=== PATIENT | male | born 1965 | race Caucasian/White ===

== ENCOUNTER 2020-10-15 15:22 | Outpatient (REF) | payer OTHER, SELFPAY ==
--- NOTE | 2020-10-15 15:28 | XR_ITS ---
EXAMINATION: XR knee LT 4V, XR knee RT 4V CLINICAL INFORMATION: Bilateral knee pain. COMPARISON: None. TECHNIQUE: Standing AP and lateral views of both knees were obtained with tunnel and sunrise views of each knee. FINDINGS: Right knee: No bony abnormality. Joint spaces are maintained. Patellar alignment is normal. No joint effusion is demonstrated. Left knee: 4 views of left knee are also normal. XR/XR knee RT 4V IMPRESSION: Unremarkable examination.
--- NOTE | 2020-10-15 15:28 | XR_ITS ---
EXAMINATION: XR knee LT 4V, XR knee RT 4V CLINICAL INFORMATION: Bilateral knee pain. COMPARISON: None. TECHNIQUE: Standing AP and lateral views of both knees were obtained with tunnel and sunrise views of each knee. FINDINGS: Right knee: No bony abnormality. Joint spaces are maintained. Patellar alignment is normal. No joint effusion is demonstrated. Left knee: 4 views of left knee are also normal. XR/XR knee LT 4V IMPRESSION: Unremarkable examination.
[2020-10-15 17:05] LABS: Anion Gap 12 (12-20); Blood Urea Nitrogen 13 mg/dL (9-16); Calcium 9.6 mg/dL (8.4-10.2); Carbon Dioxide 30 mmol/L (22-29); Chloride 101 mmol/L (96-108); Cholesterol 216 mg/dL; Estimated Glomerular Filt Rate > 60; Glucose Fasting 91 mg/dL (60-99); HDL Cholesterol 62 mg/dL; LDL Cholesterol Calculated 140 mg/dl; Potassium 4.4 mmol/l (3.3-5.1); Sodium 139 mmol/L (135-145); Triglycerides 73 mg/dL
[2020-10-15 17:28] LABS: Prostate Specific Antigen Scr 1.41 ng/mL (<0.05-4.0); TSH reflex Free T4 1.76 mIU/mL (0.32-4.0)
== END 2020-10-15 15:23 | disposition home or self-care (01) ==
LOC: HO.HMGCLDS 15:22
PROVIDERS: PCP Nurse Practitioner Family; Visit Provider Nurse Practitioner Family
DX: Z00.00 Encounter for general adult medical examination without abnormal findings (principal); M25.561 Pain in right knee; M25.562 Pain in left knee; Z12.5 Encounter for screening for malignant neoplasm of prostate
CPT/HCPCS: 73564; 80048; 80061; 84153; 84443

== ENCOUNTER 2021-05-26 14:26 | Outpatient (REF) | payer OTHER, SELFPAY ==
[2021-05-26 17:20] LABS: Alanine Aminotransferase 43 U/L (0-40); Albumin Level 4.4 g/dL (3.5-5.0); Alkaline Phosphatase 45 U/L (39-117); Anion Gap 14 (12-20); Aspartate Amino Transferase 37 U/L (5-37); Bilirubin Total 1.7 mg/dL (0.0-1.0); Blood Urea Nitrogen 15 mg/dL (9-16); Calcium 9.6 mg/dL (8.4-10.2); Carbon Dioxide 26 mmol/L (22-29); Chloride 103 mmol/L (96-108); Cholesterol 199 mg/dL; Estimated Glomerular Filt Rate > 60; Glucose Fasting 100 mg/dL (60-99); HDL Cholesterol 71 mg/dL; LDL Cholesterol Calculated 114 mg/dl; Potassium 4.4 mmol/L (3.3-5.1); Sodium 139 mmol/L (135-145); Total Protein 6.9 g/dL (6.5-8.0); Triglycerides 71 mg/dL
[2021-05-26 17:41] LABS: TSH reflex Free T4 1.03 uIU/mL (0.32-4.0)
== END 2021-05-26 14:27 | disposition home or self-care (01) ==
LOC: HO.HMGCLDS 14:26
PROVIDERS: PCP Nurse Practitioner Family; Visit Provider Nurse Practitioner Family
DX: E78.5 Hyperlipidemia, unspecified (principal); I10 Essential (primary) hypertension
CPT/HCPCS: 36415; 80053; 80061; 84443

== ENCOUNTER 2021-06-07 15:42 | Outpatient (REF) | payer OTHER, SELFPAY ==
--- NOTE | ~2021-06-07 | XR_ITS ---
EXAMINATION: XR CERVICAL SPINE CLINICAL INFORMATION: Neck pain. COMPARISON: None TECHNIQUE: 3 views of the cervical spine were obtained. FINDINGS: No abnormal prevertebral soft tissue swelling is identified. C7 is not totally included on imaging. No acute fracture is identified. No subluxation is seen. Disc spaces are maintained. There is some marginal spurring present at the C5-C6 level. XR/XR cervical spine 3V IMPRESSION: Limited visualization of C7. Mild degenerative change at the C5-C6 disc space level.
== END 2021-06-07 15:43 | disposition home or self-care (01) ==
LOC: HO.HMGCX 15:42
PROVIDERS: PCP Nurse Practitioner Family; Visit Provider Nurse Practitioner Family
DX: M50.90 Cervical disc disorder, unspecified, unspecified cervical region (principal)
CPT/HCPCS: 72040

== ENCOUNTER 2021-09-15 14:31 | Outpatient (REF) | payer OTHER, SELFPAY ==
--- NOTE | ~2021-09-15 | MR_ITS ---
EXAMINATION: MR CERVICAL SPINE WITHOUT CONTRAST CLINICAL INFORMATION: Cervical disc disorder. COMPARISON: None available. TECHNIQUE: MRI of the cervical spine was performed using routine sequences without contrast. FINDINGS: The cervical vertebral bodies maintain normal heights and alignment. There is no significant disc height loss. Chronic fatty endplate changes are seen at C5-C6 and C6-C7. The cord signal appears normal. Fatty marrow changes are seen at the C7-T1 facets bilaterally. The imaged portions of the intracranial contents appear normal. The extraspinal soft tissues appear normal. SPINAL LEVELS: C2-C3: No posterior disc abnormality. Moderate right facet arthropathy. No spinal canal or neural foraminal stenosis. C3-C4: Disc osteophyte complex with uncovertebral hypertrophy and moderate left and mild right facet arthropathy resulting in severe left and moderate to severe right neural foraminal stenosis. No spinal canal stenosis. C4-C5: Disc osteophyte complex with uncovertebral hypertrophy and severe right facet arthropathy resulting in severe right and mild left neural foraminal stenosis. No spinal canal stenosis. C5-C6: Disc osteophyte complex with uncovertebral hypertrophy and mild facet arthropathy resulting in mild to moderate left and mild right neural foraminal stenosis. C6-C7: Central disc protrusion resulting in mild spinal canal stenosis. Left more than right uncovertebral hypertrophy and mild facet arthropathy results in moderate left and mild right neural foraminal stenosis. C7-T1: No posterior disc abnormality. No spinal canal or neural foraminal stenosis. MR/MR cervical spine wo con IMPRESSION: Multilevel degenerative spondylotic changes. No significant narrowing of the spinal canal. A central protrusion at C6-C7 mildly narrows the spinal canal. Multilevel neural foraminal stenosis is seen and appears severe on the left and moderate to severe on the right at C3-C4, severe on the right at C4-C5 and less advanced at other levels.
== END 2021-09-15 14:32 | disposition home or self-care (01) ==
LOC: HO.MRI 14:31
PROVIDERS: PCP Nurse Practitioner Family; Visit Provider Nurse Practitioner Family
DX: M50.90 Cervical disc disorder, unspecified, unspecified cervical region (principal); R20.0 Anesthesia of skin; R20.2 Paresthesia of skin; R93.7 Abnormal findings on diagnostic imaging of other parts of musculoskeletal system
CPT/HCPCS: 72141

== ENCOUNTER 2021-09-20 | Outpatient (REF) | payer OTHER, SELFPAY ==
[2021-09-21 12:58] LABS: Influenza A PCR NEGATIVE (Negative); Influenza B PCR NEGATIVE (Negative); Resp Syncy Virus RNA Qual PCR NEGATIVE (Negative); SARS COV2 PCR INHOUSE NEGATIVE (Negative)
== END 2021-09-20 00:01 | disposition home or self-care (01) ==
LOC: HO.LNP
PROVIDERS: Visit Provider Internal Medicine
DX: Z20.822 Contact with and (suspected) exposure to COVID-19 (principal); R43.9 Unspecified disturbances of smell and taste
CPT/HCPCS: 0241U

== ENCOUNTER 2022-01-19 13:24 | Outpatient (REF) | payer OTHER, SELFPAY ==
[2022-01-19 16:29] LABS: Appearance Urine CLEAR; Color Urine YELLOW; Glucose Urine UA NEG (NEG); Leukocyte Esterase Urine NEG (NEG); Nitrite Urine NEG (NEG); Urine Blood NEG (NEG); Urine Ketones NEG (NEG); Urine Protein NEG (NEG-TRACE)
[2022-01-19 16:39] LABS: Alanine Aminotransferase 30 U/L (0-40); Albumin Level 4.4 g/dL (3.5-5.0); Alkaline Phosphatase 42 U/L (39-117); Anion Gap 14 (12-20); Aspartate Amino Transferase 32 U/L (5-37); Bilirubin Total 1.8 mg/dL (0.0-1.0); Blood Urea Nitrogen 14 mg/dL (9-16); Calcium 9.9 mg/dL (8.4-10.2); Carbon Dioxide 29 mmol/L (22-29); Chloride 102 mmol/L (96-108); Estimated Glomerular Filt Rate > 60; Glucose Fasting 112 mg/dL (60-99); Potassium 4.9 mmol/L (3.3-5.1); Sodium 140 mmol/L (135-145); Total Protein 6.9 g/dL (6.5-8.0)
[2022-01-19 17:02] LABS: Prostate Specific Antigen Scr 1.43 ng/mL (<0.05-4.0); TSH reflex Free T4 1.72 uIU/mL (0.32-4.0)
== END 2022-01-19 13:25 | disposition home or self-care (01) ==
LOC: HO.HMGCLDS 13:24
PROVIDERS: Visit Provider Nurse Practitioner Family
DX: Z00.00 Encounter for general adult medical examination without abnormal findings (principal); Z12.5 Encounter for screening for malignant neoplasm of prostate
CPT/HCPCS: 36415; 80053; 81003; 84153; 84443

== ENCOUNTER 2022-01-21 10:33 | Emergency (ER) | payer OTHER, SELFPAY ==
--- NOTE | ~2022-01-21 | CT_ITS ---
EXAMINATION: CT ABDOMEN AND PELVIS WITHOUT CONTRAST CLINICAL INFORMATION: Right lower quadrant pain COMPARISON: None. TECHNIQUE: Multidetector volumetric imaging was performed from the lung bases through the pubic symphysis. Sagittal and coronal reformatted images were obtained on the technologist workstation. This CT examination was performed using dose optimization techniques as appropriate, variously including the following: *Automated exposure control *Adjustment of mA and/or kV according to patient size (this includes techniques or standardized protocols for targeted exams where dose is matched to indication/reason for exam; i.e. extremities or head) *Use of iterative reconstruction technique FINDINGS: The lack of intravenous contrast limits evaluation of the solid visceral organs including the liver, spleen, pancreas, and kidneys. LUNG BASES: Linear atelectasis at both lung bases. No focal consolidation or mass. Normal heart size. LIVER, GALLBLADDER, AND BILIARY TREE: There is patchy low density throughout the liver consistent with heterogeneous fatty infiltration. Motion artifact further limits evaluation. No gross focal abnormality seen. The gallbladder is unremarkable with no evidence of radiopaque gallstones, gallbladder wall thickening, or obvious pericholecystic inflammatory changes. PANCREAS: Limited non-contrast evaluation is normal. No [place]-pancreatic fluid. SPLEEN: Limited non-contrast evaluation is normal. ADRENAL GLANDS: Normal; no adrenal mass. KIDNEYS AND URETERS: Limited non-contrast evaluation is normal. No hydronephrosis, hydroureter, or calculi seen. No perinephric stranding. GASTROINTESTINAL TRACT: Small bowel and colon are non-dilated. No bowel wall thickening. No pericolonic inflammatory changes to suggest colitis or diverticulitis. Normal appendix. ABDOMINAL WALL: Fat-containing right inguinal hernia. LYMPH NODES: No pathologically enlarged lymph nodes in the abdomen or pelvis. VASCULAR: Normal caliber abdominal aorta. BLADDER: Unremarkable. PELVIC VISCERA: Normal noncontrast appearance of the prostate and seminal vesicles. OSSEOUS STRUCTURES: There is calcification in the L2-L3 disc. No acute osseous abnormality. CT/CT abdomen pelvis wo con IMPRESSION: Normal appendix. Fat-containing right inguinal hernia. Heterogeneous fatty infiltration of the liver. No additional findings to explain right lower quadrant abdominal pain.
[2022-01-21 11:01] VITALS: BP 145/96; PULSE 82; RESP 18; TEMP 36.8; O2SAT 98; BMI 31.4
--- NOTE | 2022-01-21 11:31 | ED_ITS ---
HPI - Abdominal Pain General Chief Complaint: Abdominal Pain Stated Complaint: R flank pain Time Seen by Provider: 01/21/22 11:28 Source: patient Mode of arrival: ambulatory Limitations: no limitations History of Present Illness HPI narrative: 56-year-old male came in for evaluation of her right lower quadrant pain. 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 Pain is worsening with movement, no other aggravating factor, pain is relieved by sitting still, no other associated nausea or vomiting or fever. No dysuria, no urinary frequency no bloody urine. Never had history of abdominal surgery. No history of kidney stones. Related Data Previous Rx's Medication Instructions Recorded ibuprofen 600 mg tablet 600 mg PO TID #90 tab 07/29/21 losartan 100 mg tablet 100 mg PO DAILY 90 Days #90 tab 08/24/21 lorazepam 1 mg tablet 1 mg PO DAILY PRN 30 Days #30 tab 10/04/21 sildenafil 50 mg tablet 50 mg PO DAILY PRN 7 Days #7 tab 11/26/21 cyclobenzaprine 10 mg tablet 10 mg PO TID PRN #10 tab 01/21/22 Allergies Allergy/AdvReac Type Severity Reaction Status Date / Time erythromycin base Allergy hives Verified 11/08/21 17:50 Review of Systems Review of Systems All other systems are reviewed and are negative Constitutional: Reports as per HPI and Reports no additional constitutional complaints Eyes: Reports as per HPI and Reports no additional eye complaints Reports system reviewed and no additional complaints, except as documented Cardiovascular: Reports as per HPI and Reports no additional cardiovascular complaints Respiratory: Reports as per HPI and Reports no additional respiratory complaints Gastrointestinal: Reports as per HPI and Reports no additional gastrointestinal complaints Genitourinary: Reports no additional female genitourinary complaints Musculoskeletal: Reports no additional musculoskeletal complaints Skin/Breast: Reports system reviewed and no additional complaints, except as docu Psychiatric: Reports no additional psychiatric complaints Endocrine: Reports no additional endocrine complaints Hematologic/Lymphatic: Reports no additional hematologic/lymphatic complaints Allergic/Immunologic: Reports no additional allergic/immunologic complaints Reports system reviewed and no additional complaints, except as documented and Reports Abnormal speech present [facility] Social History Social History Alcohol intake: current Alcohol intake frequency: a few times a week Alcohol type: beer, wine and hard liquor Patient Tobacco Use Status: Never used Tobacco Use of substances other than those prescribed or required for medical reasons: No Advance Directives: No Advance Directives Information Provided: No Physical Exam ED Vital Signs: Vital Signs - 24 hr 01/21/22 11:01 01/21/22 13:01 01/21/22 14:10 Temperature 98.2 F 98.1 F Pulse Rate 82 74 74 Respiratory Rate 18 18 18 Blood Pressure 145/96 H 145/91 H 148/91 H Pulse Oximetry 98 98 97 BMI result Body Mass Index 31.4 Vital signs have been reviewed as appeared to be correct. Blood pressure normal. Heart rate normal. Respiration rate normal. Temperature normal. Oxygen saturation normal. Appearance: Alert. Oriented X3. No acute distress. Head: Normal external exam. Normocephalic. Atraumatic. No Michael signs noted. No raccoon eyes noted Eyes: PERRLA. EOMI. Conjunctiva and sclera normal. Eyelids normal. ENT: TM's Normal. Pharynx normal. Uvula midline. Moist mucous membranes. No trismus noted. No drooling noted. No muffled voice noted. Neck: Normal inspection. Neck supple. FROM. No adenopathy. Thyroid Normal. No meningeal signs. No neck mass noted. CVS: Normal heart rate and rhythm. Heart sound normal. No murmurs noted. Pulses normal throughout. Respiratory: No respiratory distress. Painless inspiration. Breath sounds normal. No wheezes/rales/rhonchi noted. Chest nontender. No accessory muscle usage noted or decreased air movement noted. Abdomen: Soft and nontender. Bowel sounds normal in all 4 quadrants. No distention noted. No organomegaly noted. No visible injury noted. Back: No CVA tenderness. Full range of motion noted. Skin: Skin warm and dry. Normal skin color. Normal skin turgor. No rashes/lesions/lacerations noted. Extremities: No lower extremity edema. Extremities exhibit normal range of motion. Extremities nontender. Neuro: Oriented X 3. Cranial nerve exam: II-XII are grossly intact No motor deficit. No sensory deficit. Reflexes normal. Course Course Course Narrative: Assessment and plan. [age] year male came in with right side abdominal pain and right flank pain, patient had a new job that he needs to carry heavy boxes, CT of the abdomen and pelvis showed no acute intra-abdominal pathology. Patient's symp toms is likely to be a pulled muscle, on the labs showed incidental hyperkalemia, patient had a recent physical exam 2 days ago with normal blood workup. Patient was instructed to follow up with his primary doctor for repeat potassium in the future. MDM - Abdominal Pain Medical Records Attestation: I reviewed the patient's medical records. Lab Data Attestation: I reviewed the patient's lab results. Result diagrams: 01/21/22 12:12 01/21/22 12:12 Labs: Lab Results 01/21/22 01/21/22 01/21/22 Range/Units 12:12 12:12 12:12 WBC 4.5 L (4.8-10.8) X10*3/uL RBC 4.86 (4.60-5.80) X10*6/uL Hgb 16.1 (14.0-18.0) g/dl Hct 46.2 (42.0-52.0) % MCV 95.1 (80.0-98.0) fL MCH 33.1 H (27.0-33.0) pg MCHC 34.8 (31.0-36.0) g/dl RDW 12.1 (11.0-16.0) % Plt Count 181 (160-400) X10*3/uL MPV 10.0 (9.4-12.4) fL Immature Gran % (Auto) 0.9 H (0.0-0.4) % Neut % (Auto) 65.4 (45-73) % Lymph % (Auto) 21.8 (20-40) % [place] % (Auto) 9.9 (2-11) % Eos % (Auto) 1.3 (0-4) % Baso % (Auto) 0.7 (0-2) % Lymph # (Auto) 1.0 L (1.2-4.9) X10*3/uL [place] # (Auto) 0.4 (0.1-1.2) X10*3/uL Eos # (Auto) 0.1 (0.0-0.4) X10*3/uL Baso # (Auto) 0.0 (0.0-0.2) X10*3/uL Abs Immat Gran (auto) 0.04 H (0.00-0.03) X10*3/uL Absolute Neuts (auto) 2.9 (2.0-8.3) x10*3/uL Absolute Nucleated RBC 0.000 (0.0-0.012) X10*3/uL Nucleated RBC % (auto) 0.0 (0.0-0.2) /100WBC Sodium 139 (135-145) mmol/L Potassium 5.6 H (3.3-5.1) mmol/L Chloride 103 (96-108) mmol/L Carbon Dioxide 28 (22-29) mmol/L Anion Gap 14 (12-20) BUN 13 (9-16) mg/dL Creatinine 1.01 (0.5-1.4) mg/dL Estim Creat Clear Calc 109.6 Estimated GFR > 60 Random Glucose 118 H (60-115) mg/dL Calcium 10.2 (8.4-10.2) mg/dL Total Bilirubin 1.1 H (0.0-1.0) mg/dL Direct Bilirubin 0.3 (0.0-0.5) mg/dL AST 41 H (5-37) U/L ALT 37 (0-40) U/L Alkaline Phosphatase 40 (39-117) U/L Total Protein 7.6 (6.5-8.0) g/dL Albumin 4.5 (3.5-5.0) g/dL Lipase 51 (8-78) U/L Urine Color YELLOW Urine Appearance CLEAR Urine pH 6.0 (5.0-8.0) Ur Specific [place] 1.020 (1.005-1.025) Urine Protein NEG (NEG-TRACE) MG/DL Urine Glucose (UA) NEG (NEG) MG/DL Urine Ketones NEG (NEG) MG/DL Urine Blood NEG (NEG) Urine Nitrite NEG (NEG) Ur Leukocyte Esterase NEG (NEG) Imaging Data CT scan - abdomen: Attestation: I personally reviewed and interpreted this imaging study as follows: Radiologist's impression: Normal appendix. Fat-containing right inguinal hernia. Heterogeneous fatty infiltration of the liver. No additional findings to explain right lower quadrant abdominal pain. ? Discharge Plan Discharge Clinical Impression: Acute myofascial pain Patient Disposition: Home, Self-Care Instructions: Musculoskeletal Pain (ED) Prescriptions: New cyclobenzaprine 10 mg tablet 10 mg PO TID PRN (Reason: muscle spasm) Qty: 10 0RF No Action losartan 100 mg tablet 100 mg PO DAILY 90 Days Qty: 90 0RF sildenafil 50 mg tablet 50 mg PO DAILY PRN (Reason: sexual activity) 7 Days Qty: 7 0RF Rx Instructions: administer 30 minutes to 4 hours before activity ibuprofen 600 mg tablet 600 mg PO TID Qty: 90 0RF lorazepam 1 mg tablet 1 mg PO DAILY PRN (Reason: anxiety) 30 Days Qty: 30 0RF Referrals: Иван Riley, [employer] [Primary Care Provider] - 2 days
[2022-01-21] MEDS: 0.9 % Sodium Chloride 1,000 ML 999 ML IV (12:14)
[2022-01-21] MEDS: Morphine Sulfate 2 MG/ML CARTRIDGE 1 MG IVPUSH (12:18)
[2022-01-21 12:20] LABS: MANUAL DIFF FLAG NO
--- NOTE | 2022-01-21 12:21 | PC.NURSE ---
patient a&ox3, c/o rt lower back pain 06/21, iv inserted, labs drawn, urine obtained, pt medicated per order, will continue to monitor.
[2022-01-21 12:24] LABS: Basophils Percent Auto 0.7 % (0-2); Eosinophils Absolute Auto 0.1 X10*3/uL (0.0-0.4); Eosinophils Percent Auto 1.3 % (0-4); Hematocrit 46.2 % (42.0-52.0); Hemoglobin 16.1 g/dl (14.0-18.0); Imm Gran Abs Auto 0.04 X10*3/uL (0.00-0.03); Imm Gran Pct Auto 0.9 % (0.0-0.4); Lymphocytes Percent Auto 21.8 % (20-40); Mean Corpuscular HGB Conc 34.8 g/dl (31.0-36.0); Mean Corpuscular Hemoglobin 33.1 pg (27.0-33.0); Mean Corpuscular Volume 95.1 fL (80.0-98.0); Monocytes Absolute Auto 0.4 X10*3/uL (0.1-1.2); Monocytes Percent Auto 9.9 % (2-11); Neutrophils Absolute Auto 2.9 x10*3/uL (2.0-8.3); Neutrophils Percent Auto 65.4 % (45-73); Platelet Count 181 X10*3/uL (160-400); Red Blood Count 4.86 X10*6/uL (4.60-5.80); Red Cell Distribution Width 12.1 % (11.0-16.0); White Blood Count 4.5 X10*3/uL (4.8-10.8)
[2022-01-21 12:37] LABS: Appearance Urine CLEAR; Color Urine YELLOW; Glucose Urine UA NEG (NEG); Leukocyte Esterase Urine NEG (NEG); Nitrite Urine NEG (NEG); Urine Blood NEG (NEG); Urine Ketones NEG (NEG); Urine Protein NEG (NEG-TRACE)
[2022-01-21 12:39] LABS: Alanine Aminotransferase 37 U/L (0-40); Albumin Level 4.5 g/dL (3.5-5.0); Alkaline Phosphatase 40 U/L (39-117); Anion Gap 14 (12-20); Aspartate Amino Transferase 41 U/L (5-37); Bilirubin Direct 0.3 mg/dL (0.0-0.5); Bilirubin Total 1.1 mg/dL (0.0-1.0); Blood Urea Nitrogen 13 mg/dL (9-16); Calcium 10.2 mg/dL (8.4-10.2); Carbon Dioxide 28 mmol/L (22-29); Chloride 103 mmol/L (96-108); Creatinine Clr Calc Pharmacy 109.6; Estimated Glomerular Filt Rate > 60; Glucose Random 118 mg/dL (60-115); Lipase 51 U/L (8-78); Potassium 5.6 mmol/L (3.3-5.1); Sodium 139 mmol/L (135-145); Total Protein 7.6 g/dL (6.5-8.0)
[2022-01-21] MEDS: LORazepam 1 MG TABLET PO (12:53)
--- NOTE | 2022-01-21 12:54 | PC.NURSE ---
pt requested ativan which he takes at home for anxiety, provider notfied, patient was medicated per order, will continue to monitor.
[2022-01-21 13:01] VITALS: BP 145/91; PULSE 74; RESP 18; TEMP 36.7; O2SAT 98
--- NOTE | 2022-01-21 13:11 | PC.NURSE ---
pt a&ox3, vss, bp elevated - pt didn't take hypertension medication this morning, friend at bedside, will continue to monitor.
--- NOTE | 2022-01-21 13:26 | PC.NURSE ---
patients ivf continue to run slowly will continue to monitor.
[2022-01-21 14:10] VITALS: BP 148/91; PULSE 74; RESP 18; O2SAT 97
== END 2022-01-21 14:45 | disposition home or self-care (01) ==
PROVIDERS: Emergency Provider Emergency Medicine; PCP Nurse Practitioner Family
DX: M79.10 Myalgia, unspecified site (principal); E87.5 Hyperkalemia; I10 Essential (primary) hypertension; E78.5 Hyperlipidemia, unspecified
CPT/HCPCS: 36415; 74176; 80048; 80076; 81003; 83690; 85025; 96361; 96374; 99284; J2270

== ENCOUNTER 2022-03-30 14:48 | Outpatient (REF) | payer OTHER, SELFPAY ==
[2022-03-30 15:15] LABS: Binax Internal Control QC Valid; Binax Now Covid-19 Ag Negative (Negative)
[2022-03-30 16:58] LABS: Influenza A PCR NEGATIVE (Negative); Influenza B PCR NEGATIVE (Negative); Resp Syncy Virus RNA Qual PCR NEGATIVE (Negative); SARS COV2 PCR INHOUSE POSITIVE (Negative)
== END 2022-03-30 14:49 | disposition home or self-care (01) ==
LOC: HO.HMGCLDS 14:48
PROVIDERS: PCP Nurse Practitioner Family
DX: Z20.822 Contact with and (suspected) exposure to COVID-19 (principal); R05.9 Cough, unspecified
CPT/HCPCS: 0241U; 87811; C9803

== ENCOUNTER 2023-01-22 14:34 | Outpatient (REF) | payer OTHER, SELFPAY ==
--- NOTE | ~2023-01-22 | XR_ITS ---
EXAMINATION: XR CHEST CLINICAL INFORMATION: Shortness of breath COMPARISON: None TECHNIQUE: 2 views of the chest were obtained. FINDINGS: No significant abnormality is noted involving the heart, lungs, mediastinum, bony thorax or soft tissues. XR/XR chest 2V IMPRESSION: Unremarkable examination.
[2023-01-22 16:25] LABS: MANUAL DIFF FLAG NO
[2023-01-22 16:28] LABS: Basophils Percent Auto 0.8 % (0-2); Eosinophils Percent Auto 0.8 % (0-4); Hematocrit 47.3 % (42.0-52.0); Hemoglobin 16.8 g/dl (14.0-18.0); Imm Gran Abs Auto 0.04 X10*3/uL (0.00-0.03); Imm Gran Pct Auto 0.8 % (0.0-0.4); Lymphocytes Absolute Auto 0.9 X10*3/uL (1.2-4.9); Mean Corpuscular HGB Conc 35.5 g/dl (31.0-36.0); Mean Corpuscular Hemoglobin 33.2 pg (27.0-33.0); Mean Corpuscular Volume 93.5 fL (80.0-98.0); Mean Platelet Volume 10.1 fL (9.4-12.4); Monocytes Absolute Auto 0.5 X10*3/uL (0.1-1.2); Monocytes Percent Auto 10.9 % (2-11); Neutrophils Absolute Auto 3.2 x10*3/uL (2.0-8.3); Neutrophils Percent Auto 67.7 % (45-73); Platelet Count 198 X10*3/uL (160-400); Red Blood Count 5.06 X10*6/uL (4.60-5.80); Red Cell Distribution Width 12.1 % (11.0-16.0); White Blood Count 4.8 X10*3/uL (4.8-10.8)
[2023-01-22 16:38] LABS: D Dimer High Sensitivity < 150 NG/ML
[2023-01-22 16:42] LABS: Appearance Urine Cloudy; Color Urine Yellow; Glucose Urine UA Negative (Negative); Leukocyte Esterase Urine Negative (Negative); Nitrite Urine Negative (Negative); Urine Blood Negative (Negative); Urine Ketones Trace mg/dL (Negative); Urine Protein Negative (Neg-Trace)
[2023-01-22 17:00] LABS: Alanine Aminotransferase 73 U/L (0-40); Albumin Level 4.4 g/dL (3.5-5.0); Alkaline Phosphatase 40 U/L (39-117); Anion Gap 13 (12-20); Aspartate Amino Transferase 50 U/L (5-37); Bilirubin Total 1.8 mg/dL (0.0-1.0); Blood Urea Nitrogen 14 mg/dL (9-16); Calcium 9.8 mg/dL (8.4-10.2); Carbon Dioxide 28 mmol/L (22-29); Chloride 104 mmol/L (96-108); Estimated Glomerular Filt Rate > 60; Glucose Random 120 mg/dL (60-115); Potassium 4.6 mmol/L (3.3-5.1); Sodium 140 mmol/L (135-145); Total Protein 6.7 g/dL (6.5-8.0)
[2023-01-22 17:15] LABS: TSH reflex Free T4 1.57 uIU/mL (0.32-4.0)
== END 2023-01-22 14:35 | disposition home or self-care (01) ==
LOC: HO.HMGCX 14:34
PROVIDERS: PCP Nurse Practitioner Family; Visit Provider Nurse Practitioner Family
DX: R06.02 Shortness of breath (principal)
CPT/HCPCS: 36415; 71046; 80053; 81003; 84443; 85025; 85379

== ENCOUNTER 2023-02-01 12:08 | Outpatient (REF) | payer OTHER, SELFPAY ==
[2023-02-01 14:48] LABS: CDiff Gene PCR NEGATIVE (Negative)
[2023-02-01 16:30] LABS: Adenovirus F 40/41 Not Detected (Not Detect.); Astrovirus Not Detected (Not Detect.); Campylobacter Not Detected (Not Detect.); Cryptosporidium Not Detected (Not Detect.); Cyclospora cayetanensis Not Detected (Not Detect.); E. coli EAEC Not Detected (Not Detect.); E. coli EPEC Not Detected (Not Detect.); E. coli ETEC Not Detected (Not Detect.); E. coli STEC Not Detected (Not Detect.); Entamoeba histolytica Not Detected (Not Detect.); Giardia lamblia Not Detected (Not Detect.); Norovirus GI/GII Not Detected (Not Detect.); Plesiomonas shigelloides Not Detected (Not Detect.); Rotavirus A Not Detected (Not Detect.); Salmonella Not Detected (Not Detect.); Sapovirus Not Detected (Not Detect.); Shigella sp./EIEC Not Detected (Not Detect.); Vibrio Not Detected (Not Detect.); Vibrio Cholerae Not Detected (Not Detect.); Yersinia enterocolitica Not Detected (Not Detect.)
== END 2023-02-01 12:09 | disposition home or self-care (01) ==
LOC: HO.HMGCLNP 12:08
PROVIDERS: PCP Nurse Practitioner Family; Visit Provider Nurse Practitioner Family
DX: R19.7 Diarrhea, unspecified (principal)
CPT/HCPCS: 87338; 87493; 87507

== ENCOUNTER → 2023-03-15 08:04 | Outpatient (REF) | payer OTHER, SELFPAY ==
--- NOTE | 2023-03-15 08:06 | CA_ITS ---
Transthoracic Echocardiogram Patient (Last, First, Middle): Zenon France M Gender: Male Date of : 1965 Age: 58 Procedure Date: 03/15/2023 Procedure Type: Transthoracic Echocardiogram Location: OP Height: 187.96 cm Weight: 113.4 kg BSA: 2.39 m2 Heart Rate: bpm BP: 135 / 80 mmHg Straightedge Worker: JULIO Referring MD: Иван Riley [facility] Senior Sales Operations Analyst: Aaron Rubi MD Symptoms: R00.2 - Palpitations Study Quality: Adequate with contrast ECG Rhythm: Sinus Conclusions: - 1. Normal LV systolic function with LVEF of 55-60% with mild LVH with impaired relaxation filling pattern 2. Mildly dilated left atrium 3. Normal cardiac valvular Doppler 4. Mildly dilated ascending aorta at 3.9 cm 5. Normal RV systolic pressure 6. No gross pericardial effusion Findings Procedure Information Contrast agent, definity, is being given per protocol without apparent complications. Left Ventricle Normal left ventricular size and systolic function. There is mildly increased left ventricular wall thickness. The visually estimated ejection fraction is between 55-60%. Spectral Doppler is indicative of an impaired relaxation filling pattern. E/E prime ratio is between 8 and 15 consistent with indeterminate filling pressures. Wall Motion Rest Echo Findings The basal inferior and basal inferoseptal segments are hypokinetic. All other scored wall segments showed normal motion. Right Ventricle Mildly increased right ventricular cavity size. There is normal right ventricular systolic function. Atria The left atrium is mildly dilated. There is lipomatous hypertrophy of the interatrial septum. Interatrial shunt cannot be excluded. The right atrium is likely dilated. Aortic Valve The aortic valve was not well visualized. There is no aortic valve stenosis. There is no aortic valve regurgitation. Mitral Valve Likely normal mitral valve structure and function. There is trace mitral valve regurgitation. There is no mitral valve stenosis. Pulmonic Valve The pulmonic valve was not well visualized. Tricuspid Valve Likely normal tricuspid valve structure and function. Tricuspid regurgitation envelope is inadequate for calculation of right ventricular systolic pressure. Normal right atrial pressure. Great Vessels The pulmonary artery was not well visualized. There is mild dilatation of the ascending aorta. Venous The inferior vena cava is normal in size and collapses greater than 50% with inspiration. Pericardium/Pleural There is no evidence of pericardial effusion. Prior Study Comparison No prior study available for comparison. Measurements 2D Linear Measurements IVSd: 1.31 0.6-0.9/0.6-1.0 cm LVIDd: 4.37 3.9-5.3/4.2-5.9 cm LVIDd Index: 1.83 2.4-3.2/2.2-3.1 cm/m2 LVIDs: 3.15 2.0-3.6 cm LVPWd: 1.27 0.7-1.1 cm LA Diam: 3.70 2.7-3.8/3.0-4.0 cm LAIDs Index: 1.55 1.5-2.3 cm/m2 LV Mass: 262.34 67-162/88-224 g LV Mass Index: 109.77 43-95/49-115 g/m2 LVOT Diam: 2.20 3.0+(-)1.3 cm 2D Systolic Function EF 4C: 51.70 >55% EF 2C: 61.20 >55% EF BiP: 56.50 >55% Mitral Valve MV Pk E: 0.59 MV PK A: 0.70 MV Decel Time: 365.00 E/A: 0.80 E'Lateral: 10.80 E'Medial: 8.05 E/E' Med: 7.30 E/E' Lat: 5.40 PHT: 107.00 MVA PHT: 2.06 Decel [place]: 1.61 Aortic Valve AoV Pk [place]: 1.27 AoV Mn [place]: 0.95 AoV VTI: 0.31 AoV Pk Grad: 6.00 Aov Mn Grad: 4.00 LASHAE Cont.VTI: 2.95 LVOT LVOT Pk [place]: 1.02 LVOT Mn [place]: 0.69 LVOT VTI: 0.24 LVOT Pk Grad: 4.00 LVOT Mn Grad: 2.00 LVOT Diam: 2.20 LVOT Area: 3.80 Diastolic Function MV Pk E: 0.59 MV Pk A: 0.70 E/A: 0.80 E'Medial: 8.05 E/E' Med: 7.30 E' Laterial: 10.80 E/E' Lat: 5.40 Right Ventricle TAPSE (mm): 20.30 TVS' Tor[place]: 12.30 Tricuspid Valve RA Press: 3.00 Great Vessels Aorta Sinus of Valsalva: 4.30 2.0-3.[address] [place]: 3.56 1.7-3.4 cm Ao Asc: 3.90 2.1-3.4 cm Updated in Other Vendor System with Status of Final Aaron Rubi MD electronically signed on 03/16/2023 3:48:05 PM with status of Final
== END ==
LOC: HO.CARD 08:04
PROVIDERS: PCP Nurse Practitioner Family; Visit Provider Nurse Practitioner Family
DX: R00.2 Palpitations (principal); R06.02 Shortness of breath
CPT/HCPCS: 93306; Q9957

== ENCOUNTER → 2023-03-20 10:34 | Outpatient (REF) | payer OTHER, SELFPAY ==
--- NOTE | ~2023-03-20 | NM_ITS ---
EXERCISE MYOCARDIAL PERFUSION STUDY INDICATION: Shortness of breath, assess for coronary disease and ischemia TECHNIQUE: The patient was brought in for an exercise perfusion study on 03/20/2023. Patient performed exercise as per Michael protocol and was injected 30 mCi of sestamibi once target heart rate was achieved. Images were obtained using the SPECT gamma camera interlaced with the gating device. Images were obtained in supine position. Resting perfusion study was performed on 03/23/2023. Patient was administered 30 mCi of sestamibi intravenously at rest. Images were then obtained in supine position. Images were processed with the software and compared side to side in short axis, horizontal long axis and vertical long axis views. Total DLP 119mGy-cm. FINDINGS: Raw images were reviewed. The stress perfusion study showed no significant perfusion abnormality. Both uncorrected as well as CT attenuation corrected images were reviewed. The gated study shows normal LV systolic function with calculated LVEF of 70%. LV cavity is normal in size. The gated study shows normal wall thickening and contraction of segments. Resting study shows mildly diminished tracer uptake in the basal part of inferior wall. There is improvement with CT attenuation correction testing diaphragmatic attenuation artifact. Gating at rest reveals normal wall motion with ejection fraction at 53%. The findings are consistent with no clear reversible or fixed perfusion defects. NM/NM cardiolite stress test IMPRESSION: 1. Myocardial perfusion imaging study shows normal myocardial perfusion. 2. Gated LVEF is 70% during stress and 53% during rest. 3. Transient ischemic dilatation not present. EKG component of the test reported separately.
--- NOTE | 2023-03-20 10:36 | CA_ITS ---
Acquisition Time: 2023-03-20 11:09:43 Total Exercise Time: 00:09:15 Test Indications: SOB Medications: SEE H Protocol: CK Max HR: 148 BPM 90% of Pred: 163 BPM Max BP: 190/088 mmHG Max Work Load: 10.5 METS Exercise stress test exercise 9 min 15 sec of Ck protocol achieving 90% MPHR, with report of intermittent chest pains 5/10, which seemed to correlated with isolated PVCs, with exaggerated blood pressure response to exercise (baseline 122/90, max 190/88), without EKG changes. Nuclear images pending. Test reviewed with Dr. Peraza. Referred By: Иван Riley Overread By: MILLA EDWARD
== END ==
LOC: HO.CARD 10:34
PROVIDERS: PCP Nurse Practitioner Family; Visit Provider Nurse Practitioner Family
DX: R00.2 Palpitations (principal); R06.02 Shortness of breath
CPT/HCPCS: 78452; 93017; A9500

== ENCOUNTER → 2023-03-29 13:08 | Outpatient (BNVA) | payer OTHER, SELFPAY | PROVIDERS: PCP Nurse Practitioner Family; Visit Provider Nurse Practitioner Family | DX: R40.0 Somnolence (principal); R00.2 Palpitations; R06.02 Shortness of breath; R06.83 Snoring | CPT/HCPCS: 99202 ==

== ENCOUNTER → 2023-04-10 13:35 | Outpatient (REF) | payer OTHER, SELFPAY ==
--- NOTE | 2023-04-10 13:38 | HM_ITS ---
* Total monitoring time about 2 days. * Underlying rhythm is sinus. Average ventricular rate 90/Min. * Evidence of atrial fibrillation/flutter with rapid rates. [place] 30%. Longest 1hour 40 minutes. Fastest 157/Min. * Rare PVCs. One episode of 9 beat run. Monomorphic. * No significant pauses or high-grade AV blocks. * Symptoms in patient diary and patient markers correlate with atrial fibrillation. MTDD
== END ==
LOC: HO.CARD 13:35
PROVIDERS: Visit Provider Nurse Practitioner Family
DX: R00.2 Palpitations (principal)
CPT/HCPCS: 93225

== ENCOUNTER → 2023-05-03 13:07 | Outpatient (REF) | payer OTHER, SELFPAY | LOC: HO.SL 13:07 | PROVIDERS: Visit Provider Nurse Practitioner Family | DX: G47.33 Obstructive sleep apnea (adult) (pediatric) (principal); R40.0 Somnolence; R00.2 Palpitations; R06.02 Shortness of breath | CPT/HCPCS: 95806 ==

== ENCOUNTER → 2023-05-10 14:12 | Outpatient (BNVA) | payer OTHER, SELFPAY | PROVIDERS: PCP Nurse Practitioner Family; Referring Provider Nurse Practitioner Family; Visit Provider Internal Medicine | DX: I48.91 Unspecified atrial fibrillation (principal); I10 Essential (primary) hypertension; E66.01 Morbid (severe) obesity due to excess calories; F10.10 Alcohol abuse, uncomplicated; Z68.32 Body mass index [BMI] 32.0-32.9, adult | CPT/HCPCS: 99202 ==

== ENCOUNTER 2023-06-21 09:16 | Outpatient (AMB) | payer OTHER, SELFPAY ==
--- NOTE | 2023-06-21 10:01 | MHC.OFFWIV ---
Intake Vital Signs 06/21/23 10:02 Height 6 ft 2 in BP 120/92 H Blood Pressure Location Rt brachial Position Sitting Pulse 72 Pulse Source Pulse Oximeter Temp 98 F Temp Source Oral Pulse Oximetry (%) 98 Oxygen Delivery Method Room Air Intake Visit Reasons: EST/rash on left arm spreading Intake Note: Pt is here today for rash all over body, pt states its just itchy Patient Tobacco Use Status: Never used Tobacco Allergies erythromycin base Allergy (Verified 06/21/23 10:02) hives HPI HPI Comments History of Present Illness Details The patient presents to urgent care for evaluation of hives. He states that they started yesterday on his abdomen and have since spread to his arms and legs chest and back. It is quite itchy. He states that his medications have been stable he has not changed anything recently he did changes detergent a little while ago and is unsure if this is relating to the problem. PFSH Family History Maternal Grandmother Mental health disorder Social History (Updated 05/10/23 @ 14:17 by Marya Singh) Housing: Condominium Alcohol intake: current Alcohol intake frequency: 0-2 drinks per day Alcohol type: beer, wine and hard liquor Patient Tobacco Use Status: Never used Tobacco e-Cigarette/Vaping Use: Never Used service: No Current occupational status: employed Current occupation: [employer] Current occupational exposures/hazards: No Cognitive needs: No Hearing needs: No Vision needs: No Review of Systems Eyes Reports no additional complaints ENT Reports Normal hearing present and Denies dysphagia Card Denies dyspnea and Denies slow heart rate Resp Denies cough and Denies dyspnea GI Denies dysphagia and Denies heartburn Denies dysuria Musc Denies tingling Skin/Breast Reports lesions, Denies skin ulcer and Denies unusual bruising Neuro Reports Normal hearing present, Denies Sensory deficit (Neuro), Denies tingling and Denies paresthesias Physical Exam Vital Signs: Last Vital Signs Temp 98 F 06/21/23 10:02 Pulse 72 06/21/23 10:02 BP 120/92 H 06/21/23 10:02 Pulse Ox 98 06/21/23 10:02 Oxygen Delivery Method Room Air 06/21/23 10:02 Const General: healthy appearing and no acute distress Resp Effort & Inspection: normal respiratory effort and able to speak in complete sentences Skin Other: Urticaria noted over the patient's chest abdomen back upper and lower extremities Neuro Cranial nerves: Yes Normal hearing present Sensory Exam: No Sensory deficit (Neuro) Assessment & Plan Assessment & Plan (1) Urticaria: Code(s): L50.9 - Urticaria, unspecified Plan Urticaria. Unclear etiology but patient likely allergic to something in his environment. Discussed that patient should review this with his significant other and change anything that has been new in the household. No new medications. Patient interested in starting on prednisone. Advised to continue to use Benadryl 1-2 tablets every 4-6 hours as well. Medications: New prednisone Take 4 tabs p.o. daily x4 days 10 mg PO DAILY 16 tabs 0RF Coding Level of Care Code Est Pt Level 3 (34934) Diagnoses Urticaria L50.9
[2023-06-21 10:02] VITALS: BP 120/92; PULSE 72; TEMP 36.6; O2SAT 98
== END 2023-06-21 11:16 | disposition home or self-care (01) ==
PROVIDERS: PCP Nurse Practitioner Family; Visit Provider Emergency Medicine
DX: L50.9 Urticaria, unspecified (principal)
CPT/HCPCS: 99213

== ENCOUNTER → 2023-06-27 20:30 | Outpatient (REF) | payer OTHER, SELFPAY | LOC: HO.SL 20:30 | PROVIDERS: PCP Nurse Practitioner Family; Visit Provider Nurse Practitioner Family | DX: G47.30 Sleep apnea, unspecified (principal) | CPT/HCPCS: 95811 ==

== ENCOUNTER → 2023-06-27 22:39 | Outpatient (BNV) | payer OTHER, SELFPAY | PROVIDERS: PCP Nurse Practitioner Family; Visit Provider Psychiatry & Neurology Neurology | DX: G47.33 Obstructive sleep apnea (adult) (pediatric) (principal) | CPT/HCPCS: 95811 ==

== ENCOUNTER 2023-06-28 09:09 | Outpatient (REF) | payer OTHER, SELFPAY ==
[2023-06-28 11:08] LABS: MANUAL DIFF FLAG NO
[2023-06-28 11:38] LABS: Basophils Absolute Auto 0.1 X10*3/uL (0.0-0.2); Basophils Percent Auto 0.9 % (0-2); Eosinophils Absolute Auto 0.1 X10*3/uL (0.0-0.4); Eosinophils Percent Auto 1.9 % (0-4); Hematocrit 43.5 % (42.0-52.0); Hemoglobin 15.6 g/dl (14.0-18.0); Imm Gran Abs Auto 0.04 X10*3/uL (0.00-0.03); Imm Gran Pct Auto 0.7 % (0.0-0.4); Lymphocytes Absolute Auto 1.6 X10*3/uL (1.2-4.9); Mean Corpuscular HGB Conc 35.9 g/dl (31.0-36.0); Mean Corpuscular Hemoglobin 34.1 pg (27.0-33.0); Mean Platelet Volume 10.4 fL (9.4-12.4); Monocytes Absolute Auto 0.6 X10*3/uL (0.1-1.2); Monocytes Percent Auto 11.7 % (2-11); Neutrophils Absolute Auto 2.9 x10*3/uL (2.0-8.3); Neutrophils Percent Auto 54.8 % (45-73); Platelet Count 190 X10*3/uL (160-400); Red Blood Count 4.58 X10*6/uL (4.60-5.80); Red Cell Distribution Width 11.9 % (11.0-16.0); White Blood Count 5.4 X10*3/uL (4.8-10.8)
[2023-06-28 11:54] LABS: Appearance Urine Clear; Color Urine Yellow; Glucose Urine UA Negative (Negative); Leukocyte Esterase Urine Negative (Negative); Nitrite Urine Negative (Negative); PH 6.5 (5.0-9.0); Urine Blood Negative (Negative); Urine Ketones Negative (Negative); Urine Protein Negative (Neg-Trace)
[2023-06-28 11:56] LABS: Alanine Aminotransferase 75 U/L (0-40); Albumin Level 4.3 g/dL (3.5-5.0); Alkaline Phosphatase 44 U/L (39-117); Anion Gap 12 (12-20); Aspartate Amino Transferase 64 U/L (5-37); Bilirubin Total 1.6 mg/dL (0.0-1.0); Blood Urea Nitrogen 11 mg/dL (9-16); Calcium 9.5 mg/dL (8.4-10.2); Carbon Dioxide 27 mmol/L (22-29); Chloride 102 mmol/L (96-108); Cholesterol 197 mg/dL; Estimated Glomerular Filt Rate > 60; Glucose Fasting 93 mg/dL (60-99); HDL Cholesterol 71 mg/dL; LDL Cholesterol Calculated 97 mg/dl; Sodium 137 mmol/L (135-145); Triglycerides 149 mg/dL
[2023-06-28 12:05] LABS: Prostate Specific Antigen Scr 0.99 ng/mL (<0.05-4.0)
[2023-06-28 12:14] LABS: TSH reflex Free T4 3.38 uIU/mL (0.32-4.0)
== END 2023-06-28 09:10 | disposition home or self-care (01) ==
LOC: HO.HMGCLDS 09:09
PROVIDERS: PCP Nurse Practitioner Family; Visit Provider Nurse Practitioner Family
DX: Z00.00 Encounter for general adult medical examination without abnormal findings (principal); Z12.5 Encounter for screening for malignant neoplasm of prostate
CPT/HCPCS: 36415; 80053; 80061; 81003; 84153; 84443; 85025

== ENCOUNTER 2023-07-05 15:36 | Outpatient (AMB) | payer OTHER, SELFPAY ==
[2023-07-05 15:47] VITALS: BP 98/60; PULSE 76; O2SAT 95; BMI 32.5
--- NOTE | 2023-07-05 15:47 | A.OFFPC_ITS ---
Vital Signs 07/05/23 15:47 Height 6 ft 2 in Weight 253 lb 6 oz BMI 32.5 BP 98/60 Blood Pressure Location Lt brachial Position Sitting Pulse 76 Pulse Source Pulse Oximeter Pulse Oximetry (%) 95 Oxygen Delivery Method Room Air Intake Visit Reasons: 4m follow up, sob, anxiety Allergies erythromycin base Allergy (Verified 07/05/23 17:18) hives Tobacco use date assessed: 07/05/23 Dental Screening Dental Screen Date: 07/05/23 Did you have a dental visit in the last 12 months?: Yes Did you have a dental problem in the last 6 months where you did not have access to dental care?: No Was dental information given to patient?: Patient has dentist HPI 4m follow up, sob, anxiety HPI Details Pt reports intermittent shortness of breath while golfing. He reports not having this in a while. Pt is very anxious and reports that lorazepam helps the shortness of breath, but not always. He describes frequent palpitations, that come and go. Denies any chest pain, dizziness, or headache. Hx of afib, seeing cardiology. EKG shows pt is now in a-flutter. Sending pt to ER, report called in. NOTE: awaiting results of recent sleep study PFSH Family History Maternal Grandmother Mental health disorder Social History (Updated 05/10/23 @ 14:17 by Marya Singh) Housing: Condominium Alcohol intake: current Alcohol intake frequency: 0-2 drinks per day Alcohol type: beer, wine and hard liquor Patient Tobacco Use Status: Never used Tobacco e-Cigarette/Vaping Use: Never Used service: No Current occupational status: employed Current occupation: [employer] Current occupational exposures/hazards: No Cognitive needs: No Hearing needs: No Vision needs: No Questionnaire Thrive Questionnaire Date Thrive assessed: 03/06/23 ESTHELA-7 AMB Questionnaire ESTHELA-7 Date ESTHELA - 7 assessed: 03/06/23 Source: Developed by Drs. Luis Chaudhry, Fani Maldonado, Peter Pineda and colleagues, with an educational mahesh from [employer]. Review of Systems Const Reports as per HPI Physical exam (Primary Care) Vital Signs: Last Vital Signs Pulse 76 07/05/23 15:47 BP 98/60 07/05/23 15:47 Pulse Ox 95 07/05/23 15:47 Oxygen Delivery Method Room Air 07/05/23 15:47 BMI result Body Mass Index 32.5 Tobacco/Smoking Status: Tobacco use Status Tobacco use date assessed 07/05/23 07/05/23 15:58 Patient Tobacco Use Status Never used Tobacco 07/05/23 15:51 e-Cigarette/Vaping Use Never Used 07/05/23 15:51 Thrive Assessment: Date of Thrive Assessment Date Thrive assessed 03/06/23 07/05/23 15:51 Const General: cooperative Nutritional Appearance: obese Orientation/consciousness: patient oriented x3 Resp Effort & Inspection: normal respiratory effort Auscultation: clear to auscultation bilaterally Cardio Other: a-flutter Rate: tachycardic Neuro General: patient oriented x3 Psych Appearance: grossly normal Mental Status: mental status grossly normal Speech and movement: Normal speech and movement present Affect: normal affect Attitude: cooperative Thought process: Normal thought process present Thought content: Normal thought content present Insight: Good insight present (Psych) Judgement: Good judgement present (Psych) Assessment and Plan Assessment & Plan (1) Palpitations: Code(s): R00.2 - Palpitations (2) Anxiety: Code(s): F41.9 - Anxiety disorder, unspecified (3) Atrial flutter: Code(s): I48.92 - Unspecified atrial flutter Plan The patient agreed to the use of a veterinary medical officer for this encounter. Scribed for CLARY Buckley by Rosina Mosquera veterinary medical officer, on 07/05/2023 at 16:00 EST. Coding Level of Care Code Est Pt Level 3 (72500) Diagnoses Palpitations R00.2 Anxiety F41.9 Atrial flutter I48.92
== END 2023-07-05 17:02 | disposition home or self-care (01) ==
PROVIDERS: Visit Provider Nurse Practitioner Family
DX: R00.2 Palpitations (principal); F41.9 Anxiety disorder, unspecified; I48.92 Unspecified atrial flutter
CPT/HCPCS: 99213

== ENCOUNTER 2023-07-05 17:15 | Emergency (ER) | payer OTHER, SELFPAY ==
--- NOTE | ~2023-07-05 | XR_ITS ---
EXAMINATION: XR CHEST CLINICAL INFORMATION: Shortness of breath. COMPARISON: 01/22/2023. TECHNIQUE: 2 views of the chest were obtained. FINDINGS: The cardiomediastinal silhouette is stable. Minimal lingular scarring is again seen. There is no focal lung consolidation or pleural effusion. The bony structures and soft tissues are unremarkable. XR/XR chest 2V IMPRESSION: No active cardiopulmonary disease.
--- NOTE | 2023-07-05 17:17 | ED.GENADULT ---
HPI - General Adult General Chief complaint: Arrhythmia/Palpitations Stated complaint: abnormal ekg Time Seen by Provider: 07/05/23 17:59 Source: patient and family Mode of arrival: ambulatory Limitations: no limitations History of Present Illness HPI narrative: 58-year-old male with history of atrial fibrillation, sleep apnea presents with atrial fibrillation/atrial flutter with rapid ventricular response. Patient was meeting his new primary care provider and he was noted to have a heart rate of 150. EKG was performed and demonstrated atrial flutter with variable response. When patient has the symptoms, he notes that he feels ?cruddy. ? The symptoms include lightheadedness and shortness of breath. Patient reports feeling that way approximately 50% the time. He does note that he tends to be in that rhythm when he feels poorly. It is affecting his quality of life. Therefore, he describes the symptoms as moderate to severe in nature. He denies any chest pain. Sometimes he will take an extra dose of 1 of his cardiac medications. He was seen approximately 6 weeks oboe by Cardiology who had out of diltiaze. He was on blood thinning medications. Patient denies any recent fevers, chills, cough, mucus production. Denies any nausea, vomiting, diarrhea. Denies any concerns for dehydration. Related Data Home Medications Medication Instructions Recorded Confirmed omeprazole 20 mg tablet,delayed 20 mg PO DAILY PRN 03/06/23 05/10/23 release Previous Rx's Medication Instructions Recorded losartan 100 mg tablet 100 mg PO DAILY #90 tabs 03/23/23 apixaban 5 mg tablet (Eliquis) 5 mg PO BID 30 days #60 tabs 04/19/23 diltiazem HCl 120 mg 120 mg PO DAILY #90 caps 05/10/23 capsule,extended release 24 hr lorazepam 1 mg tablet 1 mg PO DAILY PRN anxiety 30 days 05/14/23 #30 tabs metoprolol succinate 50 mg 50 mg PO DAILY #30 tabs 07/05/23 tablet,extended release 24 hr Allergies Allergy/AdvReac Type Severity Reaction Status Date / Time erythromycin base Allergy hives Verified 07/05/23 17:18 Review of Systems Review of Systems: CONSTITUTIONAL: Denies weight loss, fever and chills. HEENT: Denies changes in vision and hearing. RESPIRATORY: + SOB - cough. CV: Denies palpitations no CP. GI: Denies abdominal pain, nausea, vomiting and diarrhea. : Denies dysuria and urinary frequency. MSK: Denies myalgia and joint pain. SKIN: Denies rash and pruritus. NEUROLOGICAL: Denies headache and syncope. PSYCHIATRIC: Denies recent changes in mood. Denies anxiety and depression. All other ROS are negative unless in HPI [facility] Family History Family History Maternal Grandmother Mental health disorder Social History Social History Housing: [facility] [place] Alcohol intake: current Alcohol intake frequency: 0-2 drinks per day Alcohol type: beer, wine and hard liquor Patient Tobacco Use Status: Never used Tobacco e-Cigarette/Vaping Use: Never Used Advance Directives: No Advance Directives Information Provided: Yes service: No Current occupational status: employed Current occupation: [employer] Current occupational exposures/hazards: No Cognitive needs: No Hearing needs: No Vision needs: No Physical Exam ED Vital Signs: Vital Signs - 24 hr 07/05/23 17:19 Temperature 98 F Pulse Rate 94 Respiratory Rate 19 Blood Pressure 138/93 H Pulse Oximetry 98 Oxygen Delivery Method Room Air BMI result Body Mass Index 32.5 GEN: Well developed, no acute distress, alert, oriented HEENT: Normocephalic, atraumatic, normal external ears, nose appears normal, no oropharyngeal edema or exudates Eyes: Normal to appearance Neck: Supple, no lymphadenopathy Respiratory: Talks in complete sentences, no respiratory distress, clear to auscultation bilaterally Cardiovascular: Irregularly irregular rhythm, no murmurs rubs or gallops Abdomen: Soft, nontender, nondistended, no guarding, no rebound Back: No CVA tenderness Extremities: No clubbing cyanosis or edema Neurologic: No focal neurologic deficits, cranial nerves 2-12 intact, strength is 5/5 bilaterally Skin: No rash Course Course Course Narrative: RME- 58 year old male presents for evaluation of shortness of breath. He presents from outpatient office for a flutter. Pre- hospital HR was 124. Plan for ekg, labs chest x-ray. He is anticoagulated on Eliquis due to a fib. Maintained on Cardizem Reevaluation(s) Reevaluation #1: The workup is complete. Reviewed laboratory analysis with the patient. I contacted the patient's commercial collections driver. We will increase his metoprolol to 50 mg daily from 25 mg. He will continue with his usual Cardizem dose. He will continue anticoagulation. He will return for any worsening concerning symptoms. Time: 18:44 Medical Decision Making Medical Decision Making [facility] Narrative: 58-year-old male with paroxysmal atrial fibrillation presents with atrial fibrillation with rapid ventricular response. Differential diagnosis includes atrial fib, a flutter, SVT V-tach, VFib. Patient is significantly symptomatic. Will place patient on a quality assurance monitor final, try check routine laboratory analysis, consider intravenous doses of rate control medications. Will contact patient's commercial collections driver. Will determine if patient needs to be admitted for rate control versus rhythm control Differential Diagnosis Differential Diagnoses: The differential diagnosis associated with the presentation includes (See above) Admission/Observation Consideration of admission/observation: Escalation of care including admission/observation considered Consult Healthcare Provider Management of the patient was discussed with: Laboratory Coordinator (Sap Bi Developer) Lab Data [facility] Lab Attestation statement: I reviewed the patient's lab results. 07/05/23 17:34 07/05/23 17:34 Labs: Lab Results 07/05/23 07/05/23 07/05/23 Range/Units 17:34 17:34 17:34 WBC 6.9 (4.8-10.8) X10*3/uL RBC 5.09 (4.60-5.80) X10*6/uL Hgb 17.3 (14.0-18.0) g/dl Hct 47.8 (42.0-52.0) % MCV 93.9 (80.0-98.0) fL MCH 34.0 H (27.0-33.0) pg MCHC 36.2 H (31.0-36.0) g/dl RDW 11.9 (11.0-16.0) % Plt Count 183 (160-400) X10*3/uL MPV 9.4 (9.4-12.4) fL Immature Gran % (Auto) 0.6 H (0.0-0.4) % Neut % (Auto) 76.3 H (45-73) % Lymph % (Auto) 12.6 L (20-40) % [place] % (Auto) 9.4 (2-11) % Eos % (Auto) 0.4 (0-4) % Baso % (Auto) 0.7 (0-2) % Lymph # (Auto) 0.9 L (1.2-4.9) X10*3/uL [place] # (Auto) 0.7 (0.1-1.2) X10*3/uL Eos # (Auto) 0.0 (0.0-0.4) X10*3/uL Baso # (Auto) 0.1 (0.0-0.2) X10*3/uL Abs Immat Gran (auto) 0.04 H (0.00-0.03) X10*3/uL Absolute Neuts (auto) 5.3 (2.0-8.3) x10*3/uL Absolute Nucleated RBC 0.000 (0.0-0.012) X10*3/uL Nucleated RBC % (auto) 0.0 (0.0-0.2) /100WBC PT 13.4 H (11.1-13.3) SEC INR 1.1 (0.9-1.1) APTT 33.4 (26.0-36.4) SEC Sodium 139 (135-145) mmol/L Potassium 4.5 (3.3-5.1) mmol/L Chloride 105 (96-108) mmol/L Carbon Dioxide 22 (22-29) mmol/L Anion Gap 17 (12-20) BUN 9 (9-16) mg/dL Creatinine 1.06 (0.5-1.4) mg/dL Estim Creat Clear Calc 103.6 Estimated GFR > 60 Random Glucose 110 (60-115) mg/dL Calcium 9.8 (8.4-10.2) mg/dL Magnesium 1.9 (1.6-2.6) mg/dL Total Bilirubin 1.7 H (0.0-1.0) mg/dL AST 76 H (5-37) U/L ALT 80 H (0-40) U/L Alkaline Phosphatase 48 (39-117) U/L Troponin I High Sens (<3.5-35.0) ng/L B-Natriuretic Peptide (<100) pg/mL Total Protein 7.2 (6.5-8.0) g/dL Albumin 4.3 (3.5-5.0) g/dL Lipase 28 (8-78) U/L 07/05/23 07/05/23 Range/Units 17:34 17:34 WBC (4.8-10.8) X10*3/uL RBC (4.60-5.80) X10*6/uL Hgb (14.0-18.0) g/dl Hct (42.0-52.0) % MCV (80.0-98.0) fL MCH (27.0-33.0) pg MCHC (31.0-36.0) g/dl RDW (11.0-16.0) % Plt Count (160-400) X10*3/uL MPV (9.4-12.4) fL Immature Gran % (Auto) (0.0-0.4) % Neut % (Auto) (45-73) % Lymph % (Auto) (20-40) % [place] % (Auto) (2-11) % Eos % (Auto) (0-4) % Baso % (Auto) (0-2) % Lymph # (Auto) (1.2-4.9) X10*3/uL [place] # (Auto) (0.1-1.2) X10*3/uL Eos # (Auto) (0.0-0.4) X10*3/uL Baso # (Auto) (0.0-0.2) X10*3/uL Abs Immat Gran (auto) (0.00-0.03) X10*3/uL Absolute Neuts (auto) (2.0-8.3) x10*3/uL Absolute Nucleated RBC (0.0-0.012) X10*3/uL Nucleated RBC % (auto) (0.0-0.2) /100WBC PT (11.1-13.3) SEC INR (0.9-1.1) APTT (26.0-36.4) SEC Sodium (135-145) mmol/L Potassium (3.3-5.1) mmol/L Chloride (96-108) mmol/L Carbon Dioxide (22-29) mmol/L Anion Gap (12-20) BUN (9-16) mg/dL Creatinine (0.5-1.4) mg/dL Estim Creat Clear Calc Estimated GFR Random Glucose (60-115) mg/dL Calcium (8.4-10.2) mg/dL Magnesium (1.6-2.6) mg/dL Total Bilirubin (0.0-1.0) mg/dL AST (5-37) U/L ALT (0-40) U/L Alkaline Phosphatase (39-117) U/L Troponin I High Sens 4.1 (<3.5-35.0) ng/L B-Natriuretic Peptide 77 (<100) pg/mL Total Protein (6.5-8.0) g/dL Albumin (3.5-5.0) g/dL Lipase (8-78) U/L Independent Interpretation I performed an independent interpretation of an: EKG (Atrial flutter with a heart rate of 106, no acute ST elevations or depressions) and Plain X-Ray (Chest: No acute cardiopulmonary disease) Independent Historian Clinical information obtained from an independent historian. History obtained from or confirmed by: Spouse External Record Review External record reviewed: Office record and Other Prescription Management I considered prescription management with: Other (Cardiac medication) Chronic Conditions Patient?s care impacted by: Other (Atrial fibrillation, sleep apnea) Discharge Plan Discharge Clinical Impression: Atrial fibrillation Patient Disposition: Home, Self-Care Instructions: A-fib (Atrial Fibrillation) (ED), Blood Thinners (ED) Additional Instructions: We are recommending that you increased her metoprolol from 25 mg daily to 50 mg daily. Prescriptions: New metoprolol succinate 50 mg tablet extended release 24 hr 50 mg PO DAILY Qty: 30 0RF Discontinued metoprolol succinate 25 mg tablet extended release 24 hr 25 mg PO DAILY 30 Days Qty: 30 3RF No Action losartan 100 mg tablet 100 mg PO DAILY Qty: 90 1RF Eliquis 5 mg tablet 5 mg PO BID 30 Days Qty: 60 2RF lorazepam 1 mg tablet 1 mg PO DAILY PRN (Reason: anxiety) 30 Days Qty: 30 1RF omeprazole 20 mg tablet,delayed release (DR/EC) 20 mg PO DAILY PRN diltiazem HCl 120 mg capsule,extended release 24hr 120 mg PO DAILY Qty: 90 3RF Referrals: Augustus Peraza MD [Physician] - 1 week
--- NOTE | 2023-07-05 17:18 | ECG_ITS ---
Test Reason : PAIN Blood Pressure : / mmHG Vent. Rate : 106 BPM Atrial Rate : 000 BPM P-R Int : 000 ms QRS Dur : 082 ms QT Int : 320 ms P-R-T Axes : 000 003 025 degrees QTc Int : 425 ms Atrial fibrillation with rapid ventricular response Abnormal ECG No previous ECGs available Referred By: Shawn Streeter Electronically Signed By:JERONIMO LARA
[2023-07-05 17:19] VITALS: BP 138/93; PULSE 94; RESP 19; TEMP 36.6; O2SAT 98; BMI 32.5
[2023-07-05 17:39] LABS: MANUAL DIFF FLAG NO
[2023-07-05 17:41] LABS: Basophils Absolute Auto 0.1 X10*3/uL (0.0-0.2); Basophils Percent Auto 0.7 % (0-2); Eosinophils Percent Auto 0.4 % (0-4); Hematocrit 47.8 % (42.0-52.0); Hemoglobin 17.3 g/dl (14.0-18.0); Imm Gran Abs Auto 0.04 X10*3/uL (0.00-0.03); Imm Gran Pct Auto 0.6 % (0.0-0.4); Lymphocytes Absolute Auto 0.9 X10*3/uL (1.2-4.9); Lymphocytes Percent Auto 12.6 % (20-40); Mean Corpuscular HGB Conc 36.2 g/dl (31.0-36.0); Mean Corpuscular Volume 93.9 fL (80.0-98.0); Mean Platelet Volume 9.4 fL (9.4-12.4); Monocytes Absolute Auto 0.7 X10*3/uL (0.1-1.2); Monocytes Percent Auto 9.4 % (2-11); Neutrophils Absolute Auto 5.3 x10*3/uL (2.0-8.3); Neutrophils Percent Auto 76.3 % (45-73); Platelet Count 183 X10*3/uL (160-400); Red Blood Count 5.09 X10*6/uL (4.60-5.80); Red Cell Distribution Width 11.9 % (11.0-16.0); White Blood Count 6.9 X10*3/uL (4.8-10.8)
[2023-07-05 17:56] LABS: Alanine Aminotransferase 80 U/L (0-40); Albumin Level 4.3 g/dL (3.5-5.0); Alkaline Phosphatase 48 U/L (39-117); Anion Gap 17 (12-20); Aspartate Amino Transferase 76 U/L (5-37); Bilirubin Total 1.7 mg/dL (0.0-1.0); Blood Urea Nitrogen 9 mg/dL (9-16); Calcium 9.8 mg/dL (8.4-10.2); Carbon Dioxide 22 mmol/L (22-29); Chloride 105 mmol/L (96-108); Creatinine Clr Calc Pharmacy 103.6; Estimated Glomerular Filt Rate > 60; Glucose Random 110 mg/dL (60-115); Lipase 28 U/L (8-78); Magnesium 1.9 mg/dL (1.6-2.6); Potassium 4.5 mmol/L (3.3-5.1); Sodium 139 mmol/L (135-145); Total Protein 7.2 g/dL (6.5-8.0)
[2023-07-05 17:58] LABS: INTERNATIONAL NORM RATIO 1.1 (0.9-1.1); Prothrombin Time 13.4 SEC (11.1-13.3)
[2023-07-05 18:00] LABS: Partial Thromboplastin Time 33.4 SEC (26.0-36.4)
[2023-07-05 18:01] LABS: B Type Natriuretic Peptide 77 pg/mL (<100)
[2023-07-05 18:03] LABS: Troponin-I High Sensitivity 4.1 ng/L (<3.5-35.0)
[2023-07-05] MEDS: Metoprolol Tartrate 25 MG TABLET PO (18:47)
== END 2023-07-05 19:05 | disposition home or self-care (01) ==
PROVIDERS: Physician Assistant; Emergency Provider Emergency Medicine; PCP Nurse Practitioner Family
DX: I48.20 Chronic atrial fibrillation, unspecified (principal); I48.0 Paroxysmal atrial fibrillation; R06.02 Shortness of breath; I10 Essential (primary) hypertension; E78.5 Hyperlipidemia, unspecified; Z79.01 Long term (current) use of anticoagulants
CPT/HCPCS: 36415; 71046; 80053; 83690; 83735; 83880; 84484; 85025; 85610; 85730; 93005; 99283

== ENCOUNTER → 2023-07-23 15:11 | Outpatient (REF) | payer OTHER, SELFPAY ==
--- NOTE | 2023-07-23 15:14 | HM_ITS ---
* Total monitoring time 3 days. * Underlying rhythm is sinus as well as atrial fibrillation. Atrial fibrillation burden 52%. Longest run 12 hours. Fastest 154/Min. * While in sinus, average ventricular rate 76/Min. * Rare supraventricular ectopy. * No significant pauses or AV blocks. * Shortness of breath and diarrhea associated with atrial fibrillation but sometimes also with sinus rhythm. MTDD
== END ==
LOC: HO.CARD 15:11
PROVIDERS: PCP Nurse Practitioner Family; Visit Provider Internal Medicine
DX: I48.91 Unspecified atrial fibrillation (principal)
CPT/HCPCS: 93242

== ENCOUNTER → 2023-07-23 15:14 | Outpatient (BNV) | payer OTHER, SELFPAY | PROVIDERS: PCP Nurse Practitioner Family; Visit Provider Internal Medicine | DX: I48.91 Unspecified atrial fibrillation (principal) | CPT/HCPCS: 93244 ==

== ENCOUNTER 2023-07-30 14:38 | Outpatient (REF) | payer OTHER, SELFPAY ==
--- NOTE | 2023-07-30 15:34 | PFT_ITS ---
FLOWS: 1. FEV1 77% of predicted at 3.25 L. 2. FVC 90% of predicted at 5.01 L. 3. FEV1 to FVC ratio of 0.65. 4. No bronchodilator response. LUNG VOLUMES: 1. Total lung capacity 85% of predicted at 6.61 L. 2. Residual volume 90% of predicted at 2.19 L. 3. Slow vital capacity 82% of predicted at 4.42 L. 4. Expiratory reserve volume 37% of predicted at 0.64 L. 5. Diffusion capacity is normal. IMPRESSION: Moderate obstructive ventilatory defect with no bronchodilator response. Zeke Mcfarland MD AP/MODL / [id number]
== END 2023-07-30 14:39 | disposition home or self-care (01) ==
LOC: HO.RESP 14:38
PROVIDERS: PCP Nurse Practitioner Family; Visit Provider Nurse Practitioner Family
DX: R06.02 Shortness of breath (principal)
CPT/HCPCS: 94010; 94727; 94729

== ENCOUNTER → 2023-07-30 15:34 | Outpatient (BNV) | payer OTHER, SELFPAY | PROVIDERS: PCP Nurse Practitioner Family; Visit Provider Internal Medicine Pulmonary Disease | DX: R06.02 Shortness of breath (principal) | CPT/HCPCS: 94060; 94727; 94729 ==

== ENCOUNTER 2023-07-31 15:29 | Outpatient (AMB) | payer OTHER, SELFPAY ==
--- NOTE | 2023-07-31 15:33 | MHC.OFFVIS ---
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 Allergies erythromycin base Allergy (Verified 07/31/23 15:39) hives Medication List - Last Reconciled 07/31/23 by Blanca Reid NP-C apixaban (Eliquis) 5 mg PO BID 30 days diltiazem HCl 120 mg PO DAILY lorazepam 1 mg PO DAILY PRN 30 days losartan 100 mg PO DAILY metoprolol succinate ER 50 mg PO DAILY ondansetron 8 mg PO Q12H PRN 10 days HPI [facility] follow up/ holter follow up HPI Details Zenon is a 58-year-old male with past medical history of hypertension, hyperlipidemia, obesity, newer heart palpitations with finding of paroxysmal atrial fibrillation which is being treated with heart rate control. Recent Holter monitor done any now presents for follow-up. Today he reports that he can tell when he is in AFib. He feels the heart palpitation, some weakness and shortness of breath. He has been having to adjust his activities accordingly. He denies any discomfort in the chest area, no PND, orthopnea or edema. No presyncope, syncope, falls. He has been playing golf a lot recently and notices that when he is a in AFib he has a much more difficult time. He was in the ER with AFib RVR on 07/05/2023 and his metoprolol dose was increased. Since that time he says he has been feeling just a little bit better however continues to have symptoms. He is very concerned about this AFib diagnosis and would like it better controlled. He has been taking his anticoagulation without interruption. He admits to drinking alcoholic beverages daily. 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 He has been diagnosed with sleep apnea but has not received his CPAP mask as of yet. [facility] Family History Maternal Grandmother Mental health disorder Social History Housing: Condominium Alcohol intake: current Alcohol intake frequency: 0-2 drinks per day Alcohol type: beer, wine and hard liquor Patient Tobacco Use Status: Never used Tobacco e-Cigarette/Vaping Use: Never Used service: No Current occupational status: employed Current occupation: [employer] Current occupational exposures/hazards: No Cognitive needs: No Hearing needs: No Vision needs: No Review of Systems Const All systems reviewed & are unremarkable except as noted in HPI and below ENT Denies dizziness Card Denies chest pain, Denies chest pain at rest, Denies chest pain with activity, Reports rapid heart rate, Denies pedal edema, Denies edema, Denies leg edema, Denies lightheadedness, Reports palpitations, Denies dyspnea, Reports dyspnea on exertion and Denies orthopnea Resp Denies cough, Denies dyspnea and Reports dyspnea on exertion GI Denies hematochezia and Denies change in stool character Musc Denies abnormal gait, Reports limited range of motion, Reports muscle cramps, Denies muscle weakness, Denies numbness, Denies radiating pain into limb, Denies stiffness and Denies tingling Neuro Denies abnormal gait, Denies dizziness, Denies numbness and Denies tingling Endo Reports palpitations Physical Exam Vital Signs: Last Vital Signs Pulse 87 07/31/23 15:34 BP 120/82 07/31/23 15:34 BMI result Body Mass Index 33.5 Const General: cooperative, healthy appearing, comfortable and no acute distress Orientation/consciousness: patient oriented x3 Neck Neck: Yes normal visual inspection Resp Effort & Inspection: normal respiratory effort Auscultation: clear to auscultation bilaterally, no crackles, no rales, no rhonchi and no wheezes Cardio Jugular venous distension: no JVD Rate: regular rate Rhythm: regular rhythm Heart sounds: S1 normal heart sound present, S2 normal heart sound present, no gallops, no murmurs and no rubs Neuro General: patient oriented x3 Extrem General: Yes normal to inspection Psych Appearance: grossly normal Mental Status: mental status grossly normal Speech and movement: Normal speech and movement present Assessment & Plan Assessment & Plan (1) New onset a-fib: Code(s): I48.91 - Unspecified atrial fibrillation Plan: Newer finding of atrial fibrillation, paroxysmal. A recent echocardiogram showed EF 55-60%. Nuclear stress test was normal. Patient is able to feel the heart palpitations and some increased shortness of breath with AFib. He is currently on metoprolol XL 50 mg daily and diltiazem CD 120 mg daily. He is on Eliquis for anticoagulation and reports compliance with his meds. A Holter monitor was done on 07/23/2023 for 3 days showing sinus rhythm with average heart rate 76, atrial fibrillation 52% of the time with fastest heart rate 154. He continues to drink alcohol daily. He is in need of weight loss. He has a newer diagnosis of moderate obstructive sleep apnea and is in need of CPAP. Will reach out to sleep medicine regarding his CPAP. He states it was ordered 3 weeks ago and he has not heard anything yet. Reviewed the need for alcohol cessation/reduction. He is aware of the need for weight loss but states that he is not able to exercise routinely with his atrial fibrillation. At time of this visit he is in sinus rhythm, heart tones regular, rate 87. Will plan to review medication management with Dr. 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 Patient may require anti arrhythmic to help suppress AFib. (2) Sleep apnea: Comment: Moderate degree of sleep apnea. The AHI was 22/hr and oxygen ros was 78% Code(s): G47.30 - Sleep apnea, unspecified Plan: As above. (3) Palpitations: Code(s): R00.2 - Palpitations (4) SOB (shortness of breath): Code(s): R06.02 - Shortness of breath (5) Excessive drinking alcohol: Code(s): F10.10 - Alcohol abuse, uncomplicated Plan: Daily alcohol use. Works as a buffet manager. Informed that alcohol can increase the incidence of atrial fibrillation. Recommended cessation/reduction Orders: Referrals Sleep Medicine Referral G47.30 - Sleep apnea, unspecified Coding Level of Care Code Est Pt Level 4 (29312) Diagnoses New onset a-fib I48.91 Sleep apnea G47.30 Palpitations R00.2 SOB (shortness of breath) R06.02 Excessive drinking alcohol F10.10 Time Spent (min) 30
[2023-07-31 15:34] VITALS: BP 120/82; PULSE 87; BMI 33.5
== END 2023-07-31 16:13 | disposition home or self-care (01) ==
PROVIDERS: PCP Nurse Practitioner Family; Visit Provider Nurse Practitioner Family
DX: I48.91 Unspecified atrial fibrillation (principal); G47.30 Sleep apnea, unspecified; R00.2 Palpitations; R06.02 Shortness of breath; F10.10 Alcohol abuse, uncomplicated
CPT/HCPCS: 99214

== ENCOUNTER → 2023-07-31 15:29 | Outpatient (BNVA) | payer OTHER, SELFPAY | PROVIDERS: PCP Nurse Practitioner Family; Visit Provider Nurse Practitioner Family | DX: I48.19 Other persistent atrial fibrillation (principal); R00.2 Palpitations; R06.02 Shortness of breath; G47.30 Sleep apnea, unspecified; F10.10 Alcohol abuse, uncomplicated; Z79.01 Long term (current) use of anticoagulants | CPT/HCPCS: 99212 ==

== ENCOUNTER 2023-09-20 15:00 | Outpatient (AMB) | payer OTHER, SELFPAY ==
[2023-09-20 15:02] VITALS: BP 124/82; PULSE 67; O2SAT 96; BMI 32.8
--- NOTE | 2023-09-20 15:02 | MHC.OFFVIS ---
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 His PFT showed underlying moderate obstructive ventilatory defect with no bronchodilator response. Patient denies any pulmonary related concerns or complaints, particularly dyspnea on exertion. He has also been recently diagnosed with AFib and now on rate control. PFSH Family History Maternal Grandmother Mental health disorder [facility] Alcohol intake: current Alcohol intake frequency: 0-2 drinks per day Alcohol type: beer, wine and hard liquor Patient Tobacco Use Status: Never used Tobacco e-Cigarette/Vaping Use: Never Used service: No Current occupational status: employed Current occupation: [employer] Current occupational exposures/hazards: No Cognitive needs: No Hearing needs: No Vision needs: No Review of Systems Const Denies daytime sleepiness, Denies excessive sweating, Denies fatigue, Denies fever(s), Denies lethargy, Denies malaise, Denies night sweats, Denies snoring and Denies weight loss Eyes Denies blurry vision and Denies itchy eyes ENT Denies nasal congestion, Denies post nasal drip, Denies sinus pain, Denies sinus pressure and Denies other ( Thrush) Card Denies chest pain, Denies pedal edema, Denies dyspnea, Denies orthopnea and Denies paroxysmal nocturnal dyspnea Resp Denies cough, Denies hemoptysis, Denies excessive phlegm production, Denies dyspnea, Denies snoring and Denies wheezing GI Denies abdominal pain and Denies heartburn Musc Denies myalgias, Denies arthralgias and Denies joint swelling Skin/Breast Denies rash Neuro Denies memory loss and Denies seizure-like activity Psych Denies abnormal sleep pattern, Denies anxiety and Denies memory loss Endo Denies excessive sweating, Denies fatigue and Denies heat intolerance Jerzy/Lymph Denies easy bruising Aller/Immun Denies itchy eyes, Denies seasonal rhinorrhea and Denies wheezing Physical Exam Vital Signs: Last Vital Signs Pulse 67 09/20/23 15:02 BP 124/82 09/20/23 15:02 Pulse Ox 96 09/20/23 15:02 Oxygen Delivery Method Room Air 09/20/23 15:02 BMI result Body Mass Index 32.8 Const General: no acute distress and alert Nutritional Appearance: not obese Orientation/consciousness: Other orientation findings ( oriented) HEENT Head: Yes atraumatic Eyes General: appearance normal, both eyes and all related structures Sclerae: sclerae normal EOM: EOMs intact bilaterally Neck Neck: Yes supple Lymphatic: no lymphadenopathy noted Resp Effort & Inspection: normal respiratory effort and no use of accessory muscles Auscultation: clear to auscultation bilaterally Cardio Rate: regular rate Rhythm: regular rhythm Heart sounds: no gallops, no murmurs and no rubs Skin General skin exam: other ( warm) Extrem General: No clubbing, No cyanosis and No edema Assessment & Plan Assessment & Plan (1) COPD (chronic obstructive pulmonary disease): Code(s): J44.9 - Chronic obstructive pulmonary disease, unspecified Plan: Pulmonary function test reviewed. Underlying COPD of unclear symptomatology. Will start on empiric Incruse. (2) Pulmonary nodules: Code(s): R91.8 - Other nonspecific abnormal finding of lung field Plan: Will obtain CT chest for evaluation of lung parenchyma. Orders: Orders CT chest wo IV con Today R91.8 - Other nonspecific abnormal finding of lung field Medications: New umeclidinium 62.5 mcg/actuation (Incruse Ellipta) 1 inh inhalation DAILY 1 ea 6RF 30 days J44.9 - Chronic obstructive pulmonary disease, unspecified Coding Level of Care Code New Pt Level 4 (34328) Diagnoses COPD (chronic obstructive pulmonary disease) J44.9 Pulmonary nodules R91.8
== END 2023-09-20 15:28 | disposition home or self-care (01) ==
PROVIDERS: PCP Nurse Practitioner Family; Referring Provider Nurse Practitioner Family; Visit Provider Internal Medicine Pulmonary Disease
DX: J44.9 Chronic obstructive pulmonary disease, unspecified (principal); R91.8 Other nonspecific abnormal finding of lung field
CPT/HCPCS: 99214

== ENCOUNTER → 2023-09-20 15:00 | Outpatient (BNVA) | payer OTHER, SELFPAY | PROVIDERS: PCP Nurse Practitioner Family; Referring Provider Nurse Practitioner Family; Visit Provider Internal Medicine Pulmonary Disease | DX: R91.8 Other nonspecific abnormal finding of lung field (principal); J44.9 Chronic obstructive pulmonary disease, unspecified | CPT/HCPCS: 99212 ==

== ENCOUNTER 2023-09-27 13:06 | Outpatient (AMB) | payer OTHER, SELFPAY ==
[2023-09-27 13:16] VITALS: BP 120/80; PULSE 70; BMI 32.5
--- NOTE | 2023-09-27 13:16 | A.OFFVIS_ITS ---
Intake Vital Signs 09/27/23 13:16 Height 6 ft 2 in Weight 253 lb 8.505 oz BMI 32.5 BP 120/80 Blood Pressure Location Lt brachial Position Sitting Pulse 70 Pulse Source Pulse Oximeter Intake Visit Reasons: f/u after testing Allergies erythromycin base Allergy (Verified 09/20/23 15:07) hives Medication List - Last Reconciled 09/27/23 by Teena Ravi NP apixaban (Eliquis) 5 mg PO BID 30 days cholecalciferol (vitamin D3) 1,250 mcg PO QWEEK diltiazem HCl 120 mg PO DAILY lorazepam 1 mg PO DAILY PRN 30 days metoprolol tartrate 50 mg orally 100mg in AM and 50mg in PM; milk thistle 150 mg PO BID omeprazole 20 mg PO DAILY ondansetron 8 mg PO Q12H PRN 10 days umeclidinium 62.5 mcg/actuation (Incruse Ellipta) 1 inh inhalation DAILY 30 days HPI HPI Comments History of Present Illness Details 58-year-old male presents today for a fo llow-up. He has a history of hypertesion, hyperlipidemia, PAD, and sleep apnea. He reports he has been doing well other than high stress and anxiety. Denies any chest pain, shortness of breath, swelling, syncope, or bleeding. He states he has just started using his CPAP this week and has already noticed a difference. He reports overall less atrial fibrillation episodes. Reports doing well on the medications. States he has been doing 100mg of metoprolol in the morning and 50mg in the evening due to having lower blood pressures in the evening. [facility] Family History Maternal Grandmother Mental health disorder Social History Housing: Condominium Alcohol intake: current Alcohol intake frequency: 0-2 drinks per day Alcohol type: beer, wine and hard liquor Patient Tobacco Use Status: Never used Tobacco e-Cigarette/Vaping Use: Never Used service: No Current occupational status: employed Current occupation: [employer] Current occupational exposures/hazards: No Cognitive needs: No Hearing needs: No Vision needs: No Review of Systems Const Denies chills, Denies fatigue, Denies fever(s), Denies frequent falls, Denies weakness, Denies weight gain and Denies weight loss ENT Denies dizziness Card Denies chest pain, Denies chest pain with activity, Denies syncope, Denies rapid heart rate, Denies pedal edema, Denies irregular heart rhythm, Denies leg edema, Denies lightheadedness, Denies palpitations, Denies dyspnea, Denies dyspnea on exertion, Denies orthopnea and Denies other (LOC) Resp Denies cough, Denies dyspnea and Denies dyspnea on exertion GI Denies hematochezia and Denies change in bowel habits Musc Denies abnormal gait, Denies arthralgias, Denies muscle weakness, Denies numbness, Denies radiating pain into limb and Denies tingling Neuro Denies abnormal gait, Denies dizziness, Denies syncope, Denies frequent falls, Denies numbness, Denies tingling and Denies weakness Endo Denies fatigue and Denies palpitations Physical Exam Vital Signs: Last Vital Signs Pulse 70 09/27/23 13:16 BP 120/80 09/27/23 13:16 BMI result Body Mass Index 32.5 Const General: healthy appearing and no acute distress Orientation/consciousness: patient oriented x3 HEENT Head: Yes normal to inspection Eyes General: appearance normal, both eyes and all related structures Neck Neck: Yes normal visual inspection Chest Chest palpation & inspection: normal inspection of the chest Resp Effort & Inspection: normal respiratory effort Auscultation: clear to auscultation bilaterally Cardio Jugular venous distension: no JVD Palpation: normal PMI Rate: regular rate Rhythm: regular rhythm Heart sounds: S1 normal heart sound present, S2 normal heart sound present, no click, no gallops, no murmurs and no rubs GI Inspection: Yes normal to inspection Palpation (GI): Soft to palpation Skin General skin exam: no rashes or lesions noted Neuro General: patient oriented x3 Extrem General: Yes normal to inspection Psych Appearance: grossly normal Office Procedures EKG Details: EKG today. Normal Sinus Rhythm. Rate 64bpm. QTc 404ms [id number], Complete Assessment & Plan Assessment & Plan (1) HTN (hypertension): Code(s): I10 - Essential (primary) hypertension Qualifiers: Hypertension type: essential hypertension Qualified Code(s): I10 - Essential (primary) hypertension (2) Atrial fibrillation: Code(s): I48.91 - Unspecified atrial fibrillation (3) Palpitations: Code(s): R00.2 - Palpitations Plan Continue medications as currently prescribed. Monitor blood pressures with medications. Discussed with patient reasons for his medications in detail. Patient reports understanding. Report any new or worsening symptoms. Coding Level of Care Code Est Pt Level 3 (02781) Diagnoses Essential hypertension I10 Hypertension type: essential hypertension Atrial fibrillation I48.91 Palpitations R00.2 CPT Codes EKG - CPT: 46751-[id number], Complete ([id number])
== END 2023-09-27 13:53 | disposition home or self-care (01) ==
PROVIDERS: PCP Nurse Practitioner Family; Visit Provider Nurse Practitioner
DX: I10 Essential (primary) hypertension (principal); I48.91 Unspecified atrial fibrillation; R00.2 Palpitations
CPT/HCPCS: 93010; 99213

== ENCOUNTER → 2023-09-27 13:06 | Outpatient (BNVA) | payer OTHER, SELFPAY | PROVIDERS: PCP Nurse Practitioner Family; Visit Provider Nurse Practitioner | DX: I48.91 Unspecified atrial fibrillation (principal); I10 Essential (primary) hypertension; R00.2 Palpitations | CPT/HCPCS: 93005; 99212 ==

== ENCOUNTER 2023-11-01 13:04 | Outpatient (REF) | payer OTHER, SELFPAY | END 2023-11-01 13:05 | disposition home or self-care (01) | LOC: HO.CT 13:04 | PROVIDERS: PCP Nurse Practitioner Family; Visit Provider Internal Medicine Pulmonary Disease | DX: R91.8 Other nonspecific abnormal finding of lung field (principal) | CPT/HCPCS: 71250 ==

== ENCOUNTER 2023-11-15 14:19 | Outpatient (AMB) | payer OTHER, SELFPAY ==
[2023-11-15 14:21] VITALS: BP 128/82; PULSE 66; O2SAT 97; BMI 32.5
--- NOTE | 2023-11-15 14:21 | MHC.OFFVIS ---
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 At the last office visit patient was started on Incruse with unclear benefit. He denies any acute exacerbations. His CT chest did not demonstrate significant pulmonary nodules or emphysema. PFSH Family History Maternal Grandmother Mental health disorder Social History Housing: Condominium Alcohol intake: current Alcohol intake frequency: 0-2 drinks per day Alcohol type: beer, wine and hard liquor Patient Tobacco Use Status: Never used Tobacco e-Cigarette/Vaping Use: Never Used service: No Current occupational status: employed Current occupation: [employer] Current occupational exposures/hazards: No Cognitive needs: No Hearing needs: No Vision needs: No Review of Systems Const Denies daytime sleepiness, Denies excessive sweating, Denies fatigue, Denies fever(s), Denies lethargy, Denies malaise, Denies night sweats, Denies snoring and Denies weight loss Eyes Denies blurry vision and Denies itchy eyes ENT Denies nasal congestion, Denies post nasal drip, Denies sinus pain, Denies sinus pressure and Denies other ( Thrush) Card Denies chest pain, Denies pedal edema, Denies dyspnea, Reports dyspnea on exertion, Denies orthopnea and Denies paroxysmal nocturnal dyspnea Resp Denies cough, Denies hemoptysis, Denies excessive phlegm production, Denies dyspnea, Reports dyspnea on exertion, Denies snoring and Denies wheezing GI Denies abdominal pain and Denies heartburn Musc Denies myalgias, Denies arthralgias and Denies joint swelling Skin/Breast Denies rash Neuro Denies memory loss and Denies seizure-like activity Psych Denies abnormal sleep pattern, Denies anxiety and Denies memory loss Endo Denies excessive sweating, Denies fatigue and Denies heat intolerance Jerzy/Lymph Denies easy bruising Aller/Immun Denies itchy eyes, Denies seasonal rhinorrhea and Denies wheezing Physical Exam Vital Signs: Last Vital Signs Pulse 66 11/15/23 14:21 BP 128/82 11/15/23 14:21 Pulse Ox 97 11/15/23 14:21 Oxygen Delivery Method Room Air 11/15/23 14:21 BMI result Body Mass Index 32.5 Const General: no acute distress and alert Nutritional Appearance: not obese Orientation/consciousness: Other orientation findings ( oriented) HEENT Head: Yes atraumatic Eyes General: appearance normal, both eyes and all related structures Sclerae: sclerae normal EOM: EOMs intact bilaterally Neck Neck: Yes supple Lymphatic: no lymphadenopathy noted Resp Effort & Inspection: normal respiratory effort and no use of accessory muscles Auscultation: clear to auscultation bilaterally Cardio Rate: regular rate Rhythm: regular rhythm Heart sounds: no gallops, no murmurs and no rubs Skin General skin exam: other ( warm) Extrem General: No clubbing, No cyanosis and No edema Assessment & Plan Assessment & Plan (1) COPD (chronic obstructive pulmonary disease): Code(s): J44.9 - Chronic obstructive pulmonary disease, unspecified Plan: Patient has misplaced his Incruse. Restart Incruse. (2) Pulmonary nodules: Code(s): R91.8 - Other nonspecific abnormal finding of lung field Plan: Results of CT chest reviewed, no worrisome nodules or emphysema at this time. Medications: Refilled umeclidinium 62.5 mcg/actuation (Incruse Ellipta) 1 inh inhalation DAILY 1 ea 6RF 30 days J44.9 - Chronic obstructive pulmonary disease, unspecified Coding Level of Care Code Est Pt Level 4 (93667) Diagnoses COPD (chronic obstructive pulmonary disease) J44.9 Pulmonary nodules R91.8
== END 2023-11-15 14:42 | disposition home or self-care (01) ==
PROVIDERS: PCP Nurse Practitioner Family; Visit Provider Internal Medicine Pulmonary Disease
DX: J44.9 Chronic obstructive pulmonary disease, unspecified (principal); R91.8 Other nonspecific abnormal finding of lung field
CPT/HCPCS: 99214

== ENCOUNTER → 2023-11-15 14:19 | Outpatient (BNVA) | payer OTHER, SELFPAY | PROVIDERS: PCP Nurse Practitioner Family; Visit Provider Internal Medicine Pulmonary Disease | DX: J44.9 Chronic obstructive pulmonary disease, unspecified (principal); R91.8 Other nonspecific abnormal finding of lung field | CPT/HCPCS: 99212 ==

== ENCOUNTER 2024-01-10 14:06 | Outpatient (AMB) | payer OTHER, SELFPAY ==
[2024-01-10 14:08] VITALS: BP 110/70; PULSE 90; BMI 33.6
--- NOTE | 2024-01-10 14:08 | MHC.OFFVIS ---
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 Accompanied by: Self / Same As Patient Allergies erythromycin base Allergy (Verified 11/15/23 14:26) hives Medication List - Last Reconciled 01/10/24 by Augustus Peraza MD apixaban (Eliquis) 5 mg PO BID 30 days cholecalciferol (vitamin D3) 1,250 mcg PO QWEEK diltiazem HCl 120 mg PO DAILY lorazepam 1 mg PO DAILY PRN 30 days metoprolol tartrate 100 mg PO BID milk thistle 150 mg PO BID omeprazole 20 mg PO DAILY ondansetron 8 mg PO Q12H PRN 10 days umeclidinium 62.5 mcg/actuation (Incruse Ellipta) 1 inh inhalation DAILY 30 days HPI HPI Comments History of Present Illness Details Zenon returns for follow-up regarding atrial fibrillation. He states for the most part he is doing okay. Some atrial fibrillation sensations every now and then and he states he can actually say when he is in it or not. He believes he is probably having it around 20% the time from his own assessment. He takes diltiazem as well as metoprolol. He states he does take additional metoprolol doses as necessary according to how he feels. Also on anticoagulation. No other complaints like angina. Unfortunately, he has not been able to lose weight. Alcohol intake is also just about the same as before. Not able to use CPAP. [facility] Medical History JOHNNIE (obstructive sleep apnea) Paroxysmal atrial fibrillation Family History Maternal Grandmother Mental health disorder [facility] Alcohol intake: current Alcohol intake frequency: 0-2 drinks per day Alcohol type: beer, wine and hard liquor Patient Tobacco Use Status: Never used Tobacco e-Cigarette/Vaping Use: Never Used service: No Current occupational status: employed Current occupation: [employer] Current occupational exposures/hazards: No Cognitive needs: No Hearing needs: No Vision needs: No Review of Systems Const Denies chills, Denies fatigue, Denies fever(s), Denies frequent falls, Denies weakness, Denies weight gain and Denies weight loss ENT Denies dizziness Card Denies chest pain, Denies leg edema, Denies lightheadedness, Denies palpitations, Denies dyspnea and Denies dyspnea on exertion Resp Denies cough, Denies dyspnea and Denies dyspnea on exertion GI Denies hematochezia Musc Denies abnormal gait, Denies muscle weakness, Denies numbness, Denies radiating pain into limb and Denies tingling Neuro Denies abnormal gait, Denies dizziness, Denies frequent falls, Denies numbness, Denies tingling and Denies weakness Endo Denies fatigue and Denies palpitations Physical Exam Vital Signs: Last Vital Signs Pulse 90 01/10/24 14:08 BP 110/70 01/10/24 14:08 BMI result Body Mass Index 33.6 Const General: comfortable and no acute distress Orientation/consciousness: patient oriented x3 HEENT Other: Unremarkable Head: Yes normal to inspection Neck Neck: Yes normal visual inspection Chest Chest palpation & inspection: normal inspection of the chest Resp Auscultation: clear to auscultation bilaterally Cardio Palpation: normal PMI Heart sounds: S1 normal heart sound present, S2 normal heart sound present, no gallops, no murmurs and no rubs GI Palpation (GI): Soft to palpation Back/Spine/Pelvis Other: unremarkable Skin General skin exam: no rashes or lesions noted Neuro General: patient oriented x3 Extrem General: Yes normal to inspection Psych Mental Status: mental status grossly normal Assessment & Plan Assessment & Plan (1) Paroxysmal atrial fibrillation: Code(s): I48.0 - Paroxysmal atrial fibrillation (2) HTN (hypertension): Code(s): I10 - Essential (primary) hypertension Qualifiers: Hypertension type: essential hypertension Qualified Code(s): I10 - Essential (primary) hypertension (3) Morbid obesity: Code(s): E66.01 - Morbid (severe) obesity due to excess calories (4) Excessive drinking alcohol: Code(s): F10.10 - Alcohol abuse, uncomplicated (5) JOHNNIE (obstructive sleep apnea): Code(s): G47.33 - Obstructive sleep apnea (adult) (pediatric) Plan Cardiac studies reviewed. In the echocardiogram, LVEF 55-60%. Described to have basal inferior/inferoseptal hypokinesis, but otherwise unremarkable. Normal myocardial perfusion imaging study. Hence above wall motion and finding could be artifactual. In the last Holter, atrial fibrillation was burden was almost 50%. We once again discussed about the pathophysiology of atrial fibrillation extensively including etiology. In his case, combination of morbid obesity, obstructive sleep apnea, excessive alcohol use. We specifically discussed about addressing each of this in detail. 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 Overall, difficult social situation but I suggested that he tries his best to get the above under control. He agrees. For medications, he is already on a good dose of beta-blockers as well as diltiazem. Remains on anticoagulation. No further changes. We will hold off antiarrhythmics considering the history of alcohol excess. Again holding off ablation for the same reason. That may be another option in the future however. Success rate will still be limited by uncontrolled risk factors. Follow-up in 6 months. Coding Level of Care Code Est Pt Level 4 (74958) Diagnoses Paroxysmal atrial fibrillation I48.0 Essential hypertension I10 Hypertension type: essential hypertension Morbid obesity E66.01 Excessive drinking alcohol F10.10 JOHNNIE (obstructive sleep apnea) G47.33
== END 2024-01-10 14:51 | disposition home or self-care (01) ==
PROVIDERS: PCP Nurse Practitioner Family; Visit Provider Internal Medicine
DX: I48.0 Paroxysmal atrial fibrillation (principal); I10 Essential (primary) hypertension; E66.01 Morbid (severe) obesity due to excess calories; F10.10 Alcohol abuse, uncomplicated; G47.33 Obstructive sleep apnea (adult) (pediatric)
CPT/HCPCS: 99214

== ENCOUNTER → 2024-01-10 14:06 | Outpatient (BNVA) | payer OTHER, SELFPAY | PROVIDERS: PCP Nurse Practitioner Family; Visit Provider Internal Medicine | DX: I48.0 Paroxysmal atrial fibrillation (principal); I10 Essential (primary) hypertension; G47.33 Obstructive sleep apnea (adult) (pediatric); E66.01 Morbid (severe) obesity due to excess calories; F10.10 Alcohol abuse, uncomplicated; Z68.33 Body mass index [BMI] 33.0-33.9, adult | CPT/HCPCS: 99212 ==

== ENCOUNTER 2024-04-17 14:12 | Outpatient (AMB) | payer OTHER, SELFPAY ==
[2024-04-17 14:21] VITALS: BP 118/70; PULSE 64; O2SAT 96; BMI 33.6
--- NOTE | 2024-04-17 14:21 | A.OFFPC_ITS ---
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 Accompanied by: Self / Same As Patient Allergies erythromycin base Allergy (Verified 04/17/24 14:40) hives Medication List - Last Reconciled 04/17/24 by VALERIE Douglas apixaban (Eliquis) 5 mg PO BID 30 days cholecalciferol (vitamin D3) 1,250 mcg PO QWEEK diltiazem HCl CD 120 mg PO DAILY gabapentin 100 mg PO BEDTIME lorazepam 1 mg PO DAILY PRN 30 days metoprolol tartrate 100 mg PO BID 90 days milk thistle 150 mg PO BID omeprazole 20 mg PO DAILY ondansetron 8 mg PO Q12H PRN 10 days umeclidinium 62.5 mcg/actuation (Incruse Ellipta) 1 inh inhalation DAILY 30 days Tobacco use date assessed: 04/17/24 Dental Screening Dental Screen Date: 04/17/24 Did you have a dental visit in the last 12 months?: Yes Did you have a dental problem in the last 6 months where you did not have access to dental care?: No Was dental information given to patient?: Patient has dentist HPI HPI Comments History of Present Illness Details Patient is a 59-year-old male here for physical exam. Is my 1st time meeting the patient. Patient is unknown when his last Tdap was will obtain records from previous provider Patient has a past medical history significant for: AFib-currently seeing Cardiology, also takes metoprolol, diltiazem, Eliquis. COPD-currently using Incruse Ellipta with [id number] effect. Has establish care with Pulmonary Medicine. Anxiety depression-patient is establish care with psychiatry. Utilizing gabapentin at night and lorazepam p.r.n. Vitamin-D deficiency-patient takes 14296 units per week Reflux-patient utilizing omeprazole 20 mg p.o. daily, will change the pantoprazole sodium 20 mg p.o. daily. Elevated LFTs-will redraw. Patient currently utilizing 150 mg milk this to p.o. b.i.d. daily. 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 [facility] JOHNNIE-patient has appointment upcoming with Sleep Medicine. Recently obtain CPAP machine. Will draw fasting labs. Patient's last colonoscopy in 2021. [facility] Medical History (Updated 04/17/24 @ 16:39 by VALERIE Douglas) JOHNNIE (obstructive sleep apnea) Paroxysmal atrial fibrillation Surgical History (Updated 04/17/24 @ 14:26 by Oren Don CMA) Hx of colonoscopy History of throat surgery Family History Maternal Grandmother Mental health disorder [facility] Alcohol intake: current Alcohol intake frequency: 0-2 drinks per day Alcohol type: beer, wine and hard liquor Patient Tobacco Use Status: Never used Tobacco e-Cigarette/Vaping Use: Never Used service: No Current occupational status: employed Current occupation: [employer] Current occupational exposures/hazards: No Cognitive needs: No Hearing needs: No Vision needs: No Questionnaire PHQ-9 Over the last 2 weeks, how often have you been bothered by any of the following problems? 1. Little interest or pleasure in doing things: several days 2. Feeling down, depressed, or hopeless: several days 3. Trouble falling or staying asleep, or sleeping too much: several days 4. Feeling tired or having little energy: several days 5. Poor appetite or overeating: several days 6. Feeling bad about yourself - or that you are a failure or have let yourself or your family down: several days 7. Trouble concentrating on things, such as reading the newspaper or watching television: not at all 8. Moving or speaking so slowly that other people could have noticed. Or the opposite - being so fidgety or restless that you have been moving around a lot more than usual: not at all 9. Thoughts that you would be better off or of hurting yourself in some way : not at all Total score: 6 Depression Screening Interpretation: Negative Depression Screening Done: Yes 76175 - PHQ-9 Billing: Yes Source: Developed by Drs. Luis Chaudhry, Fani B.Peter Avery and colleagues, with an educational mahesh from [employer]. Thrive Questionnaire Date Thrive assessed: 04/17/24 I am a: Patient What is your living situation today?: I have a steady place to live Within the past 12 months, did the food you bought not last and you didn't have the money to get more?: Never true Within the past 12 months, did you worry whether your food would run out before you got money to buy more?: Never true Do you have trouble paying for medicines?: No Do you have trouble getting transportation to medical appointments?: No Do you have trouble paying your heating and electricity bill?: No Do you have trouble taking care of your child, family member or friend?: No Do you have trouble with day-to-day activities such as bathing, preparing meals, shopping, managing finances, etc.?: No Are you currently unemployed and looking for a job?: No Are you interested in more education?: No Please select the resources that you would like help with: None Currently or been in a relationship where the following occur: no concerns reported THRIVE Score: 0 AUDIT C Alcohol Use Questionnaire (AUDIT-C) 1. How often do you have a drink containing alcohol?: 4 or more times a week 2. How many drinks containing alcohol do you have on a typical day when you are drinking?: 3 or 4 3. How often do you have six or more drinks on one occasion?: Never Total Score: 5 Score Reviewed/Action Taken: Yes ESTHELA-7 AMB Questionnaire ESTHELA-7 Date ESTHELA - 7 assessed: 04/17/24 Feeling nervous, anxious, or on edge: 2 = More than half the days Not being able to stop or control worryin = Several days Worrying too much about different things: 1 = Several days Trouble relaxin = Several days Being so restless that it is hard to sit still: 1 = Several days Becoming easily annoyed or irritable: 1 = Several days Feeling afraid as if something awful might happen: 1 = Several days Total ESTHELA-7 score (0-4 normal; 5-9 mild; 10-14 moderate; 15-21 severe): 8 Source: Developed by Drs. Luis Chaudhry, Peter Spencer and colleagues, with an educational mahesh from [employer]. ESTHELA-7 Assessment Billing ESTHELA-7 Assessment Tool: ESTHELA-7 Assessment 93630 Review of Systems Const All systems reviewed & are unremarkable except as noted in HPI and below Physical exam (Primary Care) Vital Signs: Last Vital Signs Pulse 64 04/17/24 14:21 BP 118/70 04/17/24 14:21 Pulse Ox 96 04/17/24 14:21 Oxygen Delivery Method Room Air 04/17/24 14:21 BMI result Body Mass Index 33.6 Tobacco/Smoking Status: Tobacco use Status Tobacco use date assessed 04/17/24 04/17/24 14:29 Patient Tobacco Use Status Never used Tobacco 04/17/24 14:21 e-Cigarette/Vaping Use Never Used 04/17/24 14:21 PHQ-9: PHQ-9 Score PHQ-9: Total score 6 04/17/24 14:30 Depression Screening Interpretation: Negative Thrive Assessment: Date of Thrive Assessment Date Thrive assessed 04/17/24 04/17/24 14:30 Currently or been in a relationship where the following occur: no concerns reported Assessment and Plan Assessment & Plan (1) Encounter for routine adult physical exam with abnormal findings: Comment: Will draw fasting labs. Will obtain Tdap status. Patient colonoscopy in 2021. Will draw PSA Code(s): Z00.01 - Encounter for general adult medical examination with abnormal findings (2) EtOH dependence: Comment: Will give referral to [facility]. Code(s): F10.20 - Alcohol dependence, uncomplicated Qualifiers: Substance use status: uncomplicated Qualified Code(s): F10.20 - Alcohol dependence, uncomplicated (3) JOHNNIE (obstructive sleep apnea): Comment: Patient has establish care with Sleep Medicine. Restarting CPAP machine. Code(s): G47.33 - Obstructive sleep apnea (adult) (pediatric) (4) Paroxysmal atrial fibrillation: Comment: Establish care with Cardiology. Currently utilize the medication metoprolol, Eliquis, diltiazem. Code(s): I48.0 - Paroxysmal atrial fibrillation (5) COPD (chronic obstructive pulmonary disease): Comment: Patient utilizes Incruse Ellipta inhaler. Has establish care with Pulmonary Medicine Code(s): J44.9 - Chronic obstructive pulmonary disease, unspecified Qualifiers: COPD type: unspecified COPD Qualified Code(s): J44.9 - Chronic obstructive pulmonary disease, unspecified (6) Anxiety: Comment: Has establish care with Psychiatry. Currently utilizing gabapentin at bedtime and lorazepam p.r.n. Code(s): F41.9 - Anxiety disorder, unspecified Plan: Draw labs. Plan Will follow-up with results. Orders: Orders Complete Blood Count Auto Diff Today Z13.0 - Encounter for screening for diseases of the blood and blood-forming organs and certain disorders involving the immune mechanism Comprehensive Met. Panel Today Z91.89 - Other specified personal risk factors, not elsewhere classified Vitamin B12 Today Z13.21 - Encounter for screening for nutritional disorder PSA,Total (Free>4and<10) Today Z12.5 - Encounter for screening for malignant neoplasm of prostate Vitamin D 25-OH (D2 and D3) Today Z13.21 - Encounter for screening for nutritional disorder Vitamin B6 Today Z13.21 - Encounter for screening for nutritional disorder UA CC w/rflx Micro + Cult Today Z13.89 - Encounter for screening for other disorder Lipid Panel Today Z13.220 - Encounter for screening for lipoid disorders Referrals Addiction Medicine Referral F10.20 - Alcohol dependence, uncomplicated Medications: New pantoprazole 20 mg PO DAILY 90 tabs 0RF Coding Level of Care Code Est Pt Prev Care 40-64y(88534) Diagnoses Encounter for routine adult physical exam with abnormal findings Z00.01 Uncomplicated alcohol dependence F10.20 Substance use status: uncomplicated JOHNNIE (obstructive sleep apnea) G47.33 Paroxysmal atrial fibrillation I48.0 Chronic obstructive pulmonary disease, unspecified COPD type J44.9 COPD type: unspecified COPD Anxiety F41.9 Additional Codes ESTHELA-7 Assessment Billing - ESTHELA-7 Assessment Tool: ESTHELA-7 Assessment 75843 ([id number]) Time Spent (min) 35
== END 2024-04-17 15:09 | disposition home or self-care (01) ==
PROVIDERS: PCP Nurse Practitioner Family; Visit Provider Nurse Practitioner Primary Care
DX: Z00.00 Encounter for general adult medical examination without abnormal findings (principal); F10.20 Alcohol dependence, uncomplicated; I48.0 Paroxysmal atrial fibrillation; J44.9 Chronic obstructive pulmonary disease, unspecified; G47.33 Obstructive sleep apnea (adult) (pediatric); F41.9 Anxiety disorder, unspecified
CPT/HCPCS: 99396

== ENCOUNTER 2024-06-26 15:06 | Outpatient (AMB) | payer OTHER, SELFPAY ==
[2024-06-26 15:11] VITALS: BP 124/68; PULSE 82; BMI 34.0
--- NOTE | 2024-06-26 15:11 | MHC.OFFVIS ---
Vital Signs 06/26/24 15:11 Height 6 ft 2 in Weight 264 lb 8.875 oz BMI 34.0 BP 124/68 Blood Pressure Location Lt brachial Position Sitting Pulse 82 Pulse Source Monitor Intake Visit Reasons: 6month f/u Allergies erythromycin base Allergy (Verified 04/17/24 14:40) hives Medication List - Last Reconciled 06/26/24 by Teena Ravi NP apixaban (Eliquis) 5 mg PO BID 30 days cholecalciferol (vitamin D3) 1,250 mcg PO QWEEK diltiazem HCl CD 120 mg PO DAILY lorazepam 1 mg PO DAILY PRN 30 days metoprolol tartrate 100 mg PO BID 90 days milk thistle 150 mg PO BID mirtazapine 7.5 mg PO BEDTIME ondansetron 8 mg PO Q12H PRN 10 days pantoprazole 20 mg PO DAILY umeclidinium 62.5 mcg/actuation (Incruse Ellipta) 1 inh inhalation DAILY 30 days HPI Comments Details: 51-year-old male presents today for follow-up. He reports he has been doing okay since the last visit. He had last seen Dr. Peraza 01/10/2024. He reports he has some concerns over his medications. He reports he feels less motivated and not feel himself. He feels he is having more frequent episodes of AFib. He has a history of alcohol dependence, obstructive sleep apnea, paroxysmal atrial fibrillation, COPD, obesity, atrial flutter, hypertension, and anxiety. He reports his drinking has been about the same. He does not use his CPAP machine. He denies any bleeding issues, chest pains, shortness of breath, or dizziness. He reports he has been very stressed lately and feeling some more episodes of AFib more frequently. He states he has been working with Psychiatry for medications related to his depression and anxiety. [facility] Medical History (Updated 04/17/24 @ 16:39 by VALERIE Douglas) JOHNNIE (obstructive sleep apnea) Paroxysmal atrial fibrillation Surgical History (Updated 04/17/24 @ 14:26 by Oren Don CMA) Hx of colonoscopy History of throat surgery Family History Maternal Grandmother Mental health disorder Social History Housing: Condominium Alcohol intake: current Alcohol intake frequency: 0-2 drinks per day Alcohol type: beer, wine and hard liquor Patient Tobacco Use Status: Never used Tobacco e-Cigarette/Vaping Use: Never Used service: No Current occupational status: employed Current occupation: [employer] Current occupational exposures/hazards: No Cognitive needs: No Hearing needs: No Vision needs: No Review of Systems Const Denies weakness ENT Denies dizziness Card Denies chest pain, Denies chest pain with activity, Denies syncope, Denies rapid heart rate, Denies pedal edema, Denies edema, Denies leg edema, Denies lightheadedness, Denies palpitations, Denies dyspnea, Denies dyspnea on exertion and Denies orthopnea Resp Denies cough, Denies dyspnea and Denies dyspnea on exertion GI Denies hematochezia and Denies change in stool character Musc Denies abnormal gait, Denies muscle cramps, Denies muscle weakness, Denies numbness, Denies radiating pain into limb and Denies tingling Neuro Denies abnormal gait, Denies dizziness, Denies syncope, Denies numbness, Denies tingling and Denies weakness Endo Denies palpitations Physical Exam Vital Signs: Last Vital Signs Pulse 82 06/26/24 15:11 BP 124/68 06/26/24 15:11 BMI result Body Mass Index 34.0 Const General: healthy appearing and no acute distress Orientation/consciousness: patient oriented x3 HEENT Head: Yes normal to inspection Eyes General: appearance normal, both eyes and all related structures Neck Neck: Yes normal visual inspection Chest Chest palpation & inspection: normal inspection of the chest Resp Effort & Inspection: normal respiratory effort Auscultation: clear to auscultation bilaterally Cardio Jugular venous distension: no JVD Palpation: normal PMI Rate: regular rate Rhythm: abnormal rhythm regularly irregular Heart sounds: S1 normal heart sound present, S2 normal heart sound present, no click, no gallops, no murmurs and no rubs GI Inspection: Yes normal to inspection Palpation (GI): Soft to palpation Skin General skin exam: no rashes or lesions noted Neuro General: patient oriented x3 Extrem General: Yes normal to inspection Psych Appearance: grossly normal Office Procedures EKG Details: EKG today atrial flutter with variable AV block. Rate 82 beats per minute. QRS 84 ms. QTc 427 ms. [id number], Complete Assessment & Plan Assessment & Plan (1) Paroxysmal atrial fibrillation: Comment: Establish care with Cardiology. Currently utilize the medication metoprolol, Eliquis, diltiazem. Code(s): I48.0 - Paroxysmal atrial fibrillation Category: Medical (2) JOHNNIE (obstructive sleep apnea): Comment: Patient has establish care with Sleep Medicine. Restarting CPAP machine. Code(s): G47.33 - Obstructive sleep apnea (adult) (pediatric) Category: Medical (3) Obese: Code(s): E66.9 - Obesity, unspecified Category: Medical (4) Excessive drinking alcohol: Code(s): F10.10 - Alcohol abuse, uncomplicated Category: Medical Plan Patient is asking why cardioversion or ablation could not be done. Educated that due to excessive alcohol intake it is unlikely that he would cardiovert into sinus rhythm and it is a risk versus benefit consideration. That alcohol use is an exacerbation for atrial arrhythmias and if he was to convert to sinus with alcohol use is likely he would return to atrial fibrillation or atrial flutter. He is on beta-blockers, diltiazem and anticoagulation. No changes at this time. Will order Holter monitor to assess for if any further arrhythmias. Discussed that if he is to completely cut out alcohol from his lifestyle an ablation may be considered. To continue working with his providers regarding his health. But success to convert to sinus while using alcohol is unlikely. He reports he is motivated. Advised to use CPAP machine and weight loss. Orders: Orders ECG holter monitor 48 hour 06/26/24 I48.0 - Paroxysmal atrial fibrillation Coding Level of Care Code Est Pt Level 4 (71296) Diagnoses Paroxysmal atrial fibrillation I48.0 JOHNNIE (obstructive sleep apnea) G47.33 Obese E66.9 Excessive drinking alcohol F10.10 CPT Codes EKG - CPT: [id number]-[id number], Complete ([id number])
== END 2024-06-26 16:06 | disposition home or self-care (01) ==
PROVIDERS: PCP Nurse Practitioner Family; Visit Provider Nurse Practitioner
DX: I48.0 Paroxysmal atrial fibrillation (principal); G47.33 Obstructive sleep apnea (adult) (pediatric); E66.9 Obesity, unspecified; F10.10 Alcohol abuse, uncomplicated
CPT/HCPCS: 93010; 99214

== ENCOUNTER → 2024-06-26 15:06 | Outpatient (BNVA) | payer OTHER, SELFPAY | PROVIDERS: PCP Nurse Practitioner Family; Visit Provider Nurse Practitioner | DX: I48.0 Paroxysmal atrial fibrillation (principal); G47.33 Obstructive sleep apnea (adult) (pediatric); E66.9 Obesity, unspecified; Z68.34 Body mass index [BMI] 34.0-34.9, adult; F10.10 Alcohol abuse, uncomplicated; Z79.01 Long term (current) use of anticoagulants; Z79.899 Other long term (current) drug therapy | CPT/HCPCS: 93005; 99212 ==

== ENCOUNTER 2024-07-03 13:45 | Outpatient (REF) | payer OTHER, SELFPAY ==
[2024-07-03 16:09] LABS: Appearance Urine Clear; Color Urine Yellow; Glucose Urine UA Negative (Negative); Leukocyte Esterase Urine Trace (Negative); Nitrite Urine Negative (Negative); UMIC TRIGGER UACC YES; Urine Blood Negative (Negative); Urine Ketones Trace mg/dL (Negative); Urine Protein Negative (Neg-Trace)
[2024-07-03 16:13] LABS: MANUAL DIFF FLAG NO
[2024-07-03 16:15] LABS: Bacteria Urine None Seen (None Seen); Hyaline Casts Urine 0-2 /LPF (0-2); RBC Urine 0-2 /HPF (0-2); Squamous Epithelial Cell Urine 0-2 /HPF (0-2); WBC Urine 0-5 /HPF (0-5)
[2024-07-03 16:16] LABS: Basophils Percent Auto 0.8 % (0-2); Eosinophils Absolute Auto 0.1 X10*3/uL (0.0-0.4); Eosinophils Percent Auto 1.1 % (0-4); Hematocrit 47.9 % (42.0-52.0); Hemoglobin 17.3 g/dl (14.0-18.0); Imm Gran Abs Auto 0.03 X10*3/uL (0.00-0.03); Imm Gran Pct Auto 0.6 % (0.0-0.4); Lymphocytes Absolute Auto 1.3 X10*3/uL (1.2-4.9); Lymphocytes Percent Auto 25.3 % (20-40); Mean Corpuscular HGB Conc 36.1 g/dl (31.0-36.0); Mean Corpuscular Hemoglobin 34.9 pg (27.0-33.0); Mean Corpuscular Volume 96.6 fL (80.0-98.0); Mean Platelet Volume 10.3 fL (9.4-12.4); Monocytes Absolute Auto 0.5 X10*3/uL (0.1-1.2); Monocytes Percent Auto 10.3 % (2-11); Neutrophils Absolute Auto 3.3 x10*3/uL (2.0-8.3); Neutrophils Percent Auto 61.9 % (45-73); Platelet Count 171 X10*3/uL (160-400); Red Blood Count 4.96 X10*6/uL (4.60-5.80); Red Cell Distribution Width 12.6 % (11.0-16.0); White Blood Count 5.3 X10*3/uL (4.8-10.8)
[2024-07-03 16:29] LABS: Alanine Aminotransferase 119 U/L (0-40); Albumin Level 4.3 g/dL (3.5-5.0); Alkaline Phosphatase 52 U/L (39-117); Anion Gap 13 (12-20); Aspartate Amino Transferase 137 U/L (5-37); Bilirubin Total 1.3 mg/dL (0.0-1.0); Blood Urea Nitrogen 10 mg/dL (9-16); Calcium 9.8 mg/dL (8.4-10.2); Carbon Dioxide 29 mmol/L (22-29); Chloride 104 mmol/L (96-108); Cholesterol 225 mg/dL (<200); Estimated Glomerular Filt Rate > 60; Glucose Random 106 mg/dL (60-115); HDL Cholesterol 62 mg/dL (>40); LDL Cholesterol Calculated 139 mg/dL (<100); Potassium 4.8 mmol/L (3.3-5.1); Sodium 141 mmol/L (135-145); Total Protein 7.4 g/dL (6.5-8.0); Triglycerides 123 mg/dL (<150)
[2024-07-03 16:51] LABS: PSA,Total (Free>4and<10) 1.24 ng/mL (0.00-4.00)
[2024-07-03 16:57] LABS: Vitamin B12 452 pg/mL (200-900)
[2024-07-09 13:34] LABS: Vitamin D 25-OH, D2 <4 ng/mL; Vitamin D 25-OH, D3 29 ng/mL; Vitamin D 25-OH, Total 29 ng/mL (30-100)
[2024-07-13 15:03] LABS: Vitamin B6 11.9 ng/mL (2.1-21.7)
== END 2024-07-03 13:46 | disposition home or self-care (01) ==
LOC: HO.HMGCLDS 13:45
PROVIDERS: PCP Nurse Practitioner Family; Visit Provider Nurse Practitioner Primary Care
DX: Z13.0 Encounter for screening for diseases of the blood and blood-forming organs and certain disorders involving the immune mechanism (principal); Z13.89 Encounter for screening for other disorder; Z13.21 Encounter for screening for nutritional disorder; Z13.220 Encounter for screening for lipoid disorders; Z91.89 Other specified personal risk factors, not elsewhere classified; Z12.5 Encounter for screening for malignant neoplasm of prostate
CPT/HCPCS: 36415; 80053; 80061; 81001; 81003; 82306; 82607; 84153; 84207; 85025

== ENCOUNTER 2024-07-18 11:19 | Outpatient (AMB) | payer OTHER, SELFPAY ==
[2024-07-18 11:21] VITALS: BP 122/86; PULSE 87; O2SAT 96; BMI 34.2
--- NOTE | 2024-07-18 11:21 | MHC.OFFVIS ---
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 His CT chest did not demonstrate significant pulmonary nodules or emphysema. Patient continues on Incruse with no significant symptomatic response. He does complain of underlying AFib and is currently undergoing cardiac evaluation. Patient also is complaining of environmental allergies/allergic rhinitis symptoms. [facility] Medical History (Updated 07/18/24 @ 15:44 by Zeke Mcfarland MD) JOHNNIE (obstructive sleep apnea) Paroxysmal atrial fibrillation Surgical History (Updated 04/17/24 @ 14:26 by Oren Don CMA) Hx of colonoscopy History of throat surgery Family History Maternal Grandmother Mental health disorder Social History Housing: Condominium Alcohol intake: current Alcohol intake frequency: 0-2 drinks per day Alcohol type: beer, wine and hard liquor Patient Tobacco Use Status: Never used Tobacco e-Cigarette/Vaping Use: Never Used service: No Current occupational status: employed Current occupation: [employer] Current occupational exposures/hazards: No Cognitive needs: No Hearing needs: No Vision needs: No Review of Systems Const Denies daytime sleepiness, Denies excessive sweating, Denies fatigue, Denies fever(s), Denies lethargy, Denies malaise, Denies night sweats, Denies snoring and Denies weight loss Eyes Denies blurry vision and Denies itchy eyes ENT Reports nasal congestion, Denies post nasal drip, Denies sinus pain, Denies sinus pressure and Denies other ( Thrush) Card Denies chest pain, Denies pedal edema, Denies dyspnea, Reports dyspnea on exertion, Denies orthopnea and Denies paroxysmal nocturnal dyspnea Resp Denies cough, Denies hemoptysis, Denies excessive phlegm production, Denies dyspnea, Reports dyspnea on exertion, Denies snoring and Denies wheezing GI Denies abdominal pain and Denies heartburn Musc Denies myalgias, Denies arthralgias and Denies joint swelling Skin/Breast Denies rash Neuro Denies memory loss and Denies seizure-like activity Psych Denies abnormal sleep pattern, Denies anxiety and Denies memory loss Endo Denies excessive sweating, Denies fatigue and Denies heat intolerance Jerzy/Lymph Denies easy bruising Aller/Immun Denies itchy eyes, Denies seasonal rhinorrhea and Denies wheezing Physical Exam Vital Signs: Last Vital Signs Pulse 87 07/18/24 11:21 BP 122/86 07/18/24 11:21 Pulse Ox 96 07/18/24 11:21 Oxygen Delivery Method Room Air 07/18/24 11:21 BMI result Body Mass Index 34.2 Const General: no acute distress and alert Nutritional Appearance: not obese Orientation/consciousness: Other orientation findings ( oriented) HEENT Head: Yes atraumatic Eyes General: appearance normal, both eyes and all related structures Sclerae: sclerae normal EOM: EOMs intact bilaterally Neck Neck: Yes supple Lymphatic: no lymphadenopathy noted Resp Effort & Inspection: normal respiratory effort and no use of accessory muscles Auscultation: clear to auscultation bilaterally Cardio Rate: regular rate Rhythm: regular rhythm Heart sounds: no gallops, no murmurs and no rubs Skin General skin exam: other ( warm) Extrem General: No clubbing, No cyanosis and No edema Assessment & Plan Assessment & Plan (1) Environmental allergies: Code(s): Z91.09 - Other allergy status, other than to drugs and biological substances Category: Medical Plan: With seasonal exacerbation, will start on Flonase b.i.d.. (2) Dyspnea on exertion: Code(s): R06.09 - Other forms of dyspnea Category: Medical Plan: Pairs to have mostly cardiac etiology to his symptoms with AFib. Now significant COPD on emphysema on evaluation. Continue on Incruse. Orders: Orders Resp Allergy Profile Region I Today Z91.09 - Other allergy status, other than to drugs and biological substances Medications: New fluticasone propionate 50 mcg/actuation (Flonase Allergy Relief) administer into each nostril 1 spray intranasal BID 16 grams 0RF Coding Level of Care Code Est Pt Level 4 (09820) Diagnoses Environmental allergies Z91.09 Dyspnea on exertion R06.09
== END 2024-07-18 11:46 | disposition home or self-care (01) ==
PROVIDERS: PCP Nurse Practitioner Family; Visit Provider Internal Medicine Pulmonary Disease
DX: Z91.09 Other allergy status, other than to drugs and biological substances (principal); R06.09 Other forms of dyspnea
CPT/HCPCS: 99214

== ENCOUNTER → 2024-07-18 11:19 | Outpatient (BNVA) | payer OTHER, SELFPAY | PROVIDERS: PCP Nurse Practitioner Family; Visit Provider Internal Medicine Pulmonary Disease | DX: J44.9 Chronic obstructive pulmonary disease, unspecified (principal); R06.09 Other forms of dyspnea; Z91.09 Other allergy status, other than to drugs and biological substances; Z77.22 Contact with and (suspected) exposure to environmental tobacco smoke (acute) (chronic) | CPT/HCPCS: 99212 ==

== ENCOUNTER 2024-08-07 14:09 | Outpatient (REF) | payer OTHER, SELFPAY ==
--- NOTE | ~2024-08-07 | US_ITS ---
EXAMINATION: US ABDOMEN COMPLETE CLINICAL INFORMATION: Abnormal levels of other serum enzymes. COMPARISON: CT abdomen and pelvis 01/21/2022. TECHNIQUE: Real-time imaging of the abdominal viscera. Limited visualization due to bowel gas. FINDINGS: PANCREAS: Limited visualization of pancreatic tail and head. Imaged portion of pancreatic body is unremarkable. ABDOMINAL AORTA: Limited visualization. INFERIOR VENA CAVA: Visualized portions are normal. LIVER: Hepatomegaly, 17.3 cm. Increased hepatic parenchymal heterogeneity and echogenicity could be associated with hepatocellular disease/hepatic steatosis and severely limits visualization. Correlation with liver function tests and clinical exam recommended to determine further management. GALLBLADDER: No gallstones. No gallbladder wall thickening. COMMON BILE DUCT: Not visualized with certainty due to bowel gas. RIGHT KIDNEY: No hydronephrosis. No renal calculi. Lobulated renal contour difficult to evaluate due to limited visualization. The kidney measures 12.4 cm in maximum dimension. LEFT KIDNEY: No hydronephrosis. No renal calculi. Lobulated renal contour difficult to evaluate due to limited visualization. The kidney measures 12.0 cm in maximum dimension. SPLEEN: Normal. The spleen measures 11.4 cm in maximum dimension. FREE FLUID: None. US/US abdomen complete IMPRESSION: Hepatomegaly, 17.3 cm. Increased hepatic parenchymal heterogeneity and echogenicity could be associated with hepatocellular disease/hepatic steatosis and severely limits visualization. Correlation with liver function tests and clinical exam recommended to determine further management. Electronically signed by: Vandana Severino MD 08/20/2024 12:55 PM EDT
--- NOTE | 2024-08-07 15:02 | HM_ITS ---
Conclusion: 1. Patient was monitored for total period of 21 hours 2. Baseline was normal sinus rhythm with intermittent atrial fibrillation with controlled ventricular response 37.6% of the time. Average heart rate of 72 beats per minute in sinus rhythm 3. No significant pauses noted 4. No patient marked events MTDD
== END 2024-08-07 14:10 | disposition home or self-care (01) ==
LOC: HO.US 14:09
PROVIDERS: PCP Nurse Practitioner Family; Visit Provider Nurse Practitioner
DX: I48.0 Paroxysmal atrial fibrillation (principal); R74.8 Abnormal levels of other serum enzymes
CPT/HCPCS: 76700; 93225

== ENCOUNTER → 2024-08-07 15:02 | Outpatient (BNV) | payer OTHER, SELFPAY | PROVIDERS: PCP Nurse Practitioner Family; Visit Provider Internal Medicine Cardiovascular Disease | DX: I48.91 Unspecified atrial fibrillation (principal) | CPT/HCPCS: 93227 ==

== ENCOUNTER 2024-08-28 15:31 | Outpatient (AMB) | payer OTHER, SELFPAY ==
--- NOTE | 2024-08-28 15:42 | MHC.OFFVIS ---
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 His CT chest did not demonstrate significant pulmonary nodules or emphysema. Patient continues on Incruse with no significant symptomatic response. He does complain of underlying AFib and is currently continues to undergo cardiac evaluation. Patient also is complaining of environmental allergies/allergic rhinitis symptoms with suboptimal response to nasal fluticasone. [facility] Medical History (Updated 08/28/24 @ 16:19 by Zeke Mcfarland MD) JOHNNIE (obstructive sleep apnea) Paroxysmal atrial fibrillation Surgical History (Updated 04/17/24 @ 14:26 by Oren Don CMA) Hx of colonoscopy History of throat surgery Family History Maternal Grandmother Mental health disorder Social History Housing: Condominium Alcohol intake: current Alcohol intake frequency: 0-2 drinks per day Alcohol type: beer, wine and hard liquor Patient Tobacco Use Status: Never used Tobacco e-Cigarette/Vaping Use: Never Used service: No Current occupational status: employed Current occupation: [employer] Current occupational exposures/hazards: No Cognitive needs: No Hearing needs: No Vision needs: No Review of Systems ENT Reports nasal congestion and Reports post nasal drip Card Reports dyspnea on exertion Resp Denies cough, Denies excessive phlegm production, Reports dyspnea on exertion and Reports wheezing Aller/Immun Reports wheezing Physical Exam Vital Signs: Last Vital Signs Pulse 86 08/28/24 15:44 BP 110/70 08/28/24 15:44 Pulse Ox 96 08/28/24 15:44 Oxygen Delivery Method Room Air 08/28/24 15:44 BMI result Body Mass Index 33.9 Const General: no acute distress and alert Nutritional Appearance: obese Orientation/consciousness: Other orientation findings ( oriented) HEENT Head: Yes atraumatic Eyes General: appearance normal, both eyes and all related structures Sclerae: sclerae normal EOM: EOMs intact bilaterally Neck Neck: Yes supple Lymphatic: no lymphadenopathy noted Resp Effort & Inspection: normal respiratory effort and no use of accessory muscles Auscultation: clear to auscultation bilaterally Cardio Rate: regular rate Rhythm: regular rhythm Heart sounds: no gallops, no murmurs and no rubs Skin General skin exam: other ( warm) Extrem General: No clubbing, No cyanosis and No edema Assessment & Plan Assessment & Plan (1) COPD (chronic obstructive pulmonary disease): Code(s): J44.9 - Chronic obstructive pulmonary disease, unspecified Category: Medical Qualifiers: COPD type: unspecified COPD Qualified Code(s): J44.9 - Chronic obstructive pulmonary disease, unspecified Plan: Baseline reasonable control with Incruse and albuterol MDI. Continue current regimen. (2) Dyspnea on exertion: Code(s): R06.09 - Other forms of dyspnea Category: Medical Plan: Appears to be multifactorial as cardiac and pulmonary contributions. Patient is undergoing cardiac workup. If unrevealing, will consider cardiopulmonary exercise testing. (3) Environmental allergies: Code(s): Z91.09 - Other allergy status, other than to drugs and biological substances Category: Medical Plan: Suboptimal response to nasal fluticasone, will add nasal ipratropium. Medications: New ipratropium bromide administer into each nostril 2 sprays intranasal TID-QID PRN 15 mL 3RF post nasal drip Coding Level of Care Code Est Pt Level 4 (58446) Complex EM visit Add On G2211 Diagnoses Chronic obstructive pulmonary disease, unspecified COPD type J44.9 COPD type: unspecified COPD Dyspnea on exertion R06.09 Environmental allergies Z91.09
[2024-08-28 15:44] VITALS: BP 110/70; PULSE 86; O2SAT 96; BMI 33.9
== END 2024-08-28 16:11 | disposition home or self-care (01) ==
PROVIDERS: PCP Nurse Practitioner Family; Visit Provider Internal Medicine Pulmonary Disease
DX: J44.9 Chronic obstructive pulmonary disease, unspecified (principal); R06.09 Other forms of dyspnea; Z91.09 Other allergy status, other than to drugs and biological substances
CPT/HCPCS: 99214; G2211

== ENCOUNTER → 2024-08-28 15:31 | Outpatient (BNVA) | payer OTHER, SELFPAY | PROVIDERS: PCP Nurse Practitioner Family; Visit Provider Internal Medicine Pulmonary Disease | DX: J44.9 Chronic obstructive pulmonary disease, unspecified (principal); F17.290 Nicotine dependence, other tobacco product, uncomplicated; Z91.09 Other allergy status, other than to drugs and biological substances | CPT/HCPCS: 99212 ==

== ENCOUNTER 2024-09-18 15:18 | Outpatient (AMB) | payer OTHER, SELFPAY ==
--- NOTE | 2024-09-18 15:11 | A.OFFVISCC_ITS ---
Vital Signs 09/18/24 15:51 BP 135/80 Blood Pressure Location Lt brachial Position Sitting Pulse 75 Pulse Source Pulse Oximeter Pulse Oximetry (%) 95 Intake Visit Reasons: intake Allergies erythromycin base Allergy (Verified 04/17/24 14:40) hives HPI Comments Details: Patient presents for evaluation and treatment of alcohol use Presented as walk in--[facility] PCP, notes and labs reviewed Recent dx of fatty liver Dx Afib Motivator for inquiring about alcohol use Starts drinking late afternoon --avg number of drinks 6 Poor sleep Increasing anxiety Decreased appetite Drinking progressed 12 years ago following the of his children then even more during covid when he lost his job(s) Amount varies each day is different Goals unclear at time of visit as he vascilated btwn stopping, but also enjoying alcohol and the social aspect Review of Systems Const Reports as per HPI Physical Exam Vital Signs: Last Vital Signs Pulse 75 09/18/24 15:51 BP 135/80 09/18/24 15:51 Pulse Ox 95 09/18/24 15:51 Const General: cooperative, anxious and well groomed Psych Speech and movement: Clear speech present Affect: normal affect Attitude: cooperative Thought process: Circumstantial thought process present and Tangential thought process present Assessment & Plan Assessment & Plan (1) Alcohol use disorder, severe, dependence: Code(s): F10.20 - Alcohol dependence, uncomplicated Category: Medical Plan: * safer drinking strategies discussed * medications reviewed --would like to think about CEZAR * will follow up with RN in a week to review medications [facility] Medical History (Updated 09/21/24 @ 16:30 by Tova Houston CNP) JOHNNIE (obstructive sleep apnea) Paroxysmal atrial fibrillation Surgical History (Updated 04/17/24 @ 14:26 by Oren Don CMA) Hx of colonoscopy History of throat surgery Family History Maternal Grandmother Mental health disorder Social History Housing: Condominium Alcohol intake: current Alcohol intake frequency: 0-2 drinks per day Alcohol type: beer, wine and hard liquor Patient Tobacco Use Status: Never used Tobacco e-Cigarette/Vaping Use: Never Used service: No Current occupational status: employed Current occupation: [employer] Current occupational exposures/hazards: No Cognitive needs: No Hearing needs: No Vision needs: No
[2024-09-18 15:51] VITALS: BP 135/80; PULSE 75; O2SAT 95
== END 2024-09-18 15:57 | disposition home or self-care (01) ==
LOC: HO.HCC 15:18
PROVIDERS: PCP Nurse Practitioner Family; Visit Provider Nurse Practitioner Psychiatric/Mental Health
DX: F10.20 Alcohol dependence, uncomplicated (principal)
CPT/HCPCS: 99204

== ENCOUNTER → 2024-09-18 15:18 | Outpatient (BNVA) | payer OTHER, SELFPAY | PROVIDERS: PCP Nurse Practitioner Family; Visit Provider Nurse Practitioner Psychiatric/Mental Health | DX: F10.20 Alcohol dependence, uncomplicated (principal) | CPT/HCPCS: 99202 ==

== ENCOUNTER 2024-09-29 15:35 | Outpatient (AMB) | payer OTHER, SELFPAY ==
--- NOTE | 2024-09-29 15:42 | A.OFFVISCC_ITS ---
Intake Visit Reasons: MAT office Allergies erythromycin base Allergy (Verified 04/17/24 14:40) hives HPI HPI MAT office: Details: Patient presents for follow up --treatment AUD Seen by RN recently and plan was to start tracking drinks He has not yet started doing this Has started walking -incorporating into his day Unclear if he is interested in medications for AUD Review of Systems Const Reports as per HPI, Reports difficulty sleeping and Reports lethargy Physical Exam Const General: cooperative, healthy appearing and well groomed Nutritional Appearance: average body habitus Orientation/consciousness: patient oriented x3 Limitations: no limitations Neuro General: patient oriented x3 Psych Appearance: well kempt Speech and movement: Clear speech present Affect: normal affect Attitude: cooperative Thought process: Normal thought process present and Circumstantial thought process present Thought content: Normal thought content present Insight: Fair insight present (Psych) Judgement: Good judgement present (Psych) Assessment & Plan Assessment & Plan (1) Alcohol use disorder, severe, dependence: Code(s): F10.20 - Alcohol dependence, uncomplicated Category: Medical Plan: * undecided regarding CEZAR * incorporating education from RN into lifestyle * follow up 6 weeks with provider [facility] Medical History (Updated 09/21/24 @ 16:30 by Tova Houston CNP) JOHNNIE (obstructive sleep apnea) Paroxysmal atrial fibrillation Surgical History (Updated 04/17/24 @ 14:26 by Oren Don CMA) Hx of colonoscopy History of throat surgery Family History Maternal Grandmother Mental health disorder Social History Housing: Condominium Alcohol intake: current Alcohol intake frequency: 0-2 drinks per day Alcohol type: beer, wine and hard liquor Patient Tobacco Use Status: Never used Tobacco e-Cigarette/Vaping Use: Never Used service: No Current occupational status: employed Current occupation: [employer] Current occupational exposures/hazards: No Cognitive needs: No Hearing needs: No Vision needs: No
== END 2024-09-29 16:04 | disposition home or self-care (01) ==
PROVIDERS: PCP Nurse Practitioner Family; Visit Provider Nurse Practitioner Psychiatric/Mental Health
DX: F10.20 Alcohol dependence, uncomplicated (principal)
CPT/HCPCS: 99213

== ENCOUNTER → 2024-09-29 15:35 | Outpatient (BNVA) | payer OTHER, SELFPAY | PROVIDERS: PCP Nurse Practitioner Family; Visit Provider Nurse Practitioner Psychiatric/Mental Health | DX: F10.20 Alcohol dependence, uncomplicated (principal) | CPT/HCPCS: 99212 ==

== ENCOUNTER 2024-10-07 15:31 | Outpatient (AMB) | payer OTHER, SELFPAY ==
--- NOTE | 2024-10-07 15:35 | MHC.OFFVIS ---
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 His CT chest did not demonstrate significant pulmonary nodules or emphysema. Patient continues on Incruse with no significant symptomatic response. He does complain of underlying AFib and currently continues to undergo cardiac evaluation. His allergy symptoms have subsided. [facility] Medical History (Updated 09/21/24 @ 16:30 by Tova Houston CNP) JOHNNIE (obstructive sleep apnea) Paroxysmal atrial fibrillation Surgical History (Updated 04/17/24 @ 14:26 by Oren Don CMA) Hx of colonoscopy History of throat surgery Family History Maternal Grandmother Mental health disorder Social History Housing: Condominium Alcohol intake: current Alcohol intake frequency: 0-2 drinks per day Alcohol type: beer, wine and hard liquor Patient Tobacco Use Status: Never used Tobacco e-Cigarette/Vaping Use: Never Used service: No Current occupational status: employed Current occupation: [employer] Current occupational exposures/hazards: No Cognitive needs: No Hearing needs: No Vision needs: No Review of Systems Const Denies daytime sleepiness, Denies excessive sweating, Denies fatigue, Denies fever(s), Denies lethargy, Denies malaise, Denies night sweats, Denies snoring and Denies weight loss Eyes Denies blurry vision and Denies itchy eyes ENT Denies nasal congestion, Denies post nasal drip, Denies sinus pain, Denies sinus pressure and Denies other ( Thrush) Card Denies chest pain, Denies pedal edema, Denies dyspnea, Reports dyspnea on exertion, Denies orthopnea and Denies paroxysmal nocturnal dyspnea Resp Denies cough, Denies hemoptysis, Denies excessive phlegm production, Denies dyspnea, Reports dyspnea on exertion, Denies snoring and Denies wheezing GI Denies abdominal pain and Denies heartburn Musc Denies myalgias, Denies arthralgias and Denies joint swelling Skin/Breast Denies rash Neuro Denies seizure-like activity Endo Denies excessive sweating, Denies fatigue and Denies heat intolerance Jerzy/Lymph Denies easy bruising Aller/Immun Denies itchy eyes, Denies seasonal rhinorrhea and Denies wheezing Physical Exam Vital Signs: Last Vital Signs Pulse 95 10/07/24 15:36 BP 122/77 10/07/24 15:36 Pulse Ox 94 10/07/24 15:36 Oxygen Delivery Method Room Air 10/07/24 15:36 BMI result Body Mass Index 34.2 Const General: no acute distress and alert Nutritional Appearance: obese Orientation/consciousness: Other orientation findings ( oriented) HEENT Head: Yes atraumatic Eyes General: appearance normal, both eyes and all related structures Sclerae: sclerae normal EOM: EOMs intact bilaterally Neck Neck: Yes supple Lymphatic: no lymphadenopathy noted Resp Effort & Inspection: normal respiratory effort and no use of accessory muscles Auscultation: clear to auscultation bilaterally Cardio Rate: regular rate Rhythm: regular rhythm Heart sounds: no gallops, no murmurs and no rubs Skin General skin exam: other ( warm) Extrem General: No clubbing, No cyanosis and No edema Assessment & Plan Assessment & Plan (1) COPD (chronic obstructive pulmonary disease): Code(s): J44.9 - Chronic obstructive pulmonary disease, unspecified Category: Medical Qualifiers: COPD type: unspecified COPD Qualified Code(s): J44.9 - Chronic obstructive pulmonary disease, unspecified Plan: Reasonable baseline control on Incruse and albuterol MDI. Continue current regimen. (2) Environmental allergies: Code(s): Z91.09 - Other allergy status, other than to drugs and biological substances Category: Medical Plan: Well controlled as needed Flonase. Continue current regimen. Medications: New albuterol sulfate 90 mcg/actuation 2 puffs inhalation Q4-6H PRN 1 ea 6RF shortness of breath or wheezing Coding Level of Care Code Est Pt Level 4 (29076) Diagnoses Chronic obstructive pulmonary disease, unspecified COPD type J44.9 COPD type: unspecified COPD Environmental allergies Z91.09
[2024-10-07 15:36] VITALS: BP 122/77; PULSE 95; O2SAT 94; BMI 34.2
== END 2024-10-07 15:58 | disposition home or self-care (01) ==
PROVIDERS: PCP Nurse Practitioner Family; Visit Provider Internal Medicine Pulmonary Disease
DX: J44.9 Chronic obstructive pulmonary disease, unspecified (principal); Z91.09 Other allergy status, other than to drugs and biological substances
CPT/HCPCS: 99214

== ENCOUNTER → 2024-10-07 15:31 | Outpatient (BNVA) | payer OTHER, SELFPAY | PROVIDERS: PCP Nurse Practitioner Family; Visit Provider Internal Medicine Pulmonary Disease | DX: J44.9 Chronic obstructive pulmonary disease, unspecified (principal); Z91.09 Other allergy status, other than to drugs and biological substances | CPT/HCPCS: 99212 ==

== ENCOUNTER → 2024-10-13 15:45 | Outpatient (BNVA) | payer OTHER, SELFPAY | PROVIDERS: PCP Nurse Practitioner Family | DX: Z01.89 Encounter for other specified special examinations (principal) ==

== ENCOUNTER 2024-10-16 15:17 | Outpatient (AMB) | payer OTHER, SELFPAY ==
[2024-10-16 15:19] VITALS: BP 122/62; PULSE 88; BMI 34.0
--- NOTE | 2024-10-16 15:19 | A.OFFVIS_ITS ---
Vital Signs 10/16/24 15:19 Height 6 ft 2 in Weight 264 lb 8.875 oz BMI 34.0 BP 122/62 Blood Pressure Location Lt brachial Position Sitting Pulse 88 Pulse Source Pulse Oximeter Intake Visit Reasons: 3 mth f/up holter Allergies erythromycin base Allergy (Verified 04/17/24 14:40) hives Medication List - Last Reconciled 10/16/24 by Augustus Peraza MD albuterol sulfate 90 mcg/actuation 2 puffs inhalation Q4-6H PRN apixaban (Eliquis) 5 mg PO BID 30 days cholecalciferol (vitamin D3) 1,250 mcg PO QWEEK diltiazem HCl CD 120 mg PO DAILY lorazepam 1 mg PO DAILY PRN 30 days metoprolol tartrate 100 mg PO BID 90 days mirtazapine 7.5 mg PO BEDTIME ondansetron 8 mg PO Q12H PRN 10 days pantoprazole 20 mg PO DAILY umeclidinium 62.5 mcg/actuation (Incruse Ellipta) 1 inh inhalation DAILY 30 days HPI Comments Details: Zenon returns for follow-up regarding atrial fibrillation. He has atrial fibrillation suspected to be from some combination obesity, alcohol excess as well as obstructive sleep apnea which is not treated. Overall, he states he feels fine for the most part. He believes in his own words that he can feel the atrial fibrillation sensation about 1/3 of the time. Which is probably true as the Holter monitor shows similar burden of atrial fibrillation. He believes that he has cut back on the atrial fibrillation but still drinks daily. Still not using any CPAP. With regard to other symptoms, nothing clear-cut like angina or shortness of breath. In fact he has never had any chest pains. Other complaints include issues with sexual dysfunction. He believes they could be medication related. However, it could also be from alcohol. [facility] Medical History (Updated 10/16/24 @ 15:56 by Augustus Peraza MD) JOHNNIE (obstructive sleep apnea) Paroxysmal atrial fibrillation Surgical History (Updated 04/17/24 @ 14:26 by Oren Don CMA) Hx of colonoscopy History of throat surgery Family History Maternal Grandmother Mental health disorder Social History (Reviewed 04/17/24 @ 14:26 by AGNIESZKA Frias [facility] Alcohol intake: current Alcohol intake frequency: 0-2 drinks per day Alcohol type: beer, wine and hard liquor Patient Tobacco Use Status: Never used Tobacco e-Cigarette/Vaping Use: Never Used service: No Current occupational status: employed Current occupation: [employer] Current occupational exposures/hazards: No Cognitive needs: No Hearing needs: No Vision needs: No Review of Systems Const Denies weakness ENT Denies dizziness Card Denies chest pain, Denies chest pain with activity, Denies syncope, Denies rapid heart rate, Denies pedal edema, Denies edema, Denies leg edema, Denies lightheadedness, Reports palpitations, Denies dyspnea, Denies dyspnea on exertion and Denies orthopnea Resp Denies cough, Denies dyspnea and Denies dyspnea on exertion GI Denies hematochezia and Denies change in stool character Musc Denies abnormal gait, Denies muscle cramps, Denies muscle weakness, Denies numbness, Denies radiating pain into limb and Denies tingling Neuro Denies abnormal gait, Denies dizziness, Denies syncope, Denies numbness, Denies tingling and Denies weakness Endo Reports palpitations Physical Exam Vital Signs: Last Vital Signs Pulse 88 10/16/24 15:19 BP 122/62 10/16/24 15:19 BMI result Body Mass Index 34.0 Const General: comfortable and no acute distress Orientation/consciousness: patient oriented x3 HEENT Other: Unremarkable Head: Yes normal to inspection Neck Neck: Yes normal visual inspection Chest Chest palpation & inspection: normal inspection of the chest Resp Auscultation: clear to auscultation bilaterally Cardio Palpation: normal PMI Heart sounds: S1 normal heart sound present, S2 normal heart sound present, no gallops, no murmurs and no rubs GI Palpation (GI): Soft to palpation Back/Spine/Pelvis Other: unremarkable Skin General skin exam: no rashes or lesions noted Neuro General: patient oriented x3 Extrem General: Yes normal to inspection Psych Mental Status: mental status grossly normal Assessment & Plan Assessment & Plan (1) Paroxysmal atrial fibrillation: Code(s): I48.0 - Paroxysmal atrial fibrillation Category: Medical (2) HTN (hypertension): Code(s): I10 - Essential (primary) hypertension Category: Medical Qualifiers: Hypertension type: essential hypertension Qualified Code(s): I10 - Essential (primary) hypertension (3) Morbid obesity: Code(s): E66.01 - Morbid (severe) obesity due to excess calories Category: Medical (4) Excessive drinking alcohol: Code(s): F10.10 - Alcohol abuse, uncomplicated Category: Social Hx (5) JOHNNIE (obstructive sleep apnea): Code(s): G47.33 - Obstructive sleep apnea (adult) (pediatric) Category: Medical Plan Cardiac studies reviewed. In the echocardiogram, LVEF 55-60%. Described to have basal inferior/inferoseptal hypokinesis, but otherwise unremarkable. Normal myocardial perfusion imaging study. Hence above wall motion and finding could be artifactual. In the most recent Holter monitor, atrial fibrillation burden is about 37%. However, controlled rates even while in atrial fibrillation. He is on a combination of metoprolol and diltiazem. However, he feels that that is actually dysfunction/input hence which could be medication related. Hence we can wean the metoprolol to 50 mg twice a day for a week, 50 mg once a day for another week and then stop it completely. We can go up on the diltiazem dosing. He is currently on 120 mg daily. Advised him to take 2 tablets, 240 mg for the next 2 weeks and then increase it to 360 mg as we stopped the metoprolol completely. He wrote down the instructions clearly. If any questions still, he will contact us. Continue anticoagulation without changes. Otherwise, reinforced the fact that weight is a major issue and he needs to lose some weight. Alcohol abuse needs to also improve. He states he is trying but still drinks daily. Must use the CPAP mask. We discussed about these in great detail today. He asked about ablation and I explained the fact success rate may be limited due to many comorbidities and ongoing alcohol use and untreated sleep apnea. He agrees to work on these. We will reassess in due course. Orders: Orders CA echo transthoracic complete 4 Months I48.0 - Paroxysmal atrial fibrillation ECG 3 day holter monitor 4 Months I48.0 - Paroxysmal atrial fibrillation Medications: New diltiazem HCl CD 360 mg PO DAILY 90 caps 3RF Discontinued metoprolol tartrate Discontinued Reason: Doctor's Order 100 mg PO BID 90 days 180 tabs 2RF diltiazem HCl CD ONE TABLET DAILY NOW Discontinued Reason: Doctor's Order 120 mg PO DAILY 90 caps 3RF I48.91 - Unspecified atrial fibrillation Coding Level of Care Code Est Pt Level 4 (98863) Diagnoses Paroxysmal atrial fibrillation I48.0 Essential hypertension I10 Hypertension type: essential hypertension Morbid obesity E66.01 Excessive drinking alcohol F10.10 JOHNNIE (obstructive sleep apnea) G47.33
--- OUTSIDE RECORDS SUMMARY | 2024-10-22 04:16 | XMS_ITS | Data Portability ---
Author Organization YOANNA Savage damián, [address] Address [address] [place] [address] Assessment Encounter Date Assessment Date Assessment LastModified by Organization Details LastModified Time 03/29/2024 03/29/2024 Based on your presentation and exam, you are being diagnosed with lymphadenitis. This can either be caused by a virus or a bacteria. I am going to prescribe you and antibiotic to cover this infection. Please be sure to complete the full course of this antibiotic to prevent antibiotic resistance. Antibiotics will typically take 4-5 days to start to work with symptom improvement - if this is caused by a bacteria. The following are my other recommendations to help with symptoms and is important for this diagnosis: 1. Do not share any food or drinks 2. Change your toothbrush in 3-4 days 3. Take Ibuprofen or Tylenol if you do not have any allergies to these medications. If you take a blood thinner you should not take NSAIDS like Ibuprofen. These medication will help with the inflammation in your respiratory tract which should help the cough. (I would alternate between Tylenol 650 mg and your Ibuprofen 600 mg every 4 hours) 4. Warm Compress on the area may help with the discomfort. 5. If lymph node remains swelling and tender longer than 2 weeks this would warrant some imaging. 6. Lymph nodes that were inflamed may remain there for an extended period of time, but the should not be tender. Slowly they will go away. I would be seen again if you develop any of the following symptoms. 1. Fever > 101.0 2. Stiff neck - where you can't turn your neck 3. Trouble swallowing your saliva - drooling 4. Difficulty breathing 5. Severe Headache 6. Dental Pain Thank you for using [employer] today, please feel free to contact our office if you have any questions or concerns. [email or web address] Not available 03/29/2024 17:29:51 Plan of Treatment Reminders Order Date Submit Date Provider Last Modified By Organization Details Last Modified Time Details Appointments None recorded. Lab mononucleos is, heterophile Ab, blood 2023 [place] [facility], [address] [place], [address], 17:15:57 Referral None recorded. Procedures None recorded. Surgeries None recorded. Imaging None recorded. Medication Orders Augmentin 875 mg-125 mg tablet 2023 [place] [id number], [address] [facility] [place], [address], 17:29:53 Patient TargetsNo targets recorded. Patient InstructionsNo instructions recorded. Reason for Referral None Reported. Results Created Date Observation Date Name Description Value Unit Range Abnormal Flag Note LastModifiedBy Organization Detail LastModifiedTime 03/29/2003/29/2024 monon ucleo sis, heter ophil e Ab, blood Unknown Analyte negati ve Not Available [facility] [address] [place], [address], 03/29/2024 16:50:39 03/29/2003/29/2024 monon ucleo sis, heter ophil e Ab, blood Unknown Analyte yes Not Available _ [facility] [address] [place], [address], 03/29/2024 16:50:39 Result Notes None recorded. Problems Name Problem SNOMED Code Status Onset Date Resolution Date Notes Provider Name and Address Organization Details Recorded Time Atrial fibrillation 83507739 Active Sarah Berger null, PA - [facility] 16:28:14 Chronic obstructive pulmonary disease 05313858 Active Sarah Berger null, PA - [facility] 16:28:25 Hypertensive disorder 06107194 Active Sarah Berger null, PA - [facility] 16:28:34 Cervical lymphadenopath y 278130958 Active 2023 JERONIMO DRAKE, [employer] [address] [place], [address], PA - [facility] 4 16:50:27 Cervical lymphadenitis 2379110 Active 2023 JERONIMO DRAKE, RACHEL [address] [place], [address], [place] - [facility] 4 17:28:10 Problem Notes None recorded. Medical Equipment None Reported. Allergies Allergen ID Allergen Name Allergen Category Reaction Reaction Severity Criticality Documentation Date Start Date Code Code System Note Provider Name and Address Organization Details Recorded Time 024705 erythromy jia medicatio n Not available Not available Not available 03/29/2024 4053 RxNorm Sarah Berger null, PA - [facility] 4 16:24:54 Medications Name Sig Start Date Stop Date Status Note LastModified by Organization Details LastModified Time Augmentin 875 mg-125 mg tablet Take 1 tablet every 12 hours by oral route for 7 days. 2023 active Not Available Not Available Not Avai lable prednisone 10 mg tablet 03/29 completed Not Available Not Available Not Available metoprolol tartrate 100 mg tablet TAKE 1 TABLET BY MOUTH TWICE A DAY active Not Available Not Available No t Available metoprolol succinate ER 50 mg tablet,exte nded release 24 hr TAKE 1 TABLET BY MOUTH DAILY 03/29 completed Not Available Not Available Not Available ondansetron 8 mg disintegrat ing tablet DISSOLVE 1 TABLET BY MOUTH EVERY 12 HOURS NEEDED FOR NAUSEA AND VOMITING FOR 10 DAYS active Not Available Not Available No t Available metoprolol tartrate 50 mg tablet TAKE 1 TABLET BY MOUTH 2 TIMES A DAY 03/29 completed Not Available Not Available Not Available sertraline 25 mg tablet 03/29 completed Not Available Not Available Not Available diltiazem CD 120 mg capsule,ext ended release 24 hr TAKE 1 CAPSULE BY MOUTH EVERY DAY active Not Available Not Available No t Available gabapentin 100 mg capsule 03/29 completed Not Available Not Available Not Available metoprolol succinate ER 25 mg tablet,exte nded release 24 hr TAKE 1 TABLET BY MOUTH DAILY FOR 30 DAYS 03/29 completed Not Available Not Available Not Available lorazepam 1 mg tablet TAKE 1 TABLET BY MOUTH DAILY NEEDED FOR ANXIETY FOR 30 DAYS active Not Available Not Available No t Available losartan 100 mg tablet TAKE 1 TABLET BY MOUTH EVERY DAY 03/29 completed Not Available Not Available Not Available Eliquis 5 mg tablet TAKE 1 TABLET BY MOUTH TWICE A DAY active Not Available Not Available No t Available Incruse Ellipta 62.5 mcg/actuati on powder for inhalation INHALE 1 PUFF BY MOUTH DAILY active Not Available Not Available No t Available Vitals Date Recorded Body height Body mass index (BMI) Body weight Body temperature Respiratory rate Heart rate Oxygen saturation Oxygen saturation in Arterial blood by Pulse oximetry Systolic blood pressure Diastolic blood pressure Provider Name and Address Organization Details Last Updated DateTime 187.96 cm 32.4 kg/m2 682171. 28 g 97 [degF] 16 /min 72 /min 95 % 95 % 123 mm[Hg] 89 mm[Hg] Sarah Berger PA - [facility] 16:29:50 Social History Question Answer Notes LastModified by Organizat ion Details LastModified Time Tobacco Smoking Status Never Smoker Sarah Berger null, PA - [facility] 03/29/2024 16:26:14 What Is Your Level Of Alcohol Consumption? Occasional [email or web address] Information not available 03/29/2024 Sex: Unknown Functional Status None recorded. Mental Status None recorded. Family History Relationship Description Onset Age of this Age Resolved Age Notes LastModified by Organization Details LastModified Time Father No current problems or disability [email or web address] Not available 03/29 16:25:26 Mother No current problems or disability [email or web address] Not available 03/29 16:25:26 Medical History No medical history recorded. Past Encounters Encounter ID Performer Location Encounter Start Date Encounter Closed Date Diagnosis/Indication Diagnosis SNOMED-CT Code Diagnosis ICD10 Code [id number] [address] [address] [address] 12/21/2015 15:46:30 12/21/2015 17:01:[id number] [address] [address] 05/30/2020 15:14:10 05/30/2020 15:54:17 [id number] [address] [facility] [place] [address] 06/30/2016 18:11:27 06/30/2016 18:52:55 [id number] [place] [address] [facility] [place] [address] 03/29/2024 16:11:15 03/29/2024 17:43:35 Cervical lymphadenopathy 337993779 R59.0 Cervical lymphadenitis 2717462 I88.9 Health Concerns Section Related Observation LastModified by Organization Detai ls LastModified Time None Recorded Concern Status LastModified by Organization Details LastModified Time None Recorded Advance Directives Directive None Recorded Payers Encounter Date Sequence Insurance Name Policy Number Policy Reyes Covered Member ID Reyes Member ID Guarantor Name 05/30/2020 1 [place] [facility] [place]on [place] [id number] [place]on [place] 03/29/2024 1 [facility] (MEDICAID REPLACEMENT - HMO) [facility] [place]on [place] [id number] [place]on [place] Notes Date Note Type Note Provider Name and Address Organization Details Recorded Time 4 text/html Sore throatReported bypatient.Source of patient informationInformation obtained from patient; Patient arrived at Urgent Care ambulatory; right lymph node swelling for the pst 7 days Location:throat Severity:moderate Quality:burning Onset/Timin days Associated Symptoms:no cough; no sputum production; no shortness of breath; no wheezing; no sinus pain; no vomiting; no nausea; No hoarseness Context:no sick contacts Modifying Factors:OTC medication pt reports lymph node swelling, cervical for the past 7 dayleft has improvedright remains swollen painfulreports fatigue, poor appetiteno recent exposure to any tickspt initially had cold like sx that have now resolved JERONIMO DRAKE NP [address] [place], [address], PA - [facility] 03/29/2024 17:37:19
== END 2024-10-16 15:55 | disposition home or self-care (01) ==
PROVIDERS: PCP Nurse Practitioner Family; Visit Provider Internal Medicine
DX: I48.0 Paroxysmal atrial fibrillation (principal); I10 Essential (primary) hypertension; E66.01 Morbid (severe) obesity due to excess calories; F10.10 Alcohol abuse, uncomplicated; G47.33 Obstructive sleep apnea (adult) (pediatric)
CPT/HCPCS: 99214

== ENCOUNTER → 2024-10-16 15:17 | Outpatient (BNVA) | payer OTHER, SELFPAY | PROVIDERS: PCP Nurse Practitioner Family; Visit Provider Internal Medicine | DX: I48.0 Paroxysmal atrial fibrillation (principal); I10 Essential (primary) hypertension; E66.01 Morbid (severe) obesity due to excess calories; F10.10 Alcohol abuse, uncomplicated; G47.33 Obstructive sleep apnea (adult) (pediatric) | CPT/HCPCS: 99212 ==

== ENCOUNTER 2024-10-30 14:04 | Outpatient (AMB) | payer OTHER, SELFPAY ==
--- OUTSIDE RECORDS SUMMARY | 2024-10-30 14:06 | XMS_ITS | Data Portability ---
Author Organization YOANNA Savage damián, [address] Address [address] [place] [address] Assessment Encounter Date Assessment Date Assessment LastModified [...] 6. Dental Pain Thank you for using [employer] today, please feel free to contact our office if you have any questions or concerns. [email or web address] Not available 03/29/2024 17:29:51 Plan of Treatment Reminders Order Date Submit Date Provider Last Modified By Organization Details Last Modified Time Details Appointments None recorded. Lab mononucleos is, heterophile Ab, blood 2023 [place] [facility], [address] [place], [address], 17:15:57 Referral None recorded. Procedures None recorded. Surgeries None recorded. Imaging None recorded. Medication Orders Augmentin 875 mg-125 mg tablet 2023 [place] [id number], [address] [facility] [place], [address], 17:29:53 Patient TargetsNo targets recorded. Patient InstructionsNo instructions recorded. Reason for Referral None Reported. Results Created Date Observation Date Name Description Value Unit Range Abnormal Flag Note LastModifiedBy Organization Detail LastModifiedTime 03/29/2003/29/2024 monon ucleo sis, heter ophil e Ab, blood Unknown Analyte negati ve Not Available [facility] [address] [place], [address], 03/29/2024 16:50:39 03/29/2003/29/2024 monon ucleo sis, heter ophil e Ab, blood Unknown Analyte yes Not Available _ [facility] [address] [place], [address], 03/29/2024 16:50:39 Result Notes None recorded. Problems Name Problem SNOMED Code Status Onset Date Resolution Date Notes Provider Name and Address Organization Details Recorded Time Atrial fibrillation 11758865 Active Sarah Ste. Marie null, PA - [facility] 16:28:14 Chronic obstructive pulmonary disease 38257664 Active Sarah [place] null, PA - [facility] 16:28:25 Hypertensive disorder 48057619 Active Sarah [place] null, PA - [facility] 16:28:34 Cervical lymphadenopath y 241542215 Active 2023 JERONIMO DRAKE, REGISTERED MIDWIFE [address] [place], [address], PA - [facility] 4 16:50:27 Cervical lymphadenitis 1596172 Active 2023 JERONIMO DRAKE, RACHEL [address] [place], [address], PA - [facility] 4 17:28:10 Problem Notes None recorded. Medical Equipment None Reported. Allergies Allergen ID Allergen Name Allergen Category Reaction Reaction Severity Criticality Documentation Date Start Date Code Code System Note Provider Name and Address Organization Details Recorded Time 581962 erythromy jia medicatio n Not available Not available Not available 03/29/2024 4053 RxNorm Sarah [place] null, PA - [facility] 4 16:24:54 [...] Last Updated DateTime 187.96 cm 32.4 kg/m2 229604. 28 g 97 [degF] 16 /min 72 /min 95 % 95 % 123 mm[Hg] 89 mm[Hg] Sarah Ste. Marie PA - [facility] 16:29:50 Social History Question Answer Notes LastModified by Organizat ion Details LastModified Time Tobacco Smoking Status Never Smoker Sarah [place] null, PA - [facility] 03/29/2024 16:26:14 [...] Diagnosis/Indication Diagnosis SNOMED-CT Code Diagnosis ICD10 Code [id number] [address] [address] [address] 12/21/2015 15:46:30 12/21/2015 17:01:38 [id number] [address] [address] 05/30/2020 15:14:10 05/30/2020 15:54:17 [id number] [address] [facility] [place] [address] 06/30/2016 18:11:27 06/30/2016 18:52:55 [id number] [place] [address] [facility] [place] [address] 03/29/2024 16:11:15 03/29/2024 17:43:35 Cervical lymphadenopathy 917739533 R59.0 Cervical lymphadenitis 6607323 I88.9 Health Concerns Section Related Observation LastModified by Organization Detai ls LastModified Time None Recorded Concern Status LastModified by Organization Details LastModified Time None Recorded Advance Directives Directive None Recorded Payers Encounter Date Sequence Insurance Name Policy Number Policy Reyes Covered Member ID Reyes Member ID Guarantor Name 05/30/2020 1 [place] [facility] Zenon [place] [id number] [employer]on [place] 03/29/2024 1 [facility] (MEDICAID REPLACEMENT - HMO) [facility] [place]on [place] [id number] [employer]on [place] Notes Date Note Type Note [...] JERONIMO DRAKE NP [address] [place], [address], PA - [facility] 03/29/2024 17:37:19
--- NOTE | 2024-10-30 14:12 | MHC.PC.OV ---
Vital Signs 10/30/24 14:13 Height 6 ft 2 in Weight 271 lb 4 oz BMI 34.8 BP 120/70 Blood Pressure Location Rt brachial Position Sitting Pulse 68 Pulse Source Pulse Oximeter Pulse Oximetry (%) 95 Oxygen Delivery Method Room Air Intake Visit Reasons: reschedule from 10/20 Allergies erythromycin base Allergy (Verified 10/30/24 14:13) hives Tobacco use date assessed: 10/30/24 Dental Screening Dental Screen Date: 10/30/24 Did you have a dental visit in the last 12 months?: Yes Did you have a dental problem in the last 6 months where you did not have access to dental care?: No Was dental information given to patient?: Patient has dentist HPI reschedule from 10/20 HPI Details Chief Complaint The patient presents for routine follow-up to discuss alcohol use, fatty liver, and dyslipidemia. History of Present Illness The patient is a 59-year-old male presenting for a follow-up of chronic conditions: alcohol use disorder, nonalcoholic fatty liver disease, and dyslipidemia. The patient has a history of significant alcohol consumption, having reduced intake recently. He reports consuming three to eight alcoholic drinks on various days. Despite stating he will never completely abstain from alcohol, he acknowledges the need for reduction and has engaged with addiction medicine to manage this condition. The fatty liver diagnosis correlates with his alcohol use, and no abdominal pain is noted upon palpation. Dyslipidemia is withheld from statin treatment as the patient believes dietary changes, alcohol reduction, and increased exercise can sufficiently manage his cholesterol levels. He is under the care of cardiology as part of his health management. Social History - Substance use: Admits to continued alcohol consumption, currently reduced. - Exercise: Intention to increase physical activity. - Diet: Plans to improve dietary habits to manage health conditions. Health Maintenance - Encouraged reduction of alcohol consumption. - Stress on lifestyle modifications, including exercise and dietary changes to manage dyslipidemia. - Regular cardiology follow-up for cardiac health evaluation. Review of Systems denies any cp, sob, fevers, chills, abd pain, n/v, si or hi Physical Exam General: Cooperative, healthy appearing, comfortable, no acute distress and well developed Orientation: Patient oriented x3 Limitations: No limitations Head: Normal to inspection Ears: Hearing grossly normal bilaterally Nose: Normal external nose present Face and sinus: Normal facial exam Eyes: Appearance normal, both eyes and all related structures Neck: Normal visual inspection and Yes full ROM Respiratory: Normal respiratory effort and able to speak in complete sentences. Clear to auscultation bilaterally Cardiovascular: Regular rate and rhythm. Normal S1 and S2 GI: Normal to inspection. Soft to palpation and nontender Skin: perineal region with multiple skin tags Neuro: Patient oriented x3 Extremities: Normal to inspection Results Plan - Continue monitoring alcohol use with addiction medicine consultations. - Encourage lifestyle modifications including diet and exercise to manage dyslipidemia and fatty liver disease. - Regular follow-up with cardiology for ongoing heart health management. Patient was informed and verbally consented to the use of an ambient scribe for clinic note documentation during this visit. Discussion Notes I emphasized the significance of reducing alcohol intake to minimize the risks associated with alcohol use disorder and its effect on fatty liver disease. Alternatives to statins were discussed, considering the patient's preference managing dyslipidemia through lifestyle adjustments. I reinforced the necessity of continued engagement with addiction medicine and cardiology for comprehensive management of his health. We discussed realistic and achievable lifestyle changes, which include dietary improvements and increased physical activity, to support his refusal of statin use. The implications of continued alcohol use on his liver health were discussed, alongside strategies for reduction. Patient Instructions - Reduce alcohol intake with guidance from addiction medicine. - Implement dietary changes focusing on heart health. - Increase physical activity as discussed. - Continue follow-up with cardiology for heart health management. - Monitor liver health and report any new symptoms. [facility] Medical History (Updated 10/30/24 @ 15:00 by Иван Riley [facility]) JOHNNIE (obstructive sleep apnea) Paroxysmal atrial fibrillation Surgical History (Updated 04/17/24 @ 14:26 by Oren Don CMA) Hx of colonoscopy History of throat surgery Family History Maternal Grandmother Mental health disorder Social History Housing: Condominium Alcohol intake: current Alcohol intake frequency: 0-2 drinks per day Alcohol type: beer, wine and hard liquor Patient Tobacco Use Status: Never used Tobacco e-Cigarette/Vaping Use: Never Used service: No Current occupational status: employed Current occupation: [employer] Current occupational exposures/hazards: No Cognitive needs: No Hearing needs: No Vision needs: No Questionnaire PHQ-9 Over the last 2 weeks, how often have you been bothered by any of the following problems? 1. Little interest or pleasure in doing things: not at all 2. Feeling down, depressed, or hopeless: not at all 3. Trouble falling or staying asleep, or sleeping too much: several days 4. Feeling tired or having little energy: several days 5. Poor appetite or overeating: several days 6. Feeling bad about yourself - or that you are a failure or have let yourself or your family down: several days 7. Trouble concentrating on things, such as reading the newspaper or watching television: not at all 8. Moving or speaking so slowly that other people could have noticed. Or the opposite - being so fidgety or restless that you have been moving around a lot more than usual: not at all 9. Thoughts that you would be better off or of hurting yourself in some way: not at all Total score: 4 Depression Screening Interpretation: Negative Depression Screening Done: Yes 82738 - PHQ-9 Billing: Yes Source: Developed by Drs. Luis Chaudhry, Fani Maldondao, Peter Pineda and colleagues, with an educational mahesh from [employer]. Thrive Questionnaire Date Thrive assessed: 10/30/24 I am a: Patient What is your living situation today?: I have a steady place to live Within the past 12 months, did the food you bought not last and you didn't have the money to get more?: Never true Within the past 12 months, did you worry whether your food would run out before you got money to buy more?: Never true Do you have trouble paying for medicines?: No Do you have trouble getting transportation to medical appointments?: No Do you have trouble paying your heating and electricity bill?: Yes Do you have trouble taking care of your child, family member or friend?: No Do you have trouble with day-to-day activities such as bathing, preparing meals, shopping, managing finances, etc.?: No Are you currently unemployed and looking for a job?: No Are you interested in more education?: No Please select the resources that you would like help with: None Currently or been in a relationship where the following occur: No concerns reported THRIVE Score: 1 AUDIT C Alcohol Use Questionnaire (AUDIT-C) 1. How often do you have a drink containing alcohol?: 4 or more times a week 2. How many drinks containing alcohol do you have on a typical day when you are drinking?: 3 or 4 3. How often do you have six or more drinks on one occasion?: Monthly Total Score: 7 Score Reviewed/Action Taken: Yes ESTHELA-7 AMB Questionnaire ESTHELA-7 Date ESTHELA - 7 assessed: 10/30/24 Feeling nervous, anxious, or on edge: 1 = Several days Not being able to stop or control worryin = Several days Worrying too much about different things: 1 = Several days Trouble relaxin = Several days Being so restless that it is hard to sit still: 0 = Not at all Becoming easily annoyed or irritable: 1 = Several days Feeling afraid as if something awful might happen: 0 = Not at all Total ESTHELA-7 score (0-4 normal; 5-9 mild; 10-14 moderate; 15-21 severe): 5 Source: Developed by Drs. Luis Chaudhry, Fani Maldonado, Peter Pineda and colleagues, with an educational mahesh from [employer]. ESTHELA-7 Assessment Billing ESTHELA-7 Assessment Tool: ESTHELA-7 Assessment 73390 Physical exam (Primary Care) Vital Signs: Last Vital Signs Pulse 68 10/30/24 14:13 BP 120/70 10/30/24 14:13 Pulse Ox 95 10/30/24 14:13 Oxygen Delivery Method Room Air 10/30/24 14:13 BMI result Body Mass Index 34.8 Tobacco/Smoking Status: Tobacco use Status Tobacco use date assessed 10/30/24 10/30/24 14:15 Patient Tobacco Use Status Never used Tobacco 10/30/24 14:15 e-Cigarette/Vaping Use Never Used 10/30/24 14:15 PHQ-9: PHQ-9 Score PHQ-9: Total score 4 10/30/24 15:06 Depression Screening Interpretation: Negative Thrive Assessment: Date of Thrive Assessment Date Thrive assessed 10/30/24 10/30/24 14:15 Currently or been in a relationship where the following occur: No concerns reported Coding Level of Care Code Est Pt Level 3 (30904) Diagnoses Screening for colon cancer Z12.11 Dyslipidemia E78.5 Excessive drinking alcohol F10.10 Morbid obesity E66.01 Cutaneous skin tags L91.8 Additional Codes ESTHELA-7 Assessment Billing - ESTHELA-7 Assessment Tool: ESTHELA-7 Assessment 52923 ([id number]) PHQ-9 - 97573 - PHQ-9 Billing: Yes ([id number]) Assessment & Plan Assessment & Plan (1) Screening for colon cancer: Code(s): Z12.11 - Encounter for screening for malignant neoplasm of colon Category: Medical (2) Dyslipidemia: Code(s): E78.5 - Hyperlipidemia, unspecified Category: Medical (3) Excessive drinking alcohol: Code(s): F10.10 - Alcohol abuse, uncomplicated Category: Social Hx (4) Morbid obesity: Code(s): E66.01 - Morbid (severe) obesity due to excess calories Category: Medical (5) Cutaneous skin tags: Code(s): L91.8 - Other hypertrophic disorders of the skin Category: Medical Plan . Orders: Orders Comprehensive [place]. Panel Fast Today E78.5 - Hyperlipidemia, unspecified Complete Blood Count Auto Diff Today E66.01 - Morbid (severe) obesity due to excess calories, E78.5 - Hyperlipidemia, unspecified, F10.10 - Alcohol abuse, uncomplicated TSH reflex Free T4 Today E78.5 - Hyperlipidemia, unspecified Lipid Panel Today E78.5 - Hyperlipidemia, unspecified Referrals Gastroenterology Referral Z12.11 - Encounter for screening for malignant neoplasm of colon Dermatology Referral L91.8 - Other hypertrophic disorders of the skin
[2024-10-30 14:13] VITALS: BP 120/70; PULSE 68; O2SAT 95; BMI 34.8
== END 2024-10-30 15:25 | disposition home or self-care (01) ==
PROVIDERS: PCP Nurse Practitioner Family; Visit Provider Nurse Practitioner Family
DX: E78.5 Hyperlipidemia, unspecified (principal); Z12.11 Encounter for screening for malignant neoplasm of colon; E66.01 Morbid (severe) obesity due to excess calories; Z68.34 Body mass index [BMI] 34.0-34.9, adult; F10.10 Alcohol abuse, uncomplicated; L91.8 Other hypertrophic disorders of the skin

== ENCOUNTER → 2024-10-30 14:04 | Outpatient (BNVA) | payer OTHER, SELFPAY | PROVIDERS: PCP Nurse Practitioner Family; Visit Provider Nurse Practitioner Family | DX: E78.5 Hyperlipidemia, unspecified (principal); K76.0 Fatty (change of) liver, not elsewhere classified; F10.10 Alcohol abuse, uncomplicated; E66.01 Morbid (severe) obesity due to excess calories; L91.8 Other hypertrophic disorders of the skin; Z68.34 Body mass index [BMI] 34.0-34.9, adult | CPT/HCPCS: 96127; 99212 ==

== ENCOUNTER 2025-01-29 13:37 | Outpatient (AMB) | payer OTHER, SELFPAY ==
--- NOTE | 2025-01-29 13:39 | A.OFFVIS_ITS ---
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 His CT chest did not demonstrate significant pulmonary nodules or emphysema. Patient continues on Incruse with reasonable control of his symptoms. He continues to undergo cardiac workup. Today he complains of significant sinusitis symptoms including postnasal drip and resultant productive cough. [facility] Medical History (Updated 01/29/25 @ 13:55 by Zeke Mcfarland MD) JOHNNIE (obstructive sleep apnea) Paroxysmal atrial fibrillation Surgical History (Updated 04/17/24 @ 14:26 by Oren Don CMA) Hx of colonoscopy History of throat surgery Family History Maternal Grandmother Mental health disorder Social History Housing: Condominium Alcohol intake: current Alcohol intake frequency: 0-2 drinks per day Alcohol type: beer, wine and hard liquor Patient Tobacco Use Status: Never used Tobacco e-Cigarette/Vaping Use: Never Used service: No Current occupational status: employed Current occupation: [employer] Current occupational exposures/hazards: No Cognitive needs: No Hearing needs: No Vision needs: No Review of Systems Const Denies daytime sleepiness, Denies excessive sweating, Denies fatigue, Denies fever(s), Denies lethargy, Denies malaise, Denies night sweats, Denies snoring and Denies weight loss Eyes Denies blurry vision and Denies itchy eyes ENT Reports nasal congestion, Reports post nasal drip, Denies sinus pain, Reports sinus pressure and Denies other ( Thrush) Card Denies chest pain, Denies pedal edema, Denies dyspnea, Denies orthopnea and Denies paroxysmal nocturnal dyspnea Resp Reports cough, Denies hemoptysis, Denies excessive phlegm production, Denies dyspnea, Denies snoring and Denies wheezing GI Denies abdominal pain and Denies heartburn Musc Denies myalgias, Denies arthralgias and Denies joint swelling Skin/Breast Denies rash Neuro Denies memory loss and Denies seizure-like activity Psych Denies abnormal sleep pattern, Denies anxiety and Denies memory loss Endo Denies excessive sweating, Denies fatigue and Denies heat intolerance Jerzy/Lymph Denies easy bruising Aller/Immun Denies itchy eyes, Denies seasonal rhinorrhea and Denies wheezing Physical Exam Vital Signs: Last Vital Signs Pulse 69 01/29/25 13:40 BP 102/62 01/29/25 13:40 Pulse Ox 94 01/29/25 13:40 Oxygen Delivery Method Room Air 01/29/25 13:40 BMI result Body Mass Index 34.1 Const General: no acute distress and alert Nutritional Appearance: obese Orientation/consciousness: Other orientation findings ( oriented) HEENT Head: Yes atraumatic Eyes General: appearance normal, both eyes and all related structures Sclerae: sclerae normal EOM: EOMs intact bilaterally Neck Neck: Yes supple Lymphatic: no lymphadenopathy noted Resp Effort & Inspection: normal respiratory effort and no use of accessory muscles Auscultation: clear to auscultation bilaterally Cardio Rate: regular rate Rhythm: regular rhythm Heart sounds: no gallops, no murmurs and no rubs Skin General skin exam: other ( warm) Extrem General: No clubbing, No cyanosis and No edema Assessment & Plan Assessment & Plan (1) COPD (chronic obstructive pulmonary disease): Code(s): J44.9 - Chronic obstructive pulmonary disease, unspecified Category: Medical Qualifiers: COPD type: unspecified COPD Qualified Code(s): J44.9 - Chronic obstructive pulmonary disease, unspecified Plan: Well controlled on current regimen of Incruse and albuterol MDI. Continue current regimen. (2) Sinusitis: Code(s): J32.9 - Chronic sinusitis, unspecified Category: Medical Plan: Now with significant sinusitis symptoms. Will treat with a course of doxycycline. Medications: New doxycycline monohydrate 100 mg PO BID 20 tabs 0RF Coding Level of Care Code Est Pt Level 4 (76224) Diagnoses Chronic obstructive pulmonary disease, unspecified COPD type J44.9 COPD type: unspecified COPD Sinusitis J32.9
[2025-01-29 13:40] VITALS: BP 102/62; PULSE 69; O2SAT 94; BMI 34.1
--- OUTSIDE RECORDS SUMMARY | 2025-01-29 16:12 | XMS_ITS | Data Portability ---
Author Organization YOANNA Savage damián, [address] Address [address] [place] [address] Assessment Encounter Date Assessment Date Assessment LastModified [...] 6. Dental Pain Thank you for using [employer] today, please feel free to contact our office if you have any questions or concerns. ronchaga Not available 03/29/2024 17:29:51 Plan of Treatment Reminders Order Date Submit Date Provider Last Modified By Organization Details Last Modified Time Details Appointments None recorded. Lab mononucleos is, heterophile Ab, blood 2023 JBSA LACKLAND _[facility], [address] [place], [address], 17:15:57 Referral None recorded. Procedures None recorded. Surgeries None recorded. Imaging None recorded. Medication Orders Augmentin 875 mg-125 mg tablet 2023 JBSA LACKLAND [id number], [address] [facility], [address], 17:29:53 Patient TargetsNo targets recorded. Patient InstructionsNo instructions recorded. Reason for Referral None Reported. Results Created Date Observation Date Name Description Value Unit Range Abnormal Flag Note LastModifiedBy Organization Detail LastModifiedTime 03/29/2003/29/2024 monon ucleo sis, heter ophil e Ab, blood Unknown Analyte negati ve Not Available [facility] [address] [place], [address], 03/29/2024 16:50:39 03/29/2003/29/2024 monon ucleo sis, heter ophil e Ab, blood Unknown Analyte yes Not Available _ [facility] [address] [facility] [place], [address], 03/29/2024 16:50:39 Result Notes None recorded. Problems Name Problem SNOMED Code Status Onset Date Resolution Date Notes Provider Name and Address Organization Details Recorded Time Atrial fibrillation 91697305 Active Sarah [place] null, [place] - [facility] 16:28:14 Chronic obstructive pulmonary disease 93725653 Active Sarah [place] null, [place] - [facility] 16:28:25 Hypertensive disorder 36551270 Active Sarah [place] null, [place] - [facility] 16:28:34 Cervical lymphadenopath y 823818099 Active 2023 JERONIMO DRAKE, IRRIGATOR [employer] [address] [place], [address], [place] - [facility] 4 16:50:27 Cervical lymphadenitis 4117239 Active 2023 JERONIMO DRAKE, RACHEL [address] [place], [address], [place] - [facility] 4 17:28:10 Problem Notes None recorded. Medical Equipment None Reported. Allergies Allergen ID Allergen Name Allergen Category Reaction Reaction Severity Criticality Documentation Date Start Date Code Code System Note Provider Name and Address Organization Details Recorded Time 614097 erythromy jia medicatio n Not available Not available Not available 03/29/2024 4053 RxNorm Sarah [place] null, [place] - [facility] 4 16:24:54 [...] height Body mass index (BMI) Body weight Pain severity - 0-10 verbal numeric rating [Score] - Reported Body temperature Respiratory rate Heart rate Oxygen saturation Oxygen saturation in Arterial blood by Pulse oximetry Systolic blood pressure Diastolic blood pressure Provider Name and Address Organization Details Last Updated DateTime 187.96 cm 32.4 kg/m2 519863. 28 g 5 97 [degF] 16 /min 72 /min 95 % 95 % 123 mm[Hg] 89 mm[Hg] Sarah [place] - [facility] 16:29:50 Social History Question Answer Notes LastModified by Organizat ion Details LastModified Time Tobacco Smoking Status Never Smoker Sarah [place] null, [place] - [facility] 03/29/2024 16:26:14 [...] Diagnosis/Indication Diagnosis SNOMED-CT Code Diagnosis ICD10 Code Diagnosis Note [id number] [address] [address] 12/21/2015 15:46:30 12/21/2015 17:01:[id number] [address] 05/30/2020 15:14:10 05/30/2020 15:54:17 [id number] [address] [facility] [place]HAEL [place] [address] 06/30/2016 18:11:27 06/30/2016 18:52:55 [id number] [place] [address] [facility] [place] [address] 03/29/2024 16:11:15 03/29/2024 17:43:35 Cervical lymphadenopathy 227838488 R59.0 Cervical lymphadenitis 4899287 I88.9 Health Concerns Section Related Observation LastModified by Organization Detai ls LastModified Time None Recorded Concern Status LastModified by Organization Details LastModified Time None Recorded Advance Directives Directive None Recorded Payers Encounter Date Sequence Insurance Name Policy Number Policy Reyes Covered Member ID Reyes Member ID Guarantor Name 05/30/2020 1 [place] [facility] Zenon [place] [id number] [place]on [place] 03/29/2024 1 [facility] (MEDICAID REPLACEMENT - HMO) [employer] Zenon [place] [id number] Zenon [place] Notes Date Note Type Note [...] have now resolved JERONIMO DRAKE NP [address] [place], [address], [place] - [facility] 03/29/2024 17:37:19
== END 2025-01-29 13:54 | disposition home or self-care (01) ==
LOC: HO.HPS 13:38
PROVIDERS: PCP Nurse Practitioner Family; Visit Provider Internal Medicine Pulmonary Disease
DX: J44.9 Chronic obstructive pulmonary disease, unspecified (principal); J32.9 Chronic sinusitis, unspecified
CPT/HCPCS: 99214

== ENCOUNTER → 2025-01-29 13:37 | Outpatient (BNVA) | payer OTHER, SELFPAY | PROVIDERS: PCP Nurse Practitioner Family; Visit Provider Internal Medicine Pulmonary Disease | DX: J44.9 Chronic obstructive pulmonary disease, unspecified (principal); J32.9 Chronic sinusitis, unspecified | CPT/HCPCS: 99212 ==

== ENCOUNTER → 2025-02-19 14:09 | Outpatient (REF) | payer OTHER, SELFPAY ==
--- NOTE | 2025-02-19 14:15 | CA_ITS ---
Transthoracic Echocardiogram Patient (Last, First, Middle): Zenon France M Gender: Male Date of : 1965 Age: 60 Procedure Date: 02/19/2025 Procedure Type: Transthoracic Echocardiogram Location: OP Height: 185.42 cm Weight: 120.2 kg BSA: 2.43 m2 Heart Rate: bpm BP: 102 / 62 mmHg Maintenance Representative: JULIO Referring MD: Augustus Peraza MD Chartered Accountant: Aaron Rubi MD Symptoms: I48.0 - Paroxysmal atrial fibrillation Study Quality: Fair, contrast ECG Rhythm: Sinus Conclusions: - 1. Normal LV ejection fraction 55-60% with grade 1 diastolic dysfunction 2. Normal cardiac valvular Dopplers 3. Mildly dilated ascending aorta at 3.7 cm on this study Findings Procedure Information Contrast agent, definity, is being given per protocol without apparent complications. Left Ventricle Normal left ventricular size, thickness, and systolic function. The visually estimated ejection fraction is between 55-60%. Spectral Doppler is indicative of an impaired relaxation filling pattern. E/E prime ratio is <8, consistent with normal filling pressures. Evidence suggests grade I (mild) diastolic dysfunction. Right Ventricle Normal right ventricular cavity size and systolic function. Atria The left atrium is likely dilated. Interatrial shunt cannot be excluded. The right atrium is normal in size. Aortic Valve The aortic valve structure and function is likely normal. There is no aortic valve stenosis. There is no aortic valve regurgitation. Mitral Valve Likely normal mitral valve structure and function. There is trace mitral valve regurgitation. There is no mitral valve stenosis. Pulmonic Valve The pulmonic valve was not well visualized. Tricuspid Valve Likely normal tricuspid valve structure and function. Tricuspid regurgitation envelope is inadequate for calculation of right ventricular systolic pressure. Indeterminate right atrial pressure. Great Vessels The pulmonary artery was not well visualized. There is mild dilatation of the ascending aorta measuring 3.70 cm. Venous The inferior vena cava was not well visualized. Pericardium/Pleural The pericardium was not well visualized. Prior Study Comparison No significant change compared to prior study dated: 03/15/2023. Measurements 2D Linear Measurements IVSd: 1.04 0.6-0.9/0.6-1.0 cm LVIDd: 4.72 3.9-5.3/4.2-5.9 cm LVIDd Index: 1.94 2.4-3.2/2.2-3.1 cm/m2 LVIDs: 3.53 2.0-3.6 cm LVPWd: 0.76 0.7-1.1 cm LA Diam: 3.90 2.7-3.8/3.0-4.0 cm LAIDs Index: 1.60 1.5-2.3 cm/m2 LV Mass: 178.63 67-162/88-224 g LV Mass Index: 73.51 43-95/49-115 g/m2 LVOT Diam: 2.30 3.0+(-)1.3 cm 2D Systolic Function EF 4C: 59.40 >55% EF 2C: 61.50 >55% EF BiP: 59.70 >55% Mitral Valve MV Pk E: 0.51 MV PK A: 0.54 MV Decel Time: 324.00 E/A: 0.90 E'Lateral: 6.96 E'Medial: 5.55 E/E' Med: 9.10 E/E' Lat: 7.30 PHT: 95.00 MVA PHT: 2.32 Decel [place]: 1.56 Aortic Valve AoV Pk [place]: 1.13 AoV Mn [place]: 0.77 AoV VTI: 0.25 AoV Pk Grad: 5.00 Aov Mn Grad: 3.00 LASHAE Cont.VTI: 3.33 LVOT LVOT Pk [place]: 0.93 LVOT Mn [place]: 0.65 LVOT VTI: 0.20 LVOT Pk Grad: 3.00 LVOT Mn Grad: 2.00 LVOT Diam: 2.30 LVOT Area: 4.15 Diastolic Function MV Pk E: 0.51 MV Pk A: 0.54 E/A: 0.90 E'Medial: 5.55 E/E' Med: 9.10 E' Laterial: 6.96 E/E' Lat: 7.30 Right Ventricle TAPSE (mm): 21.40 TVS' [place]: 10.90 Great Vessels Aorta Sinus of Valsalva: 4.55 2.0-3.[address] [place]: 3.04 1.7-3.4 cm Ao Asc: 3.70 2.1-3.4 cm Ao Arch: 3.50 Updated in Other Vendor System with Status of Final Aaron Rubi MD electronically signed on 02/20/2025 2:52:50 PM with status of Final
--- OUTSIDE RECORDS SUMMARY | 2025-02-19 16:56 | XMS_ITS | Data Portability ---
Author Organization YOANNA Savage damián, [address] Address [address] [place] [address] Assessment Encounter Date Assessment Date Assessment LastModified [...] 6. Dental Pain Thank you for using [employer] today, please feel free to contact our office if you have any questions or concerns. ronchaga Not available 03/29/2024 17:29:51 Plan of Treatment Reminders Order Date Submit Date Provider Last Modified By Organization Details Last Modified Time Details Appointments None recorded. Lab mononucleos is, heterophile Ab, blood [address] [place] [address] [facility], [address] [place], [address], 17:15:57 Referral None recorded. Procedures None recorded. Surgeries None recorded. Imaging None recorded. Medication Orders Augmentin 875 mg-125 mg tablet 2023 [place] [id number], [address] [facility] [place], [address], 17:29:53 Patient TargetsNo targets recorded. Patient InstructionsNo instructions recorded. Reason for Referral None Reported. Results Created Date Observation Date Name Description Value Unit Range Abnormal Flag Note LastModifiedBy Organization Detail LastModifiedTime 03/29/2003/29/2024 monon ucleo sis, heter ophil e Ab, blood Unknown Analyte negati ve Not Available [address] [address] [place], [address], 03/29/2024 16:50:39 03/29/2003/29/2024 monon ucleo sis, heter ophil e Ab, blood Unknown Analyte yes Not Available _ [facility] [address] [place], [address], 03/29/2024 16:50:39 Result Notes None recorded. Problems Name Problem SNOMED Code Status Onset Date Resolution Date Notes Provider Name and Address Organization Details Recorded Time Atrial fibrillation 72753340 Active Sarah Binford null, PA - [facility] 16:28:14 Chronic obstructive pulmonary disease 70232495 Active Sarah Binford null, PA - [facility] 16:28:25 Hypertensive disorder 90744064 Active Sarah Binford null, PA - [facility] 16:28:34 Cervical lymphadenopath y 326978260 Active 2023 JERONIMO DRAKE, AIRPLANE WOODWORKER [address] [place], [address], [place] - [facility] 4 16:50:27 Cervical lymphadenitis 5295916 Active 2023 JERONIMO DRAKE, RACHEL [address] [place], [address], [place] - [facility] 4 17:28:10 Problem Notes None recorded. Medical Equipment None Reported. Allergies Allergen ID Allergen Name Allergen Category Reaction Reaction Severity Criticality Documentation Date Start Date Code Code System Note Provider Name and Address Organization Details Recorded Time 347099 erythromy jia medicatio n Not available Not available Not available 03/29/2024 4053 RxNorm Sarah Binford null, PA - [facility] 4 16:24:54 [...] Last Updated DateTime 187.96 cm 32.4 kg/m2 718344. 28 g 5 97 [degF] 16 /min 72 /min 95 % 95 % 123 mm[Hg] 89 mm[Hg] Sarah Binford PA - [facility] 16:29:50 Social History Question Answer Notes LastModified by Organizat ion Details LastModified Time Tobacco Smoking Status Never Smoker Sarah Binford null, PA - [facility] 03/29/2024 16:26:14 [...] SNOMED-CT Code Diagnosis ICD10 Code Diagnosis Note [id number] [address] [address] 12/21/2015 15:46:30 12/21/2015 17:01:[address] [id number] [address] [address] 05/30/2020 15:14:10 05/30/2020 15:54:17 [id number] [address] [facility] [place] [address] 06/30/2016 18:11:27 06/30/2016 18:52:55 [id number] [place] [address] [facility] [place] [address] 03/29/2024 16:11:15 03/29/2024 17:43:35 Cervical lymphadenopathy 328770117 R59.0 Cervical lymphadenitis 7889878 I88.9 Health Concerns Section Related Observation LastModified by Organization Detai ls LastModified Time None Recorded Concern Status LastModified by Organization Details LastModified Time None Recorded Advance Directives Directive None Recorded Payers Encounter Date Sequence Insurance Name Policy Number Policy Reyes Covered Member ID Reyes Member ID Guarantor Name 05/30/2020 1 [place] [facility] [place] [id number] [employer] [place] 03/29/2024 1 [facility] (MEDICAID REPLACEMENT - HMO) [employer] [place] [id number] [employer] [place] Notes Date Note Type Note [...] JERONIMO DRAKE NP [address] [place], [address], [place] - [facility] 03/29/2024 17:37:19
== END ==
LOC: HO.CARD 14:09
PROVIDERS: PCP Nurse Practitioner Family; Visit Provider Internal Medicine
DX: I48.0 Paroxysmal atrial fibrillation (principal)
CPT/HCPCS: 93242; 93306; Q9957

== ENCOUNTER → 2025-02-19 14:15 | Outpatient (BNV) | payer OTHER, SELFPAY | PROVIDERS: PCP Nurse Practitioner Family; Visit Provider Internal Medicine Cardiovascular Disease | DX: I48.0 Paroxysmal atrial fibrillation (principal) | CPT/HCPCS: 93306 ==

== ENCOUNTER 2025-04-23 15:04 | Outpatient (AMB) | payer OTHER, SELFPAY ==
--- NOTE | 2025-04-23 15:12 | MHC.OFFVIS ---
Vital Signs 04/23/25 15:14 Height 6 ft 2 in Weight 200 lb 2.876 oz BMI 25.7 BP 128/74 Blood Pressure Location Lt brachial Position Sitting Pulse 75 Pulse Source Pulse Oximeter Intake Visit Reasons: 6m follow up/holter/echo Hr Analyst Required: No Accompanied by: Self / Same As Patient Allergies erythromycin base Allergy (Verified 01/29/25 13:44) hives Medication List - Last Reconciled 04/23/25 by Augustus Peraza MD albuterol sulfate 90 mcg/actuation 2 puffs inhalation Q4-6H PRN amoxicillin-pot clavulanate 875-125 mg 1 tab PO BID apixaban (Eliquis) 5 mg PO BID cholecalciferol (vitamin D3) 1,250 mcg PO QWEEK diltiazem HCl CD 120 mg PO DAILY lorazepam 1 mg PO DAILY PRN 30 days metoprolol tartrate 100 mg PO BID mirtazapine 7.5 mg PO BEDTIME ondansetron 8 mg PO Q12H PRN 10 days pantoprazole 20 mg PO DAILY umeclidinium 62.5 mcg/actuation (Incruse Ellipta) 1 inh PO DAILY HPI Comments Details: Zenon returns for follow-up regarding atrial fibrillation. He has atrial fibrillation suspected to be from some combination obesity, alcohol excess as well as obstructive sleep apnea which is not treated. Overall, he states he feels fine for the most part. He sometimes, he feels atrial fibrillation but other times not. He has had a fairly high burden of atrial fibrillation on Holter. Last time, it was about 60%. He states he has cut back on alcohol but still drinks frequently. Still not using CPAP. Otherwise, no clear-cut symptoms like angina or shortness of breath. He feels that he starts drinking to deal with the stress. For medications, he remains on metoprolol and diltiazem with anticoagulation. Otherwise, just about the same as before. [facility] Medical History (Updated 01/29/25 @ 13:55 by Zeke Mcfarland MD) JOHNNIE (obstructive sleep apnea) Paroxysmal atrial fibrillation Surgical History Hx of colonoscopy History of throat surgery Family History Maternal Grandmother Mental health disorder Social History (Reviewed 04/23/25 @ 15:15 by Soraida Denise [facility]) Housing: Condominium Alcohol intake: current Alcohol intake frequency: 0-2 drinks per day Alcohol type: beer, wine and hard liquor Patient Tobacco Use Status: Never used Tobacco e-Cigarette/Vaping Use: Never Used service: No Current occupational status: employed Current occupation: [email or web address] Current occupational exposures/hazards: No Cognitive needs: No Hearing needs: No Vision needs: No Review of Systems Const Denies chills, Denies fatigue, Denies fever(s), Denies frequent falls, Denies weakness, Denies weight gain and Denies weight loss ENT Denies dizziness Card Denies chest pain, Denies leg edema, Denies lightheadedness, Denies palpitations, Denies dyspnea and Denies dyspnea on exertion Resp Denies cough, Denies dyspnea and Denies dyspnea on exertion GI Denies hematochezia Musc Denies abnormal gait, Denies muscle weakness, Denies numbness, Denies radiating pain into limb and Denies tingling Neuro Denies abnormal gait, Denies dizziness, Denies frequent falls, Denies numbness, Denies tingling and Denies weakness Endo Denies fatigue and Denies palpitations Physical Exam Vital Signs: Last Vital Signs Pulse 75 04/23/25 15:14 BP 128/74 04/23/25 15:14 BMI result Body Mass Index 25.7 Const General: comfortable and no acute distress Orientation/consciousness: patient oriented x3 HEENT Other: Unremarkable Head: Yes normal to inspection Neck Neck: Yes normal visual inspection Chest Chest palpation & inspection: normal inspection of the chest Resp Auscultation: clear to auscultation bilaterally Cardio Palpation: normal PMI Heart sounds: S1 normal heart sound present, S2 normal heart sound present, no gallops, no murmurs and no rubs GI Palpation (GI): Soft to palpation Back/Spine/Pelvis Other: unremarkable Skin General skin exam: no rashes or lesions noted Neuro General: patient oriented x3 Extrem General: Yes normal to inspection Psych Mental Status: mental status grossly normal Assessment & Plan Assessment & Plan (1) Paroxysmal atrial fibrillation: Code(s): I48.0 - Paroxysmal atrial fibrillation Category: Medical (2) HTN (hypertension): Code(s): I10 - Essential (primary) hypertension Category: Medical Qualifiers: Hypertension type: essential hypertension Qualified Code(s): I10 - Essential (primary) hypertension (3) Morbid obesity: Code(s): E66.01 - Morbid (severe) obesity due to excess calories Category: Medical (4) Excessive drinking alcohol: Code(s): F10.10 - Alcohol abuse, uncomplicated Category: Social Hx (5) JOHNNIE (obstructive sleep apnea): Code(s): G47.33 - Obstructive sleep apnea (adult) (pediatric) Category: Medical Plan Cardiac studies reviewed. In the echocardiogram, LVEF 55-60%. Described to have basal inferior/inferoseptal hypokinesis, but otherwise unremarkable. Normal myocardial perfusion imaging study. Hence above wall motion and finding could be artifactual. In the Holter monitor, underlying rhythm is sinus as well as atrial fibrillation. Overall atrial fibrillation burden is about 60%. For medications, continue the metoprolol/diltiazem. Continue anticoagulation. He needs labs done and there is already an order from PCP. With alcohol use, I do not believe he is a safe candidate for antiarrhythmic use. He is in the ideal candidate for ablation either but considering his young age and high atrial fibrillation burden, still reasonable get an EP consultation. Otherwise, mainly lifestyle modification which has been discussed numerous times. Weight loss, cut back on alcohol and be compliant with CPAP. Healthy diet. We have discussed these many times. Follow up after EP consultation. Discussion Notes During our conversation, I detailed the patient's current management of Atrial Fibrillation and the potential benefits of a cardiac ablation procedure as a consideration for persistent AFib. The patient was informed about the risk of arrhythmia recurrence post-ablation if alcohol consumption continues. We discussed moderation in alcohol intake as pivotal in enhancing the chances of procedural success and managing AFib stability. I addressed the issues with maintaining target heart rates during exercise and emphasized maintaining stress through regular light exercise. Consent for potential ablation was discussed, elaborating on risks, benefits, and potential outcomes if conducted. We agreed to the referral for consultation on ablation candidacy and made necessary arrangements for follow-up blood work and coordination with a GI specialist. Patient was informed and verbally consented to the use of an ambient scribe for clinic note documentation during this visit. Orders: Referrals Cardiac Electrophysiology Referral I48.0 - Paroxysmal atrial fibrillation Patient Instructions: - Keep taking Diltiazem and Metoprolol as prescribed. - Talk with heart rhythm specialist about getting possible ablation. - Try cutting down on how much alcohol you drink each day. - Do light exercise like walking and use an elliptical to help with stress, but watch your heart rate. - Go to your primary doctor for blood work as scheduled. - Manage stress by getting help with the care for your parents and organizing your work schedule. - Call us if you notice your heart feels like it's beating really fast or irregularly. Coding Level of Care Code Est Pt Level 4 (44802) Complex EM visit Add On G2211 Diagnoses Paroxysmal atrial fibrillation I48.0 Essential hypertension I10 Hypertension type: essential hypertension Morbid obesity E66.01 Excessive drinking alcohol F10.10 JOHNNIE (obstructive sleep apnea) G47.33
[2025-04-23 15:14] VITALS: BP 128/74; PULSE 75; BMI 25.7
--- OUTSIDE RECORDS SUMMARY | 2025-04-23 17:44 | XMS_ITS | Data Portability ---
Author Organization YOANNA Savage damián, [address] Address [address] [place] [address] Assessment Encounter Date Assessment Date Assessment LastModified [...] 6. Dental Pain Thank you for using [employer] today, please feel free to contact our office if you have any questions or concerns. ronchaga Not available 03/29/2024 17:29:51 Plan of Treatment Reminders Order Date Submit Date Provider Last Modified By Organization Details Last Modified Time Details Appointments None recorded. Lab mononucleos is, heterophile Ab, blood 2023 [place] [facility], [address] [place], [address], 17:15:57 Referral None recorded. Procedures None recorded. Surgeries None recorded. Imaging None recorded. Medication Orders Augmentin 875 mg-125 mg tablet 2023 [place] [id number], [address] [place], [address], 17:29:53 Patient TargetsNo targets recorded. Patient InstructionsNo instructions recorded. Reason for Referral None Reported. Results Created Date Observation Date Name Description Value Unit Range Abnormal Flag Note LastModifiedBy Organization Detail LastModifiedTime 03/29/2003/29/2024 monon ucleo sis, heter ophil e Ab, blood Unknown Analyte negati ve Not Available [address] [facility] [place], [address], 03/29/2024 16:50:39 03/29/2003/29/2024 monon ucleo sis, heter ophil e Ab, blood Unknown Analyte yes Not Available _ [facility] [address] [facility] [place], [address], 03/29/2024 16:50:39 Result Notes None recorded. Problems Name Problem SNOMED Code Status Onset Date Resolution Date Notes Provider Name and Address Organization Details Recorded Time Atrial fibrillation 27547619 Active Sarah Saint Mary null, PA - [facility] 16:28:14 Chronic obstructive pulmonary disease 04504101 Active Sarah Saint Mary null, PA - [facility] 16:28:25 Hypertensive disorder 95991925 Active Sarah Saint Mary null, PA - [facility] 16:28:34 Cervical lymphadenopath y 750088722 Active 2023 JERONIMO DRAKE, ASSURANCE SENIOR MANAGER INSURANCE [address] [place], [address], [place] - [facility] 4 16:50:27 Cervical lymphadenitis 1010607 Active 2023 JERONIMO DRAKE, RACHEL [address] [place], [address], [place] - [facility] 4 17:28:10 Problem Notes None recorded. Medical Equipment None Reported. Allergies Allergen ID Allergen Name Allergen Category Reaction Reaction Severity Criticality Documentation Date Start Date Code Code System Note Provider Name and Address Organization Details Recorded Time 529961 erythromy jia medicatio n Not available Not available Not available 03/29/2024 4053 RxNorm Sarah Saint Mary null, PA - [facility] 4 16:24:54 [...] Last Updated DateTime 187.96 cm 32.4 kg/m2 742259. 28 g 97 [degF] 16 /min 72 /min 95 % 95 % 123 mm[Hg] 89 mm[Hg] Sarah Saint Mary PA - [facility] 16:29:50 Social History None recorded. Functional Status Question Answer Note LastModified by Organizat ion Details LastModified Time What is your level of alcohol consumption? Occasional [email or web address] Information not available 03/29/2024 Mental Status None recorded. Family History Relationship [...] SNOMED-CT Code Diagnosis ICD10 Code Diagnosis Note [id number] [address] [facility] [address] [place] [address] 12/21/2015 15:46:30 12/21/2015 17:01:38 [id number] [address] [place] [address] 05/30/2020 15:14:10 05/30/2020 15:54:17 [id number] [address] [facility] [place] [address] 06/30/2016 18:11:27 06/30/2016 18:52:55 [id number] [place] [address] [facility] [address] 03/29/2024 16:11:15 03/29/2024 17:43:35 Cervical lymphadenopathy 872439502 R59.0 Cervical lymphadenitis 2264015 I88.9 Health Concerns Section Related Observation LastModified by Organization Detai ls LastModified Time None Recorded Concern Status LastModified by Organization Details LastModified Time None Recorded Advance Directives Directive None Recorded Payers Insurance Date Sequence Insurance Name Policy Number Policy Reyes Covered Member ID Reyes Member ID Guarantor Name 03/29/2024 1 [facility] (MEDICAID REPLACEMENT - O) [employer] [place]on [place] [id number] [place] 03/29/2024 1 [place] [facility] [place] [id number] [place]on [place] 10/02/[address] [facility] Insurance [place]on [place] Notes Date Note Type Note [...] JERONIMO DRAKE NP [address] [place], [address], [place] - [facility] 03/29/2024 17:37:19
== END 2025-04-23 15:38 | disposition home or self-care (01) ==
LOC: HO.HCS 15:05
PROVIDERS: PCP Nurse Practitioner Family; Visit Provider Internal Medicine
DX: I48.0 Paroxysmal atrial fibrillation (principal); I10 Essential (primary) hypertension; E66.01 Morbid (severe) obesity due to excess calories; F10.10 Alcohol abuse, uncomplicated; G47.33 Obstructive sleep apnea (adult) (pediatric)
CPT/HCPCS: 99214; G2211

== ENCOUNTER → 2025-04-23 15:04 | Outpatient (BNVA) | payer OTHER, SELFPAY | PROVIDERS: PCP Nurse Practitioner Family; Visit Provider Internal Medicine | DX: I48.0 Paroxysmal atrial fibrillation (principal); I10 Essential (primary) hypertension; E66.01 Morbid (severe) obesity due to excess calories; F10.10 Alcohol abuse, uncomplicated; G47.33 Obstructive sleep apnea (adult) (pediatric) | CPT/HCPCS: 99212 ==

== ENCOUNTER 2025-05-21 15:06 | Outpatient (AMB) | payer OTHER, SELFPAY ==
[2025-05-21 15:08] VITALS: BP 122/78; PULSE 72; RESP 16; TEMP 36.9; O2SAT 98; BMI 34.5
--- NOTE | 2025-05-21 15:08 | MHC.PC.OV ---
Vital Signs 05/21/25 15:08 Height 6 ft 2 in Weight 269 lb BMI 34.5 BP 122/78 Blood Pressure Location Lt brachial Position Sitting Respiration 16 Pulse 72 Pulse Source Pulse Oximeter Temp 98.4 F Temp Source Oral Pulse Oximetry (%) 98 Oxygen Delivery Method Room Air Intake Visit Reasons: PE Intake Note: pt coming in for PE Car Whacker Required: No Accompanied by: Self / Same As Patient Allergies erythromycin base Allergy (Verified 05/21/25 15:56) hives Medication List - Last Reconciled 05/21/25 by Иван Riley [facility] albuterol sulfate 90 mcg/actuation 2 puffs inhalation Q4-6H PRN apixaban (Eliquis) 5 mg PO BID cholecalciferol (vitamin D3) 1,250 mcg PO QWEEK diltiazem HCl CD 120 mg PO DAILY lorazepam 1 mg PO DAILY PRN 30 days metoprolol tartrate 100 mg PO BID mirtazapine 7.5 mg PO BEDTIME ondansetron 8 mg PO Q12H PRN 10 days umeclidinium 62.5 mcg/actuation (Incruse Ellipta) 1 inh PO DAILY Tobacco use date assessed: 05/21/25 Dental Screening Dental Screen Date: 05/21/25 Did you have a dental visit in the last 12 months?: Yes Did you have a dental problem in the last 6 months where you did not have access to dental care?: No Was dental information given to patient?: Patient has dentist HPI PE HPI Details History of Present Illness The patient is a 60-year-old male presenting for a routine follow-up and management of chronic conditions. He has a history of Chronic Obstructive Pulmonary Disease (COPD) and is under the care of a sales representative electric service. He also has Atrial Fibrillation and is followed by a director of agriculture. The patient is obese and continues to consume alcohol regularly despite being aware of the associated risks. He has a history of Nonalcoholic Fatty Liver Disease and is seeing a cisco administrator for management. He denies any urinary issues, chest pain, increased dyspnea, abdominal pain, hematochezia, constipation, or diarrhea. Health Maintenance - Colonoscopy scheduled with a cisco administrator Social History - Alcohol use: Regular consumption despite awareness of risks Review of Systems - Genitourinary: Denies urinary issues - Cardiovascular: Denies chest pain - Respiratory: Denies increased dyspnea - Gastrointestinal: Denies abdominal pain, hematochezia, constipation, diarrhea -denies any si or hi Physical Exam General: Cooperative, healthy appearing, comfortable, no acute distress and well developed, but obese Orientation: Patient oriented x3 Limitations: No limitations Head: Normal to inspection Ears: Hearing grossly normal bilaterally Nose: Normal external nose present Face and sinus: Normal facial exam Eyes: Appearance normal, both eyes and all related structures Neck: Normal visual inspection and Yes full ROM Respiratory: Normal respiratory effort and able to speak in complete sentences. Clear to auscultation bilaterally Cardiovascular: Regular rate and rhythm. Normal S1 and S2 GI: Normal to inspection. Soft to palpation and nontender : Testicles without masses/lesions and no hernias appreciated Skin: No rashes or lesions noted Neuro: Patient oriented x3 Extremities: Normal to inspection, no edema Results Plan The patient will continue to follow up with his sales representative electric service for management of Chronic Obstructive Pulmonary Disease COPD). He will also maintain regular appointments with his director of agriculture for Atrial Fibrillation management. A colonoscopy is scheduled with his cisco administrator, also monitored for his Fatty Liver Disease. Behavioral health support will be provided to address his alcohol use disorder. The patient is advised to have his labs done in the near future, fasting, and a follow-up appointment is scheduled in six months. Discussion Notes I discussed with the patient the importance of continuing care with his sales representative electric service and director of agriculture for COPD and Atrial Fibrillation, respectively. We also talked about the scheduled colonoscopy with his cisco administrator to monitor his liver condition. Behavioral health support was offered to help manage his alcohol use, and I emphasized the need for fasting labs before his next visit in six months. Patient Instructions - Continue regular follow-ups with your sales representative electric service and director of agriculture. - Attend the scheduled colonoscopy with your cisco administrator. - Engage with behavioral health support for alcohol use. - Complete fasting labs before your next visit in six months. [facility] Medical History JOHNNIE (obstructive sleep apnea) Paroxysmal atrial fibrillation Surgical History Hx of colonoscopy History of throat surgery Family History Maternal Grandmother Mental health disorder Social History Housing: Condominium Alcohol intake: current Alcohol intake frequency: 0-2 drinks per day Alcohol type: beer, wine and hard liquor Patient Tobacco Use Status: Never used Tobacco e-Cigarette/Vaping Use: Never Used service: No Current occupational status: employed Current occupation: [employer] Current occupational exposures/hazards: No Cognitive needs: No Hearing needs: No Vision needs: No Questionnaire PHQ-9 Over the last 2 weeks, how often have you been bothered by any of the following problems? 1. Little interest or pleasure in doing things: several days 2. Feeling down, depressed, or hopeless: not at all 3. Trouble falling or staying asleep, or sleeping too much: several days 4. Feeling tired or having little energy: several days 5. Poor appetite or overeating: several days 6. Feeling bad about yourself - or that you are a failure or have let yourself or your family down: several days 7. Trouble concentrating on things, such as reading the newspaper or watching television: not at all 8. Moving or speaking so slowly that other people could have noticed. Or the opposite - being so fidgety or restless that you have been moving around a lot more than usual: not at all 9. Thoughts that you would be better off or of hurting yourself in some way: not at all Total score: 5 Depression Screening Interpretation: Negative Depression Screening Done: Yes 57097 - PHQ-9 Billing: Yes Source: Developed by Drs. Luis Chaudhry, Fani Maldonado, Peter Pineda and colleagues, with an educational mahesh from [employer]. Thrive Questionnaire Date Thrive assessed: 05/21/25 I am a: Patient What is your living situation today?: I have a steady place to live Within the past 12 months, did the food you bought not last and you didn't have the money to get more?: Never true Within the past 12 months, did you worry whether your food would run out before you got money to buy more?: Never true Do you have trouble paying for medicines?: No Do you have trouble getting transportation to medical appointments?: No Do you have trouble paying your heating and electricity bill?: Yes Do you have trouble taking care of your child, family member or friend?: No Do you have trouble with day-to-day activities such as bathing, preparing meals, shopping, managing finances, etc.?: No Are you currently unemployed and looking for a job?: No Are you interested in more education?: No Please select the resources that you would like help with: None Currently or been in a relationship where the following occur: No concerns reported THRIVE Score: 1 AUDIT C Alcohol Use Questionnaire (AUDIT-C) 1. How often do you have a drink containing alcohol?: 4 or more times a week 2. How many drinks containing alcohol do you have on a typical day when you are drinking?: 3 or 4 3. How often do you have six or more drinks on one occasion?: Weekly Total Score: 8 Score Reviewed/Action Taken: Yes ESTHELA-7 AMB Questionnaire ESTHELA-7 Date ESTHELA - 7 assessed: 05/21/25 Feeling nervous, anxious, or on edge: 1 = Several days Not being able to stop or control worryin = Several days Worrying too much about different things: 1 = Several days Trouble relaxin = Not at all Being so restless that it is hard to sit still: 0 = Not at all Becoming easily annoyed or irritable: 0 = Not at all Feeling afraid as if something awful might happen: 0 = Not at all Total ESTHELA-7 score (0-4 normal; 5-9 mild; 10-14 moderate; 15-21 severe): 3 Source: Developed by Drs. Luis Chaudhry, Fani Maldonado, Peter Pineda and colleagues, with an educational mahesh from [employer]. ESTHELA-7 Assessment Billing ESTHELA-7 Assessment Tool: ESTHELA-7 Assessment 79144 Physical exam (Primary Care) Vital Signs: Last Vital Signs Temp 98.4 F 05/21/25 15:08 Pulse 72 05/21/25 15:08 Resp 16 05/21/25 15:08 BP 122/78 05/21/25 15:08 Pulse Ox 98 05/21/25 15:08 Oxygen Delivery Method Room Air 05/21/25 15:08 BMI result Body Mass Index 34.5 Tobacco/Smoking Status: Tobacco use Status Tobacco use date assessed 05/21/25 05/21/25 15:13 Patient Tobacco Use Status Never used Tobacco 05/21/25 15:13 e-Cigarette/Vaping Use Never Used 05/21/25 15:13 PHQ-9: PHQ-9 Score PHQ-9: Total score 5 05/21/25 15:33 Depression Screening Interpretation: Negative Thrive Assessment: Date of Thrive Assessment Date Thrive assessed 05/21/25 05/21/25 15:13 Currently or been in a relationship where the following occur: No concerns reported Coding Level of Care Code Est Pt Prev Care 40-64y(39235) Diagnoses Encounter for routine adult physical exam with abnormal findings Z00. Excessive drinking alcohol F10.10 Paroxysmal atrial fibrillation I48.0 Chronic obstructive pulmonary disease, unspecified COPD type J44.9 COPD type: unspecified COPD Additional Codes ESTHELA-7 Assessment Billing - ESTHELA-7 Assessment Tool: ESTHELA-7 Assessment 67153 ([id number]) PHQ-9 - 19584 - PHQ-9 Billing: Yes ([id number]) Assessment & Plan Assessment & Plan (1) Encounter for routine adult physical exam with abnormal findings: Code(s): Z00.01 - Encounter for general adult medical examination with abnormal findings Category: Medical (2) Excessive drinking alcohol: Code(s): F10.10 - Alcohol abuse, uncomplicated Category: Social Hx (3) Paroxysmal atrial fibrillation: Code(s): I48.0 - Paroxysmal atrial fibrillation Category: Medical (4) COPD (chronic obstructive pulmonary disease): Code(s): J44.9 - Chronic obstructive pulmonary disease, unspecified Category: Medical Qualifiers: COPD type: unspecified COPD Qualified Code(s): J44.9 - Chronic obstructive pulmonary disease, unspecified Plan . Orders: Orders Complete Blood Count Auto Diff Today Z00.01 - Encounter for general adult medical examination with abnormal findings Comprehensive [place]. Panel Fast Today Z00.01 - Encounter for general adult medical examination with abnormal findings Prostate Specific Antigen Scr Today Z00.01 - Encounter for general adult medical examination with abnormal findings TSH reflex Free T4 Today Z00.01 - Encounter for general adult medical examination with abnormal findings UA CC w/rflx Micro + Cult Today Z00.01 - Encounter for general adult medical examination with abnormal findings Lipid Panel Today Z00.01 - Encounter for general adult medical examination with abnormal findings
--- OUTSIDE RECORDS SUMMARY | 2025-05-21 15:09 | XMS_ITS | Data Portability ---
Author Organization YOANNA Savage dami[address] Address [address] [place] [address] Assessment Encounter Date Assessment Date Assessment LastModified [...] 6. Dental Pain Thank you for using [facility] today, please feel free to contact our office if you have any questions or concerns. milady Not available 03/29/2024 17:29:51 Plan of Treatment Reminders Order Date Submit Date Provider Last Modified By Organization Details Last Modified Time Details Appointments None recorded. Lab mononucleos is, heterophile Ab, blood 2023 ROMNEY _as[facility], [address] [facility] [place], [address], 17:15:57 Referral None recorded. Procedures None recorded. Surgeries None recorded. Imaging None recorded. Medication Orders Augmentin 875 mg-125 mg tablet 2023 [facility] #[id number], [address] [place], [address], 17:29:53 Patient TargetsNo targets recorded. Patient InstructionsNo instructions recorded. Reason for Referral None Reported. Results Created Date Observation Date Name Description Value Unit Range Abnormal Flag Note LastModifiedBy Organization Detail LastModifiedTime 03/29/20 24 03/29/2024 monon ucleo sis, heter ophil e Ab, blood Unknown Analyte negati ve Not Available [address] [place] [place], [address], 03/29/2024 16:50:39 03/29/20 24 03/29/2024 monon ucleo sis, heter ophil e Ab, blood Unknown Analyte yes Not Available _ [address] [facility] [facility] [place], [address], 03/29/2024 16:50:39 Result Notes None recorded. Problems Name Problem SNOMED Code Status Onset Date Resolution Date Notes Provider Name and Address Organization Details Recorded Time Atrial fibrillation 83230432 Active Sarah [place] null, [place] - [facility] 16:28:14 Chronic obstructive pulmonary disease 33854980 Active Sarah [place] null, [place] - [facility] 16:28:25 Hypertensive disorder 71314334 Active Sarah [place] null, [place] - [facility] 05/18/202 4 16:28:34 Cervical lymphadenopath y 513273423 Active 2023 JERONIMO NOELLE, BAND SAW FILER [address] [place], [address], [place] - [facility] 4 16:50:27 Cervical lymphadenitis 8332312 Active 2023 JERONIMO RACHEL DRAKE [address] [place], [address], [place] - [facility] 4 17:28:10 Problem Notes None recorded. Medical Equipment None Reported. Allergies Allergen ID Allergen Name Allergen Category Reaction Reaction Severity Criticality Documentation Date Start Date Code Code System Note Provider Name and Address Organization Details Recorded Time 866377 erythromy jia medicatio n Not available Not available Not available 03/29/2024 4053 RxNorm Sarah [place] null, [place] - [facility] 4 16:24:54 [...] in Arterial blood by Pulse oximetry Systolic And Diastolic Provider Name and Address Organization Details Last Updated DateTime 187.96 cm 32.4 kg/m2 980697. 28 g 97 [degF] 16 /min 72 /min 95 % 95 % 123/89 mm[Hg] Sarah B[place] - [facility] 16:29:50 Social History [...] SNOMED-CT Code Diagnosis ICD10 Code Diagnosis Note [id number] [address] [place] [address] 12/21/2015 15:46:30 12/21/2015 17:01:38 [id number] [address] [place] [address] 05/30/2020 15:14:10 05/30/2020 15:54:17 [id number] [address] [place] [address] 06/30/2016 18:11:27 06/30/2016 18:52:55 [id number] [place] [address] [facility] [place] [address] 03/29/2024 16:11:15 03/29/2024 17:43:35 Cervical lymphadenopathy 822115786 R59.0 Cervical lymphadenitis 5497602 I88.9 Health Concerns Section Related Observation LastModified by Organization Detai ls LastModified Time None Recorded Concern Status LastModified by Organization Details LastModified Time None Recorded Advance Directives Directive None Recorded Payers Insurance Date Sequence Insurance Name Policy Number Policy Reyes Covered Member ID Reyes Member ID Guarantor Name 03/29/2024 1 [facility] (MEDICAID REPLACEMENT - O) [employer] [place] [id number] [employer] [place] 03/29/2024 1 [place] [facility] [employer] [place] [id number] [employer] [place] 10/02/2022 [facility] [employer] Insurance [employer] [place] [...] JERONIMO DRAKE NP [address] [place], [address], [place] - [facility] 03/29/2024 17:37:19
--- OUTSIDE RECORDS SUMMARY | 2025-05-21 15:10 | XMS_ITS | Clinical Summary ---
Author Organization [address] [facility] Address [address] [place] [address] Phone Care Team Providers Care Law Librarian Name Role Phone Иван Riley NP Primary Care Provider Allergies Active Allergy Reactions Criticality Noted Date Comments Erythromycin Hives 02/27/2025 Medications Ventolin HFA 90 mcg/actuation inhaler Inhale 2 puffs by mouth every 4 (four) hours if needed for wheezing or shortness of breath. 5 Active Eliquis 5 mg tablet Take 1 tablet (5 mg total) by mouth 2 (two) times a day. 5 Active dilTIAZem CD (CARDIZEM CD) 120 mg 24 hr capsule Take 1 capsule (120 mg total) by mouth 1 (one) time each day. 5 Active LORazepam (ATIVAN) 1 mg tablet Take 1 tablet (1 mg total) by mouth 1 (one) time each day if needed for anxiety. 5 Active metoprolol tartrate (LOPRESSOR) 100 mg tablet Take 1 tablet (100 mg total) by mouth 2 (two) times a day. for 90 days 4 Active mirtazapine (REMERON) 7.5 mg tablet Take 1 tablet (7.5 mg total) by mouth at bedtime. 4 Active ondansetron ODT (ZOFRAN-ODT) 8 mg disintegrating tablet Dissolve 1 tablet (8 mg total) on top of the tongue every 12 (twelve) hours if needed for nausea or vomiting. 5 Active pantoprazole (PROTONIX) 20 mg EC tablet Take 1 tablet (20 mg total) by mouth 1 (one) time each day. 5 Active Incruse Ellipta 62.5 mcg/actuation inhalation Inhale 1 puff by mouth 1 (one) time each day. 5 Active cholecalciferol (VITAMIN D-3) 1,250 mcg (50,000 unit) capsule Take 1 capsule (50,000 Units total) by mouth 1 (one) time per week. Active doxycycline (ADOXA) 100 mg tablet Take 1 tablet (100 mg total) by mouth 2 (two) times a day. 5 Active fluticasone propionate (FLONASE) 50 mcg/actuation nasal spray Administer 1 spray into each nostril 2 (two) times a day. 4 Active ipratropium (ATROVENT) 42 mcg (0.06 %) nasal spray PLEASE SEE ATTACHED FOR DETAILED DIRECTIONS 4 Active gabapentin (NEURONTIN) 100 mg capsule 4 Active omeprazole OTC (PriLOSEC OTC) 20 mg EC tablet Take 1 tablet (20 mg total) by mouth. 0 Active MILK THISTLE ORAL Take by mouth. Active Active Problems Problem Noted Date Diagnosed Date Atrial fibrillation (CMS/[facility] V24, CMS/[facility] V28) 0 04/09/2025 Chronic obstructive pulmonar y disease (CMS/HCC V24, CMS/[facility] V28) 04/09/2025 Class 1 obesity 04/09/2025 Hypertensive disorder 04/09/2025 Cervical lymphadenitis 03/29/2024 Cervical lymphadenopathy 03/29/2024 Encounters Date Type Department Care Team Description 05/21/2025 1:50 PM EDT Office Visit Gastroenterology - [facility] [address] [address] Jaci Castaneda PA Arrived 04/09/2025 2:20 PM EDT Office Visit Gastroenterology - [facility] [address] [address] Jaci Castaneda PA Change in bowel habit (Primary Dx); Fatty liver 03/17/2025 Telephone Gastroenterology - [facility] [address] [address] Melissa Vital MD Consult Appointment 03/16/2025 Telephone Gastroenterology - [address] [place] [address] [facility] [address] [place] [address] Melissa Vital MD 02/27/2025 Telephone Gastroenterology [facility] [address] [facility] [address] [place] [address] Bennie Carrion MD SPECIAL PROCEDURE 02/25/2025 Telephone Gastroenterology [facility] 175 [facility] [address] [place] [address] Bennie Carrion MD information needed from Last 3 Months Surgical History Surgery Date Site/Laterality Comments COLONOSCOPY 12/06/2021 no specimens collected, recall 5 years COLONOSCOPY 04/11/2019 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 ESOPHAGOGASTRODUODENOSCOPY 12/06/2021 Family History Medical History Relation Name Comments Arthritis Father high blood pressure Father Colon cancer Father's Sister Arthritis Mother Cancer Other grandfather Colon cancer Paternal Grandmother Relation Name Status Comments Father Father's Sister Mother Other Paternal Grandmother Social History Tobacco Use Types Packs/Day Years Used Date Smoking Tobacco: Never Smokeless Tobacco: Never Tobacco Cessation:Counseling Given: Not Answered Comments:Occasional cigars Alcohol Use Standard Drinks/Week Comments Yes 12 (1 standard drink = 0.6 oz pure alcohol) at least once daily, but up to 3-4 drinks/day Sex and Gender Information Value Date Recorded Sex Assigned at Not on file Legal Sex Male 8:15 AM EST Gender Identity Not on file Sexual Orientation Not on file Obstetrics History Last Filed Vital Signs Vital Sign Reading Time Taken Comments Blood Pressure - - Pulse - - Temperature - - Respiratory Rate - - Oxygen Saturation - - Inhaled Oxygen Concentration - - Weight 122 kg (269 lb 3.2 oz) 05/21/2025 2:02 PM EDT Height 185.4 cm (6' 1 ) 05/21/2025 2:02 PM EDT Body Mass Index 35.52 05/21/2025 2:02 PM EDT Plan of Treatment Health Maintenance Due Date Last Done Comments DTaP,Tdap,and Td Vaccines (1 - Tdap) 1985 Hepatitis B Vaccines (1 of 3 - 19+ 3-dose series) 1985 Pneumococcal Vaccine: 50+ Ye ars (1 of 2 - PCV) 1985 Zoster Vaccines (1 of 2) 02/13/2016 COVID-19 Vaccine (1 - 2023-2 5 season) 2024 Cholesterol Screening (Lipid Panel) 02/20/2025 Colorectal Cancer Screening: Colonoscopy 02/20/2025 Depression Screening 02/20/2025 HIV Screening 02/20/2025 Hepatitis C Screening 02/20/2025 Social Influencers of Health Screening 02/20/2025 Hypertension/CHF/CAD Annual BMP Blood Test 04/09/2025 Influenza Vaccine (#1) 2025 RSV Immunization Adult Patie nts (1 - 1-dose 75+ series) 2041 HIB Vaccines Aged Out No longer eligi ble based on patient's age to complete this topic HPV Vaccines Aged Out No longer eligi ble based on patient's age to complete this topic Hepatitis A Vaccines Aged Out No long er eligible based on patient's age to complete this topic IPV Vaccines Aged Out No longer eligi ble based on patient's age to complete this topic MMR Vaccines Aged Out No longer eligi ble based on patient's age to complete this topic Meningococcal ACWY Vaccine Aged Out N o longer eligible based on patient's age to complete this topic Meningococcal B Vaccine Aged Out No l onger eligible based on patient's age to complete this topic RSV Immunization Patients Un shad 20 months Aged Out No longer eligible b ased on patient's age to complete this topic Varicella Vaccines Aged Out No longer eligible based on patient's age to complete this topic Insurance [place]ICA[place] - [place] Care Teams Law Librarian Relationship Specialty Start Date End Date Иван Riley NP [address] [facility] [place] PCP - General Family Medicine 02/27/25
== END 2025-05-21 15:56 | disposition home or self-care (01) ==
LOC: HO.HMCC 15:06
PROVIDERS: PCP Nurse Practitioner Family; Visit Provider Nurse Practitioner Family
DX: Z00.01 Encounter for general adult medical examination with abnormal findings (principal); F10.10 Alcohol abuse, uncomplicated; I48.0 Paroxysmal atrial fibrillation; J44.9 Chronic obstructive pulmonary disease, unspecified

== ENCOUNTER → 2025-05-21 15:06 | Outpatient (BNVA) | payer OTHER, SELFPAY | PROVIDERS: PCP Nurse Practitioner Family; Visit Provider Nurse Practitioner Family | DX: Z00.01 Encounter for general adult medical examination with abnormal findings (principal); J44.9 Chronic obstructive pulmonary disease, unspecified; E66.9 Obesity, unspecified; F10.10 Alcohol abuse, uncomplicated; I48.0 Paroxysmal atrial fibrillation; Z68.34 Body mass index [BMI] 34.0-34.9, adult | CPT/HCPCS: 96127; 99396 ==

== ENCOUNTER 2025-07-09 13:27 | Outpatient (REF) | payer OTHER, SELFPAY ==
--- OUTSIDE RECORDS SUMMARY | 2025-07-09 14:09 | XMS_ITS | Clinical Summary ---
Author Organization [facility] Address [address] [place] [address] Phone Care Team Providers Care Mental Health Social Worker Name Role Phone Иван Riley NP Primary Care Provider [phone] Allergies Active Allergy Reactions Criticality Noted Date [...] Problem Noted Date Diagnosed Date Atrial fibrillation (CMS/[facility] V24, CMS/FORMER[facility] V28) 0 04/09/2025 Chronic obstructive pulmonar y disease (CMS/HCC V24, CMS/FORMER[facility] V28) 04/09/2025 Class 1 obesity 04/09/2025 Hypertensive disorder 04/09/2025 Cervical lymphadenitis 03/29/2024 Cervical lymphadenopathy 03/29/2024 Encounters Date Type Department Care Team Description 05/22/2025 Telephone Gastroenterology - [address] [place] [address] [phone] Lili Hale MA 05/21/2025 1:50 PM EDT Office Visit Gastroenterology - 299 [facility] [address] [phone] Jaci Castaneda PA Change in bowel function (Primary Dx); Alcoholic fatty liver 05/21/2025 Telephone Gastroenterology - [address] [place] [address] [facility] [address] [phone] Melissa Vital MD 04/09/2025 2:20 PM EDT Office Visit Gastroenterology - 299 [place] [address] [facility] [address] [place] [phone] Jaci Castaneda PA Change in bowel habit (Primary Dx); Fatty liver from Last 3 Months Surgical History Surgery [...] 05/21/2025 2:02 PM EDT Plan of Treatment Upcoming Encounters Date Type Department Care Team (Late st Contact Info) Description 08/13/2025 12:30 PM EDT Appointment [facility] Endoscopy [address] [place] [phone] Melissa Vital MD [address] [place] [phone] Health Maintenance Due Date Last Done Comments DTaP,Tdap,and Td Vaccines (1 - Tdap) 1985 Hepatitis B Vaccines (1 of 3 - 19+ 3-dose series) 1985 Pneumococcal Vaccine: 50+ Ye ars (1 of 2 - PCV) 1985 Zoster Vaccines (1 of 2) 02/13/2016 COVID-19 Vaccine (2023-2 5 season) 2024 Depression Screening 11/12/2024 Cholesterol Screening (Lipid Panel) 02/20/2025 HIV Screening 02/20/2025 Hepatitis C Screening 02/20/2025 Social Influencers of Health Screening 02/20/2025 Hypertension/CHF/CAD Annual BMP Blood Test 04/09/2025 Influenza Vaccine (#1) 2025 Colorectal Cancer Screening: Colonoscopy 06/29/2035 06/29/2025 RSV Immunization Adult Patie nts (1 - [...] on patient's age to complete this topic Procedures Procedure Name Priority Date/Time Associated Diagnosis Comments COLONOSCOPY Routine 06/29/2025 3:22 PM EDT from Last 3 Months Results * COLONOSCOPY (06/29/2025 3:22 PM EDT) Anatomical Region Laterality Modality Endoscopy us Historical Provider GI~PROCEDURE ORDERABLES F inal Result from Last 3 Months Insurance [facility] [id number] [place] [id number] MEDICAID - [place] Care Teams Mental Health Social Worker Relationship Specialty Start Date End Date Иван Riley NP [address] [place], [place] PCP - General Family Medicine 02/27/25
[2025-07-09 16:16] LABS: MANUAL DIFF FLAG NO
[2025-07-09 16:20] LABS: Hematocrit 45.4 % (42.0-52.0); Hemoglobin 16.3 g/dl (14.0-18.0); Imm Gran Abs Auto 0.03 X10*3/uL (0.00-0.03); Imm Gran Pct Auto 0.6 % (0.0-0.4); Lymphocytes Absolute Auto 1.1 X10*3/uL (1.2-4.9); Mean Corpuscular HGB Conc 35.9 g/dl (31.0-36.0); Mean Corpuscular Hemoglobin 35.0 pg (27.0-33.0); Mean Corpuscular Volume 97.4 fL (80.0-98.0); NRBC Abs Auto 0.000 X10*3/uL (0.0-0.012); NRBC Pct Auto 0.0 /100WBC (0.0-0.2); Platelet Count 165 X10*3/uL (160-400); Red Blood Count 4.66 X10*6/uL (4.60-5.80); White Blood Count 4.8 X10*3/uL (4.8-10.8)
[2025-07-09 16:38] LABS: Appearance Urine Clear; Glucose Urine UA Negative (Negative); PH 6.5 (5.0-9.0); Specific Gravity - Urine 1.020 (1.005-1.025); UMIC TRIGGER UACC YES
[2025-07-09 16:40] LABS: Alanine Aminotransferase 133 U/L (0-40); Albumin Level 4.2 g/dL (3.5-5.0); Alkaline Phosphatase 51 U/L (39-117); Anion Gap 13 (12-20); Aspartate Amino Transferase 146 U/L (5-37); Blood Urea Nitrogen 9 mg/dL (9-16); Calcium 8.9 mg/dL (8.4-10.2); Carbon Dioxide 26 mmol/L (22-29); Chloride 103 mmol/L (96-108); Cholesterol 189 mg/dL (<200); Estimated Glomerular Filt Rate > 60; HDL Cholesterol 60 mg/dL (>40); Potassium 4.4 mmol/L (3.3-5.1); Sodium 138 mmol/L (135-145); Total Protein 6.7 g/dL (6.5-8.0); Triglycerides 84 mg/dL (<150)
[2025-07-09 16:53] LABS: UACC Culture Trigger YES
[2025-07-10 04:01] LABS: HBS Num1 0.38 mIU/mL (0-7.99); HBc Num1 0.06 S/CO (0.00-0.79); HBsAGNum1 0.66 S/CO (0.00-0.99); Hepatitis A Antibody IgM 0.18 Index (0-0.79); Hepatitis B Surface Antigen Negative (Negative); ~HepC Num1 0.10 S/CO (0.00-0.79); ~Hepatitis A Antibody IgM Nonreactive (Nonreactive); ~Hepatitis B Surface Antibody NONREACTIVE (Nonreactive); ~Hepatitis C Antibody Nonreactive (Nonreactive)
== END 2025-07-09 13:28 | disposition home or self-care (01) ==
LOC: HO.HMGCLDS 13:27
PROVIDERS: PCP Nurse Practitioner Family; Visit Provider Nurse Practitioner Family
DX: Z00.01 Encounter for general adult medical examination with abnormal findings (principal); R74.8 Abnormal levels of other serum enzymes; Z11.59 Encounter for screening for other viral diseases
CPT/HCPCS: 36415; 80053; 80061; 81001; 84153; 84443; 85025; 86704; 86706; 86709; 86803; 87086; 87340